=== PATIENT | female | born 1955 | race Caucasian/White ===

== ENCOUNTER 2018-11-17 05:34 | Inpatient (IN) ==
--- NOTE | 2018-10-30 08:35 | Anesthesiology Consultation ---
Date of Service October 30, 2018 Assessment & Plan (1) Encounter for pre-operative examination: PCP clearance 11/04/2018: "No contraindications to planned surgery. New- onset diabetes mellitus with A1c 6.5. No previous abnormal glucose. Discussed at length with Brandy. Will return after surgery for visit. No contraindication for surgery given A1c less than 7. Consider statin after surgery." Chart Review Chart Review: Acceptable Risk for Surgery and Patient seen in Pre Admission Testing Teaching & Discussion Instructed NPO after midnight before surgery, except medications with 15 cc of water. Medication instructions provided according to the PAT guidelines. History Surgery Operation Date: 11/17/18 07:00 Proposed Procedures p Right Total Knee Arthroplasty - Jules Kline MD Height/Weight Height: 5 ft 10 in Weight: 119.5 kg Allergies Allergy/AdvReac Type Severity Reaction Status Date / Time blue dye Allergy Intermediate Tachycardia Verified 10/27/18 11:10 adhesive tape AdvReac Mild SKIN Verified 10/27/18 11:11 BREAKS OUT Penicillins AdvReac Mild yeast Verified 10/27/18 11:10 infection Medications Home Medications Medication Instructions Recorded Confirmed Last Taken ergocalciferol (vitamin D2) 50,000 unit PO WK 10/27/18 10/27/18 Unknown [Vitamin D2] esomeprazole magnesium [Nexium] 40 mg PO QAM 10/27/18 10/27/18 Unknown hydrochlorothiazide 25 mg PO QAM 10/27/18 10/27/18 Unknown levothyroxine 75 mcg PO QAM 10/27/18 10/27/18 Unknown Past Medical History Medical History GERD (gastroesophageal reflux disease) Hypertension Hypothyroidism Obesity Osteoarthritis Premature ventricular contractions DETECTED WHILE BEING MONITORED FOR COLONOSCOPY 2017 Past Family History Family History Father Family history of diabetes mellitus Past Surgical History Surgical History H/O eye surgery LEFT ORBITAL REPAIR H/O foot surgery RT SIDE/BUNIONECTOMY AND HAMMER TOE CORRECTION History of colonoscopy History of dilatation and curettage History of esophagogastroduodenoscopy (EGD) History of hysterectomy History of tooth extraction Nausea and vomiting after administration of anesthetic agent Past Anesthesia History No Family Hx of Anesthesia Complications and Other PONV. History of PONV Yes Motion Sickness Screening History of Motion Sickness: Yes Social History Smoking Status: Never smoker Do You Dip or Chew Tobacco: No Hx Alcohol Use: No Hx Substance Use: No substance use type: does not use Exercise / Class Metabolic Activity II 4-5 Yardwork/Stairs/Walk up hill (denies CP or SOB with stairs, but avoiding stairs lately 2/2 knee pain) Review of Systems Pt denies any recent chest pain, shortness of breath, palpitations, cough, fever or URI. Physical Exam Vital Signs BP: 131/66 (pt reports she did not tkae her HCTZ yet this morning) P: 61bpm SPO2: 97% RA T: 97.9 F R: 16 ENMT Mouth: + dental restorations (few caps); no chipped teeth and no loose teeth Thyromental Distance: > or= 3.5 Finger Breadths (3.5) Mallampati Class: II Neck + thick neck; neck extension not limited Respiratory normal respiratory effort Auscultation: lungs clear to auscultation bilaterally Cardiovascular Rate/Rhythm: regular rate and regular rhythm Heart Sounds: no murmur Occ ectopic beat. Testing Electrocardiogram Date: 10/30/18 Findings: + NSR @ (62) Frequent PVCs. Chest X-Ray Date: 10/30/18 Findings: + NAD Laboratory Results 10/30/18 08:21 10/30/18 08:21 Blood Type O Positive 10/30/18 08:21 Antibody Screen NEGATIVE 10/30/18 08:21 PT 10.6 Seconds (9.0-12.0) 10/30/18 08:21 INR 1.0 (0.9-1.1) 10/30/18 08:21 APTT 23.7 Seconds (21.0-31.0) 10/30/18 08:21 Hemoglobin A1c 6.5 % (4.5-5.6) H 10/30/18 08:21 Urine Color Yellow 10/30/18 08:21 Urine Appearance Clear (Clear) 10/30/18 08:21 Urine pH 6.0 (4.5-7.5) 10/30/18 08:21 Ur Specific Stuart 1.008 (1.000-1.030) 10/30/18 08:21 Urine Protein Negative (Negative) 10/30/18 08:21 Urine Glucose (UA) Negative (Negative) 10/30/18 08:21 Urine Ketones Negative (Negative) 10/30/18 08:21 Urine Nitrite Negative (Negative) 10/30/18 08:21 Ur Leukocyte Esterase 2+ (Negative) H 10/30/18 08:21 Urine WBC (Auto) 10-30 /hpf (0-5) H 10/30/18 08:21 Urine RBC (Auto) 0-4 /hpf (0-4) 10/30/18 08:21 U Hyaline Cast (Auto) 0 /lpf (0-5) 10/30/18 08:21 U Epithel Cells (Auto) >30 /lpf (0-5) H 10/30/18 08:21 Urine Bacteria (Auto) Negative (Negative) 10/30/18 08:21 10/30/18 08:21 Urine Culture - Final Urine,Clean Catch More than three types of organisms present, all moderate counts mixed probable skin ramon. No further identifications or sensitivities to follow.
--- NOTE | 2018-10-30 08:44 | PAT Medication Instructions ---
Medication Instructions Date of Service October 30, 2018 Home Medications ergocalciferol (vitamin D2) 50,000 unit PO WK esomeprazole magnesium [Nexium] 40 mg PO QAM hydrochlorothiazide 25 mg PO QAM levothyroxine 75 mcg PO QAM DO NOT take the morning of surgery ergocalciferol (vitamin D2) 50,000 unit PO WK hydrochlorothiazide 25 mg PO QAM Take morning of surgery With a small sip of water, OTHERWISE NOTHING TO EAT OR DRINK AFTER MIDNIGHT: esomeprazole magnesium [Nexium] 40 mg PO QAM levothyroxine 75 mcg PO QAM Other Notes If you have any questions please call us at [phone] or [phone] or [phone] or [phone]
--- NOTE | 2018-10-30 09:26 | XRay Report ---
XR chest Pre-admission PA/Lat CLINICAL HISTORY: Preoperative evaluation COMPARISON STUDY: No previous studies for comparison. FINDINGS: Lung volumes are normal. There is no pneumothorax or pleural effusion. There is no consolid ation or evidence for pulmonary edema. Cardiac size is normal. Mediastinal contours are normal. IMPRESSION: No acute cardiopulmonary findings. Electronically signed by: Dejuan Angel M.D. 10/30/2018 9:25 AM
[2018-10-30 10:16] LABS: Basophils # (auto) 0.03 K/uL (0-0.2); Basophils % (auto) 0.4 %; Eosinophils # (auto) 0.24 K/uL (0-0.5); Eosinophils % (auto) 3.1 %; Hematocrit (blood only) 39.4 % (37-47); Hemoglobin 13.4 g/dL (12.0-16.0); Immature Granulocytes # (auto) 0.02 K/uL (0.00-0.02); Immature Granulocytes % (auto) 0.3 %; Lymphocytes # (auto) 2.96 K/uL (1.2-3.4); Mean Corpuscular Volume 89.1 fL (80-100); Mean Platelet Volume 10.7 fL (7.4-10.4); Monocytes % (auto) 7.7 %; Neutrophils # (auto) 3.94 K/uL (1.4-6.5); Neutrophils % (auto) 50.5 %; Platelet Count 252 K/uL (130-400); RDW Coefficient of Variation 13.8 % (11.5-14.5); RDW Standard Deviation 44.9 fL (36.4-46.3); Red Blood Count 4.42 M/uL (4.2-5.4); White Blood Count 7.79 K/uL (4.8-10.8)
[2018-10-30 10:25] LABS: Albumin Level 3.4 gm/dl (3.4-5.0); BUN Creatinine Ratio 14.5 (10-20); Calcium 8.6 mg/dl (8.5-10.1); Creatinine Clr Calc Pharmacy 87.8 ml/min; Est GFR (African American) 76.8; Est GFR (Non-African American) 66.3; Potassium 3.8 mmol/L (3.5-5.1)
[2018-10-30 10:26] LABS: Estimated Average Glucose 140 mg/dl; Hemoglobin A1C 6.5 % (4.5-5.6)
[2018-10-30 10:29] LABS: Appearance Urine Clear (Clear); Bacteria Urine Automated Negative (Negative); Bilirubin Urine Negative (Negative); Blood Urine Negative (Negative); Cast Urine Automated 0 /lpf (0-5); Color Urine Yellow; Epithelial Cell Urine Auto >30 /lpf (0-5); Glucose Urine UA Negative (Negative); Ketones Urine Negative (Negative); Leukocyte Esterase Urine 2+ (Negative); Nitrite Urine Negative (Negative); Protein Urine Negative (Negative); RBC Urine Automated 0-4 /hpf (0-4); Specific Gravity Urine 1.008 (1.000-1.030); Urobilinogen Urine Negative (Negative)
[2018-10-30 10:33] LABS: Partial Thromboplastin Ratio 0.9; Partial Thromboplastin Time 23.7 Seconds (21.0-31.0); Prothrombin Time 10.6 Seconds (9.0-12.0)
--- NOTE | 2018-11-11 15:53 | History and Physical Report ---
DATE OF ADMISSION: 11/17/2018 CHIEF COMPLAINT: Right knee pain. HISTORY OF PRESENT ILLNESS: The patient is a 63-year-old female with known osteoarthritis about her bilateral knees, right worse than left. She has had previous corticosteroid as well as viscosupplementation injections. She continues to have pain with activities of daily living. She has pain with prolonged weightbearing and standing activities. She has difficulty with any kneeling, bending, or squatting activities. Due to ongoing pain and disability, she now desires to proceed with right total knee arthroplasty. PAST MEDICAL HISTORY: Type 2 diabetes, borderline hypercholesterolemia, hypothyroidism, hypertension, osteoarthritis, vitamin D deficiency. PAST SURGICAL HISTORY: Facial surgery, foot surgery. MEDICATIONS: Vitamin C 1000 mg 2 tablets daily, vitamin D 50,000 units weekly, Nexium 40 mg daily, HCTZ 25 mg daily, Ativan 0.5 mg daily p.r.n., scopolamine transdermal patch every 3 days, Synthroid 75 mcg daily, valacyclovir 1 gram 2 tablets twice daily at onset of symptoms. ALLERGIES: PROTONIX AND PENICILLIN. SOCIAL HISTORY AND REVIEW OF SYSTEMS: Noncontributory. PHYSICAL EXAMINATION: GENERAL: Well-nourished, well-developed, obese female who appears her stated age. HEENT: Normocephalic, atraumatic, extraocular movements intact, oropharynx pink and moist. NECK: Supple without adenopathy. LUNGS: Clear to auscultation bilaterally. HEART: Regular rate and rhythm. ABDOMEN: Soft, nontender, nondistended, obese. EXTREMITIES: The upper extremities are within normal limits. The right knee is neutrally aligned. She complains primarily of medial compartment pain. Her range of motion is from to 125 degrees. X-RAYS: X-rays were reviewed. She has severe osteoarthritis about the right knee with bone on bone arthritis of the medial compartment. There are medial joint line osteophytes. There is severe patellofemoral arthritis with joint line narrowing and osteophyte as well. IMPRESSION: Right knee degenerative joint disease. PLAN: Risks versus benefits were discussed, consent was obtained. The patient's primary care physician is Shelly Tejeda. Will proceed with right total knee arthroplasty as indicated.
[2018-11-17] MEDS ORDERED: GABAPENTIN 300 MG x 2 PO SCH (06:00)
[2018-11-17] MEDS ORDERED: CeleBREX 200 MG CAP PO SCH (06:00)
[2018-11-17] MEDS ORDERED: TRANEXAMIC ACID 1,000 MG **IV Pre-op IV SCH (06:00)
[2018-11-17] MEDS ORDERED: FAMOTIDINE 20 MG TAB PO SCH (06:00)
[2018-11-17] MEDS ORDERED: ACETAMINOPHEN 500 MG TAB PO SCH (06:00)
[2018-11-17] MEDS ORDERED: dexAMETHasone 4 MG TAB PO SCH (06:00)
[2018-11-17] MEDS ORDERED: ROPIVACAINE 0.5% HCL/PF 150 MG, BUPIVACAINE 0.5% MPF 30 ML, EPINEPHrine 30MG/30ML (OR U... INFIL SCH (06:00)
[2018-11-17] MEDS ORDERED: CLINDAMYCIN 600 MG/54 ML BAG IV SCH (06:00)
[2018-11-17] MEDS ORDERED: LR 500ML BOLUS, THEN 15ML/HR IV SCH (06:00)
[2018-11-17] MEDS ORDERED: ROPIVACAINE 0.5% 5 MG/ML 30 ML VIAL ONE (06:28)
[2018-11-17] MEDS ORDERED: BUPIVACAINE 0.5 % 5 MG/1 ML PF 10ML VIAL ONE (06:28)
[2018-11-17] MEDS ORDERED: EPINEPHrine INJ 1 MG/ML AMP ONE (06:28)
[2018-11-17] MEDS ORDERED: fentaNYL citrate 100 MCG/2 ML VIAL ONE (06:29)
[2018-11-17] MEDS ORDERED: MIDAZOLAM HCL 1 MG/ML 2ML VIAL ONE (06:29)
[2018-11-17] MEDS ORDERED: PROPOFOL IV EMULSION 10 MG/ML 20 ML VIAL IV ONE ×2 (06:29→09:34)
[2018-11-17] MEDS ORDERED: TRANEXAMIC ACID 1,000 MG **IV Intra-op IV SCH (06:30)
[2018-11-17] MEDS ORDERED: POVIDONE-IODINE OP SOLN 30 ML BTL ONE (07:19)
[2018-11-17] MEDS ORDERED: ORTHO JOINT ANESTHETIC ONE (07:19)
[2018-11-17] MEDS ORDERED: BACITRACIN INJ 50,000 UNIT VIAL ONE (07:20)
[2018-11-17] MEDS ORDERED: ePHEDrine sulfate 50 MG/ML AMP IV PRN (07:36)
[2018-11-17] MEDS ORDERED: HYDROmorphone INJ 1 MG/ML SYRINGE IV PRN (07:36)
[2018-11-17] MEDS ORDERED: ATROPINE SULFATE 0.1 MG/ML 10ML SYR IV PRN (07:36)
[2018-11-17] MEDS ORDERED: LABETALOL HCL IV 5 MG/ML 20ML IV PRN (07:36)
[2018-11-17] MEDS ORDERED: PHENYLEPHRINE 100MCG/ML 5ML SYR IV PRN (07:36)
[2018-11-17] MEDS ORDERED: fentaNYL citrate 100 MCG/2 ML VIAL IV PRN (07:36)
[2018-11-17] MEDS ORDERED: ONDANSETRON INJ 2 MG/ML 2 ML VIAL IV PRN ×2 (07:36→11:21)
--- NOTE | 2018-11-17 08:00 | History & Physical Bridge Note ---
Date of Service November 17, 2018 History & Physical Bridge Note I have examined the patient, reviewed the History & Physical and in the interval since the performance of the History & Physical I have noted the following changes of clinical significance: no changes noted
--- NOTE | 2018-11-17 09:53 | Operative Report ---
Post Operative Report Pre & Post Diagnosis Operation Date: 11/17/18 08:20 Pre-Op Diagnosis: RIGHT KNEE OSTEOARTHRITIS Post-Op Diagnosis: RIGHT KNEE OSTEOARTHRITIS Procedure Operation Date: 11/17/18 08:20 Actual Procedures p Right Total Knee Arthroplasty, Cemented(Right) - Jules Kline MD Surgeon Jules Kline MD Lining Setter Jonathon Estimated Blood Loss 10 Findings Consistent with Post-Op Diagnosis Specimens Bone fragments Anesthesia Type Spinal Complications none Disposition Accompanied Patient To Recovery: No Disposition: Recovery Room Indications Knee pain Description of Procedure Patient's right leg was prepped and draped in usual sterile manner. The limb was exsanguinated with an Esmarch bandage and tourniquet inflated to 300 mmHg. Longitudinal incision was made and a medium parapatellar was made per the patella was everted and knee was flexed. The fat pad was removed and the proximal tibia was osteotomized bone fragment was removed. Next a drill was used to gain access to the femoral canal and a flexible alignment guide was placed in the distal femoral cut was made. The femur sized to a size 5 anterior shift was utilized in the tibial and femoral cuts were all made. After removal of all bone fragments the medial and lateral meniscal remnants were made in trial femur was placed in the drill was placed for the femoral pegs and the trial femur was placed. Blunt Hohmann was used to present the tibia was size 4 tibia was chosen in size 19 poly-was chosen. Patella was reamed and a 36 mm patella was chosen. The patella trial tracked quite well the knee good range of motion the patella was in other trials were removed the knee was thoroughly irrigated periarticular joint mix was injected and the final components were impacted into position. Cement was mixed and the final components were cemented in position and remove all excess cement the Betadine soak was utilized and Hemovac drain was placed. Fascia was closed using #1 Vicryl subcutaneous was closed using 0 Dexon and the skin was closed was applied. Sterile dressing of Adaptic 4 x 4's sterile web roll and a lipase is applied. Mr. Holt was utilized all portions of the including prepping draping surgical assistance wound closure and dressing application. I attest to the content of the Intraoperative Record and any orders documented therein. Any exceptions are noted below.
--- NOTE | 2018-11-17 11:07 | Anesthesiology Progress Note ---
Date of Service November 17, 2018 Anesthesia Post Procedure Vital Signs Vital Signs: Temp Pulse Pulse Resp BP BP Pulse Ox 11/17/18 10:55 36.2 C L 84 18 128/80 96 11/17/18 10:45 84 16 120/67 98 11/17/18 10:35 90 19 104/59 L 98 11/17/18 10:27 36.2 C L 92 H 20 89/50 L 97 11/17/18 06:27 36.5 C 75 18 158/105 H Notes Mental Status: alert / awake / arousable Patient Amnestic to Procedure: Yes Nausea / Vomiting: adequately controlled Pain: adequately controlled Airway Patency, RR, SpO2: stable & adequate BP & HR: stable & adequate Hydration State: stable & adequate Neuraxial Anesthesia: was administered and sensory block is resolving Anesthetic Complications: no major complications apparent and Pt Satisfied with anesthetic care
[2018-11-17] MEDS ORDERED: SODIUM CHLORIDE 0.9% 1000ML 1,000 ML IV SCH (11:21)
[2018-11-17] MEDS ORDERED: BISACODYL 10 MG SUPP PR PRN (11:21)
[2018-11-17] MEDS ORDERED: HYDROmorphone INJ 0.5 MG/0.5 ML SYR IV PRN (11:21)
[2018-11-17] MEDS ORDERED: MAGNESIUM HYDROXIDE SUSP 30 ML UDC PO PRN (11:21)
[2018-11-17] MEDS ORDERED: NALOXONE HCL 0.4 MG/1 ML VIAL/CARP IV PRN (11:21)
[2018-11-17] MEDS ORDERED: PHARMACY GLYCEMIC MGMT CONSULT PRN (11:33)
[2018-11-17] MEDS ORDERED: GLUCOSE 40% GEL 15 GM TUBE PO PRN (11:45)
[2018-11-17] MEDS ORDERED: DEXTROSE 50% 50 ML SYRINGE IV PRN (11:45)
[2018-11-17] MEDS ORDERED: CARBOHYDRATES FOR HYPOGLYCEMIA PO PRN (11:45)
[2018-11-17] MEDS ORDERED: GLUCOSE 10 TABS/TUBE PO PRN (11:45)
[2018-11-17] MEDS ORDERED: GLUCAGON FOR INJ 1 MG VIAL IM PRN (11:45)
--- NOTE | 2018-11-17 11:47 | XRay Report ---
XR knee RT 2V routine HISTORY: 63 years-old Female Surgical Post Op right knee total joint arthroplasty. COMPARISON: None available TECHNIQUE: 2 views of the right knee FINDINGS: Right knee total joint arthroplasty with patellar resurfacing. Alignment is satisfactory without acut e fracture or retained foreign body. Surgical drainage catheter is noted with expected postsurgical s oft tissue swelling and deep tissue air. IMPRESSION: Right knee total joint arthroplasty with satisfactory alignment. The above report was generated using voice recognition software. It may contain grammatical, syntax o r spelling errors. Electronically signed by: Sea Antunez M.D. 11/17/2018 11:46 AM
[2018-11-17] MEDS: INSULIN ASPART 100 UNITS/ML 3 ML PEN SC SCH ×3 (13:28→21:20)
[2018-11-17] MEDS: ACETAMINOPHEN 500 MG TAB PO SCH ×2 (13:31→21:21)
--- NOTE | 2018-11-17 13:56 | Pharmacy Report ---
Glycemic Control Consultation - Date of Service November 17, 2018 - Scope Scope: Glycemic Pharmacist consulted by Dr Jaime Holt on 11-17-18 for glycemic control and to write orders per [facility] inpatient glycemic control protocol - Objective Weight: 117.934 kg Accuchecks BSG (last 24hrs): 11/17/18 11/17/18 05:57 12:03 POC Glucose 115 H 159 H HbA1c: Hemoglobin A1c 6.5 % (4.5-5.6) H 10/30/18 08:21 - Recent Pertinent Medications Outpatient Anti-diabetic Regimen: * no anti-diabetic meds at home * A1c = 6.5 % 10-30-18 Risk Factors for Insulin Resistance: * Steroids: Dxm 8 mg po x 1 preop, ortho (contains Dxm) * Recent Surgery: POD 0 * Diet: T2DM - Assessment & Plan Assessment & Plan: ASSESSMENT: * Patient is a 63 year old female, now s/p R TKA. PMHx significant for hypothyroidism, htn, osteoarthritis, DM2. Patient reports not being on any anti-diabetic medications at home despite A1C. Current A1C places her into the diabetic category. * Per nurse, patient very nervous about being on insulin in hospital - she talked with patient and agreeable to try if needed. * Patient received dexamethasone preop and also ortho mixture (contains dex) so anticipate steroid induced hyperglycemia postop - will utilize basal/bolus dosing PLAN FOR INPATIENT GLYCEMIC CONTROL: * Basal insulin - start with dinner x 1 - conservative with dosing since likely insulin sensitive * Lantus with dinner based upon BSG -For BSG less than 180 mg/dL - no Lantus -For BSG 180 mg/dL or greater - Lantus 15 units * Bolus insulin - add overnight check * NovoLog per scale ACHS or Q6hrs while NPO * Goal Range: Low 110 mg/dL - High 140 mg/dL * Correction Factor: 15 mg/dL/unit * Nutritional / Prandial insulin per carb ratio of 1 unit per 6 grams CHO consumed * Please note that the plan above was derived based on current level of insulin resistance and hospital stress. These recommendations are appropriate for inpatient admission only. Plan of care upon discharge will need to be reassessed to avoid potential outpatient hypo/hyperglycemia. Thank you.
[2018-11-17] MEDS ORDERED: LANTUS PER UNIT CHARGE SQ SCH ×2 (16:30→21:00)
[2018-11-17] MEDS: FERROUS SULFATE 325 MG TAB PO SCH (18:01)
[2018-11-17] MEDS: CLINDAMYCIN 600 MG in DEXTROSE 5% 50 ML IV SCH (18:10)
[2018-11-17] MEDS: ASPIRIN 81 MG ECTAB PO SCH (21:21)
[2018-11-17] MEDS: SENNA 8.6 MG TAB PO SCH (21:21)
[2018-11-17] MEDS: DOCUSATE SODIUM 100 MG CAP PO SCH (21:21)
[2018-11-17] MEDS: OXYCODONE HCL IR 5 MG TAB (IMMEDIATE RELEASE) PO PRN (22:58)
[2018-11-18] MEDS ORDERED: INSULIN ASPART 100 UNITS/ML 3 ML PEN SC SCH
[2018-11-18] MEDS: CLINDAMYCIN 600 MG in DEXTROSE 5% 50 ML IV SCH (00:23)
[2018-11-18 05:40] LABS: Hematocrit (blood only) 33.8 % (37-47); Hemoglobin 11.9 g/dL (12.0-16.0); Mean Corpuscular Hgb Conc 35.2 g/dL (32-36); Mean Corpuscular Volume 86.2 fL (80-100); Mean Platelet Volume 10.2 fL (7.4-10.4); Platelet Count 254 K/uL (130-400); RDW Coefficient of Variation 13.8 % (11.5-14.5); RDW Standard Deviation 43.1 fL (36.4-46.3); Red Blood Count 3.92 M/uL (4.2-5.4); White Blood Count 15.41 K/uL (4.8-10.8)
[2018-11-18] MEDS: OXYCODONE HCL IR 5 MG TAB (IMMEDIATE RELEASE) PO PRN ×4 (05:58→21:25)
[2018-11-18] MEDS: ACETAMINOPHEN 500 MG TAB PO SCH ×3 (05:58→21:25)
[2018-11-18] MEDS: LEVOTHYROXINE SODIUM 75 MCG TABLET PO SCH (05:59)
[2018-11-18 06:09] LABS: BUN Creatinine Ratio 19.8 (10-20); Calcium 8.4 mg/dl (8.5-10.1); Creatinine Clr Calc Pharmacy 95.5 ml/min; Est GFR (African American) 85.7; Potassium 3.1 mmol/L (3.5-5.1)
--- NOTE | 2018-11-18 07:16 | Anesthesiology Progress Note ---
Date of Service November 18, 2018 Anesthesia Post Procedure Vital Signs Vital Signs: Temp Pulse Pulse Resp BP BP Pulse Ox 11/18/18 03:17 36.5 C 57 L 14 115/71 96 11/17/18 23:07 36.6 C 62 14 126/76 95 11/17/18 19:16 36.6 C 69 17 126/75 97 11/17/18 15:34 36.9 C 85 17 129/82 95 11/17/18 14:15 36.7 C 82 16 129/78 95 11/17/18 13:13 37.3 C 86 16 123/79 95 11/17/18 12:17 36.4 C L 76 16 133/85 96 11/17/18 11:56 77 18 130/82 95 11/17/18 11:22 36.7 C 73 18 124/77 93 11/17/18 11:05 81 15 129/74 93 11/17/18 10:55 36.2 C L 84 18 128/80 96 11/17/18 10:45 84 16 120/67 98 11/17/18 10:35 90 19 104/59 L 98 11/17/18 10:27 36.2 C L 92 H 20 89/50 L 97 Pain Intensity Right Knee: Pain Intensity: 5 Notes Mental Status: alert / awake / arousable and participated in evaluation Patient Amnestic to Procedure: Yes Nausea / Vomiting: adequately controlled Pain: adequately controlled Airway Patency, RR, SpO2: stable & adequate BP & HR: stable & adequate Hydration State: stable & adequate Neuraxial Anesthesia: was administered and sensory block resolved Anesthetic Complications: no major complications apparent and Pt Satisfied with anesthetic care
--- NOTE | 2018-11-18 07:22 | Orthopedic Progress Note ---
Date of Service November 18, 2018 Assessment & Plan (1) Status post right knee replacement: 63 yo female stable POD #1 s/p right TKA 1. Med management 2. DVT prophylaxis- ASA, SCDs 3. PT/OT 4. D/C planning- home w/ HH Subjective Pt resting in bed, pain controlled, denies complaints Physical Exam Vital Signs (Past 24 Hours): Last Vital Signs Temp 36.5 C 11/18/18 03:17 Pulse 57 L 11/18/18 03:17 Resp 14 11/18/18 03:17 BP 115/71 11/18/18 03:17 Pulse Ox 96 11/18/18 03:17 Physical Exam: Toes mobile, N/V/I, dressing and drain in place Results & Data Laboratory Results 11/18/18 11/18/18 11/18/18 Range/Units 05:11 05:11 00:13 WBC 15.41 H (4.8-10.8) K/uL RBC 3.92 L (4.2-5.4) M/uL Hgb 11.9 L (12.0-16.0) g/dL Hct 33.8 L (37-47) % MCV 86.2 (80-100) fL MCH 30.4 (25-34) pg MCHC 35.2 (32-36) g/dL RDW Std Deviation 43.1 (36.4-46.3) fL RDW Coeff of Jovita 13.8 (11.5-14.5) % Plt Count 254 (130-400) K/uL MPV 10.2 (7.4-10.4) fL Sodium 143 (136-145) mmol/L Potassium 3.1 L (3.5-5.1) mmol/L Chloride 106 (98-107) mmol/L Carbon Dioxide 27 (21-32) mmol/L Anion Gap 10.0 (3-11) BUN 17 (7-18) mg/dl Creatinine 0.84 (0.6-1.2) mg/dl Est Cr Clr Drug Dosing 95.5 ml/min Est GFR ( Amer) 85.7 Est GFR (Non-Af Amer) 74.0 BUN/Creatinine Ratio 19.8 (10-20) Glucose 129 H (70-99) mg/dl POC Glucose 125 H (70-99) Calcium 8.4 L (8.5-10.1) mg/dl 11/17/18 11/17/18 11/17/18 Range/Units 20:45 17:23 12:03 WBC (4.8-10.8) K/uL RBC (4.2-5.4) M/uL Hgb (12.0-16.0) g/dL Hct (37-47) % MCV (80-100) fL MCH (25-34) pg MCHC (32-36) g/dL RDW Std Deviation (36.4-46.3) fL RDW Coeff of Jovita (11.5-14.5) % Plt Count (130-400) K/uL MPV (7.4-10.4) fL Sodium (136-145) mmol/L Potassium (3.5-5.1) mmol/L Chloride (98-107) mmol/L Carbon Dioxide (21-32) mmol/L Anion Gap (3-11) BUN (7-18) mg/dl Creatinine (0.6-1.2) mg/dl Est Cr Clr Drug Dosing ml/min Est GFR ( Amer) Est GFR (Non-Af Amer) BUN/Creatinine Ratio (10-20) Glucose (70-99) mg/dl POC Glucose 171 H 143 H 159 H (70-99) Calcium (8.5-10.1) mg/dl
[2018-11-18] MEDS: FERROUS SULFATE 325 MG TAB PO SCH ×2 (08:47→17:18)
[2018-11-18] MEDS: DOCUSATE SODIUM 100 MG CAP PO SCH ×2 (08:47→21:24)
[2018-11-18] MEDS: hydroCHLOROthiazide 25 MG TAB PO SCH (08:47)
[2018-11-18] MEDS: ASPIRIN 81 MG ECTAB PO SCH ×2 (08:47→21:24)
[2018-11-18] MEDS: MULTIVITAMIN TAB PO SCH (08:48)
[2018-11-18] MEDS: PANTOprazole 40 MG TAB PO SCH (08:48)
[2018-11-18] MEDS: INSULIN ASPART 100 UNITS/ML 3 ML PEN SC SCH ×4 (08:53→21:43)
[2018-11-18] MEDS: SENNA 8.6 MG TAB PO SCH (21:24)
[2018-11-19] MEDS: OXYCODONE HCL IR 5 MG TAB (IMMEDIATE RELEASE) PO PRN ×3 (01:40→11:54)
[2018-11-19] MEDS: LEVOTHYROXINE SODIUM 75 MCG TABLET PO SCH (05:32)
[2018-11-19] MEDS: ACETAMINOPHEN 500 MG TAB PO SCH (05:32)
--- NOTE | 2018-11-19 07:57 | Orthopedic Progress Note ---
Date of Service November 19, 2018 Assessment & Plan (1) Status post right knee replacement: 63 yo female stable POD #2 s/p right TKA. After our discussion, the patient stated that she was having a little bit of weakness in the right knee and it was giving out at times when she was walking. Discussed that if this was still continuing today, we will fit her with an immobilizer and that she would need to use this for ambulation until her knee strengthened up. She could do range of motion exercises as tolerated. Potassium was noted to be 3.1 yesterday, and we will recheck it today. 1. Med management 2. DVT prophylaxis- ASA, SCDs 3. PT/OT 4. D/C planning- home w/ HH today. Subjective Postop day 2 status post right total knee arthroplasty. Patient is sitting in the chair at the bedside. She has no overt complaints but many questions. Pain is controlled. She denies shortness of breath, chest pain, lightheadedness. She is hoping to go home today. Physical Exam Vital Signs (Past 24 Hours): Last Vital Signs Temp 36.8 C 11/19/18 06:30 Pulse 65 11/19/18 06:30 Resp 14 11/19/18 06:30 BP 132/87 11/19/18 06:30 Pulse Ox 97 11/19/18 06:30 Physical Exam: Zip line closure system is intact. No overt erythema. Calves are soft and nontender. She has some mild drainage at the distal end of the incision. Neurovascular is intact. She does have some mild tingling over the medial aspect of the proximal tibia. She has good dorsiflexion, plantarflexion of the right foot. Decreased sensation on the dorsum of the foot but states that she has some slight numbness or tingling in the on the plantar aspect.
[2018-11-19] MEDS: PANTOprazole 40 MG TAB PO SCH (09:01)
[2018-11-19] MEDS: DOCUSATE SODIUM 100 MG CAP PO SCH (09:01)
[2018-11-19] MEDS: MULTIVITAMIN TAB PO SCH (09:01)
[2018-11-19] MEDS: ASPIRIN 81 MG ECTAB PO SCH (09:01)
[2018-11-19] MEDS: FERROUS SULFATE 325 MG TAB PO SCH (09:02)
[2018-11-19] MEDS: hydroCHLOROthiazide 25 MG TAB PO SCH (09:02)
[2018-11-19] MEDS: INSULIN ASPART 100 UNITS/ML 3 ML PEN SC SCH ×2 (09:05→12:58)
[2018-11-19 09:12] LABS: BUN Creatinine Ratio 18.1 (10-20); Calcium 8.6 mg/dl (8.5-10.1); Creatinine Clr Calc Pharmacy 75.7 ml/min; Est GFR (African American) 64.7; Est GFR (Non-African American) 55.8; Potassium 3.6 mmol/L (3.5-5.1)
--- NOTE | 2018-11-19 10:47 | Pharmacy Report ---
Pharmacy Glycemic Short Note 2 - Date of Service November 19, 2018 - Glycemic Short BSG Results (Last 24 hours): 11/18/18 11/18/18 11/18/18 11:49 17:22 20:39 Glucose POC Glucose 111 H 99 110 H 11/19/18 11/19/18 06:41 08:20 Glucose 159 H POC Glucose 113 H ASSESSMENT: * Patient is a 63 year old female, now s/p R TKA. PMHx significant for hypothyroidism, htn, osteoarthritis, DM2. Patient reports not being on any anti-diabetic medications at home despite A1C. Current A1C places her into the diabetic category. * Per nurse, patient very nervous about being on insulin in hospital - she talked with patient and agreeable to try if needed. * Patient received dexamethasone preop and also ortho mixture (contains dex) so anticipate steroid induced hyperglycemia postop - will utilize basal/bolus dosing 11/19: * Patient received total of 10 units of insulin yesterday, all BSGs within range * No need for Lantus - will continue Novolog with same CF/CR * Per review of MD notes, patient likely go home later today PLAN FOR INPATIENT GLYCEMIC CONTROL: * Basal insulin -none * Bolus insulin - continue same * NovoLog per scale ACHS or Q6hrs while NPO * Goal Range: Low 110 mg/dL - High 140 mg/dL * Correction Factor: 35 mg/dL/unit * Nutritional / Prandial insulin per carb ratio of 1 unit per 12 grams CHO consumed * Please note that the plan above was derived based on current level of insulin resistance and hospital stress. These recommendations are appropriate for inpatient admission only. Plan of care upon discharge will need to be reassessed to avoid potential outpatient hypo/hyperglycemia. Thank you. PLAN FOR DISCHARGE: * A1C on admission of 6.5% places patient in diabetic category. Patient currently not on any diabetic agents at home. Would recommend follow up with PCP outpatient to discuss lifestyle changes vs. addition of medications.
--- NOTE | 2018-11-24 01:00 | Discharge Summary ---
DISCHARGE DIAGNOSIS: Right knee osteoarthritis. SECONDARY DIAGNOSES: History of diabetes mellitus type 2, borderline hypercholesterolemia, hypothyroidism, hypertension, osteoarthritis, vitamin D deficiency. CONSULTATIONS: None. COMPLICATIONS: None. PROCEDURES: Right total knee arthroplasty performed by Dr. Kline on 11/17/2018. BRIEF HISTORY: As dictated in the history and physical. HOSPITAL SUMMARY: The patient was admitted on the above-noted date and had the above-noted surgery performed, which she tolerated well. On her first postoperative day, she was resting comfortably in bed. Pain was controlled and she had no complaints. Vital signs were stable. She was afebrile. Dressings were clean, dry and intact. Neurovascularly intact. Toes were mobile. Hemoglobin was 11.9 and she was started on physical therapy protocol and continued on DVT prophylaxis and pain management. By her second postoperative day, she was remaining stable. She was sitting in the chair at the bedside. She has no overt complaints and we had gone over many questions. Pain was controlled. She had no shortness of breath, chest pain, or lightheadedness, and was hoping to go home. Vital signs were stable and she was afebrile. The ZipLine closure system was intact. She had no overt erythema. Calves were soft and nontender. She has some mild drainage at the distal end of the incision. Neurovascularly was intact. She had some mild tingling over the medial aspect of the proximal tibia. She had good dorsiflexion and plantar flexion in the right foot, decreased sensation in the dorsum of the foot, but states that she had some slight numbness or tingling on the plantar aspect. She was continued on her PT and OT protocols and DVT prophylaxis and pain management. In physical therapy, she had obtained 95 degrees of flexion and ambulated 250 feet x2 with a rolling walker. She was otherwise remaining stable and progressing well with her PT and it was felt she could be discharged to home. For further review, please see chart. LABORATORY AND X-RAY DATA: As per chart. DISCHARGE INSTRUCTIONS: The patient was discharged to home in satisfactory condition on 11/19/2018. DIET: Regular. ACTIVITY: Weightbearing as tolerated, right lower extremity. Follow TK instruction sheets and special care instructions as noted. Follow up with Dr. Kline in 2 weeks. The patient to call for appointment if one has not made for you. DISCHARGE MEDICATIONS: Acetaminophen 1000 mg p.o. q. 8 hours, aspirin 81 mg p.o. b.i.d. for 30 days, cefadroxil 500 mg p.o. b.i.d., oxycodone 5-10 mg p.o. q. 6 hours p.r.n. Resume home meds as listed.
== END 2018-11-19 14:22 | disposition home health service (06) | DRG 470 ==
LOC: ASU 05:34 → 3E 10:36

== ENCOUNTER 2019-03-30 08:20 | Inpatient (IN) ==
[2019-03-03 17:45] LABS: Basophils # (auto) 0.03 K/uL (0-0.2); Basophils % (auto) 0.4 %; Eosinophils # (auto) 0.38 K/uL (0-0.5); Eosinophils % (auto) 4.8 %; Hematocrit (blood only) 37.7 % (37-47); Hemoglobin 12.7 g/dL (12.0-16.0); Immature Granulocytes # (auto) 0.02 K/uL (0.00-0.02); Immature Granulocytes % (auto) 0.3 %; Lymphocytes # (auto) 3.24 K/uL (1.2-3.4); Mean Corpuscular Hgb Conc 33.7 g/dL (32-36); Mean Corpuscular Volume 86.7 fL (80-100); Mean Platelet Volume 10.8 fL (7.4-10.4); Monocytes # (auto) 0.44 K/uL (0.11-0.59); Monocytes % (auto) 5.6 %; Neutrophils # (auto) 3.79 K/uL (1.4-6.5); Neutrophils % (auto) 47.9 %; Platelet Count 266 K/uL (130-400); Red Blood Count 4.35 M/uL (4.2-5.4)
[2019-03-03 17:50] LABS: Appearance Urine Clear (Clear); Bilirubin Urine Negative (Negative); Blood Urine Negative (Negative); Color Urine Yellow; Glucose Urine UA Negative (Negative); Ketones Urine Negative (Negative); Leukocyte Esterase Urine Negative (Negative); Nitrite Urine Negative (Negative); Protein Urine Negative (Negative); Specific Gravity Urine 1.016 (1.000-1.030); Urobilinogen Urine Negative (Negative); pH Urine 5.5 (4.5-7.5)
[2019-03-03 17:58] LABS: INR 1.1 (0.9-1.1)
[2019-03-03 18:13] LABS: Albumin Level 3.9 gm/dl (3.4-5.0); BUN Creatinine Ratio 16.5 (10-20); Blood Urea Nitrogen 17 mg/dl (7-18); Calcium 9.5 mg/dl (8.5-10.1); Carbon Dioxide 32 mmol/L (21-32); Chloride 102 mmol/L (98-107); Est GFR (African American) 66.2; Est GFR (Non-African American) 57.1; Glucose 95 mg/dl (70-99); Potassium 3.1 mmol/L (3.5-5.1); Sodium 138 mmol/L (136-145)
[2019-03-04 06:27] LABS: Estimated Average Glucose 128 mg/dl; Hemoglobin A1C 6.1 % (4.5-5.6)
--- NOTE | 2019-03-17 14:43 | Anesthesiology Consultation ---
Date of Service March 17, 2019 Assessment & Plan (1) Encounter for pre-operative examination: K+ 3.1 on pre-op labs, consider rpt AM DOS at anesthesia discretion. S/P R TKA 11/26/18, SAB + PNB both successful x 1 attempt Chart Review Chart Review: Acceptable Risk for Surgery and Patient NOT seen in Pre Admission Testing History Surgery Operation Date: 03/30/19 09:10 Proposed Procedures p Left Total Knee Arthroplasty - Brien Beltran DO Height/Weight Height: 5 ft 10 in Weight: 117.934 kg Allergies Allergy/AdvReac Type Severity Reaction Status Date / Time blue dye AdvReac Intermediate Tachycardia Verified 03/03/19 09:14 adhesive tape AdvReac Mild SKIN Verified 03/03/19 09:14 BREAKS OUT Penicillins AdvReac Mild yeast Verified 03/03/19 09:14 infection Medications Home Medications Medication Instructions Recorded Confirmed Last Taken ergocalciferol (vitamin D2) 50,000 unit PO WK 10/27/18 03/03/19 11/08/18 [Vitamin D2] esomeprazole magnesium [Nexium] 40 mg PO QAM 10/27/18 03/03/19 11/16/18 10:00 hydrochlorothiazide 25 mg PO QAM 10/27/18 03/03/19 11/16/18 10:00 levothyroxine 75 mcg PO QAM 10/27/18 03/03/19 11/17/18 03:30 ascorbic acid (vitamin C) [Vitamin 1,000 mg PO QAM 03/03/19 03/03/19 Unknown C] ibuprofen 200 mg PO QAM PRN 03/03/19 03/03/19 Unknown Past Medical History Medical History GERD (gastroesophageal reflux disease) Hypertension Hypothyroidism Obesity Osteoarthritis Premature ventricular contractions DETECTED WHILE BEING MONITORED FOR COLONOSCOPY 2017-NO ISSUES SINCE PER PT Past Family History Family History Father Family history of diabetes mellitus Sister Family history of diabetes mellitus Past Surgical History Surgical History H/O eye surgery LEFT ORBITAL REPAIR H/O foot surgery RT SIDE/BUNIONECTOMY AND HAMMER TOE CORRECTION History of colonoscopy History of dilatation and curettage History of esophagogastroduodenoscopy (EGD) History of hysterectomy History of tooth extraction History of total knee replacement RIGHT -- 11/26/18, SAB + PNB both successful x 1 attempt Nausea and vomiting after administration of anesthetic agent ALSO HAS BEEN SLOW TO WAKE UP IN THE PAST Social History Smoking Status: Never smoker Do You Dip or Chew Tobacco: No Hx Alcohol Use: No Hx Substance Use: No substance use type: does not use Testing Laboratory Results 03/03/19 16:33 03/03/19 16:33 PT 11.0 Seconds (9.0-12.0) 03/03/19 16:33 INR 1.1 (0.9-1.1) 03/03/19 16:33 Hemoglobin A1c 6.1 % (4.5-5.6) H 03/03/19 16:33 Urine Color Yellow 03/03/19 16:33 Urine Appearance Clear (Clear) 03/03/19 16:33 Urine pH 5.5 (4.5-7.5) 03/03/19 16:33 Ur Specific Jadwin 1.016 (1.000-1.030) 03/03/19 16:33 Urine Protein Negative (Negative) 03/03/19 16:33 Urine Glucose (UA) Negative (Negative) 03/03/19 16:33 Urine Ketones Negative (Negative) 03/03/19 16:33 Urine Nitrite Negative (Negative) 03/03/19 16:33 Ur Leukocyte Esterase Negative (Negative) 03/03/19 16:33 Blood Type O Positive 03/03/19 16:34 Antibody Screen NEGATIVE 03/03/19 16:34 Electrocardiogram Date: 10/30/18 Findings: + NSR @ (62) Frequent PVCs. Chest X-Ray Date: 10/30/18 Findings: + NAD
--- NOTE | 2019-03-29 19:19 | History & Physical Report ---
Date of Service March 29, 2019 Assessment & Plan (1) Degenerative joint disease of left knee: I have indicated the patient for left total knee replacement. The risks, benefits and complications of surgery were explained to the patient which include but not limited to infection, acute blood loss, DVT/PE, injury to nerves, vessels, bone, soft tissue, arthrofibrosis, chronic pain, failure of the prosthesis, knee dislocation, leg length discrepancy, need for additional surgery, cardiac and pulmonary events and . The patient wished to proceed with surgery and informed consent was obtained at this time. We will plan for ASA 81mg BID post-operatively for DVT prophylaxis. Upon discharge the patient will be discharged home with home health services. Appropriate clearances by PCP were obtained. History of Present Illness Chief Complaint: Left knee pain/djd Primary Care Provider: Armando Tejeda The patient is a 63 year old female who presents with complaints of severe left knee pain and DJD. The patient has failed outpatient conservative treatments to this point which included NSAIDs, IA corticosteroid inj, CARNES inj, home exercise, walking program. The patient's pain and limited function have progressed to the point where they severely hinder their activities of daily living and they no longer tolerate exercise programs. They are requesting to proceed with total knee replacement surgery. Allergies Allergy/AdvReac Type Severity Reaction Status Date / Time blue dye AdvReac Intermediate Tachycardia Verified 03/03/19 09:14 adhesive tape AdvReac Mild SKIN Verified 03/03/19 09:14 BREAKS OUT Penicillins AdvReac Mild yeast Verified 03/03/19 09:14 infection Home Medications Home Medications Medication Instructions Recorded Confirmed Type ergocalciferol (vitamin D2) 50,000 unit PO WK 10/27/18 03/03/19 History [Vitamin D2] esomeprazole magnesium [Nexium] 40 mg PO QAM 10/27/18 03/03/19 History hydrochlorothiazide 25 mg PO QAM 10/27/18 03/03/19 History levothyroxine 75 mcg PO QAM 10/27/18 03/03/19 History ascorbic acid (vitamin C) [Vitamin 1,000 mg PO QAM 03/03/19 03/03/19 History C] ibuprofen 200 mg PO QAM PRN 03/03/19 03/03/19 History Past Med/Surg History Medical History GERD (gastroesophageal reflux disease) Hypertension Hypothyroidism Obesity Osteoarthritis Premature ventricular contractions DETECTED WHILE BEING MONITORED FOR COLONOSCOPY 2018-NO ISSUES SINCE PER PT Surgical History H/O eye surgery LEFT ORBITAL REPAIR H/O foot surgery RT SIDE/BUNIONECTOMY AND HAMMER TOE CORRECTION History of colonoscopy History of dilatation and curettage History of esophagogastroduodenoscopy (EGD) History of hysterectomy History of tooth extraction History of total knee replacement RIGHT -- 11/26/18, SAB + PNB both successful x 1 attempt Nausea and vomiting after administration of anesthetic agent ALSO HAS BEEN SLOW TO WAKE UP IN THE PAST Family History Father Family history of diabetes mellitus Sister Family history of diabetes mellitus Social History Preferred Language: Bengali Communication Ability: Effective Console Operator Required: No Beliefs That Will Affect Care: None marital status: Current Living Situation: Spouse Other Information That Helps Us Care for You: No Feels Safe at Home: Yes Safety Concerns: Feels Safe At This Time Smoking Status: Never smoker Do You Dip or Chew Tobacco: No ; Second Hand Exposure: No ; Hx Alcohol Use: No Hx Substance Use: No Review of Systems Review of Systems: All systems reviewed & are unremarkable except as noted in HPI & below Constitutional: as per Subjective / HPI Physical Exam Physical Exam: LLE NVSI +EHL/FHL/TA/GS SILT grossly, +2 DP pulse, compartments soft NT, limited painful ROM, 3-115 degrees flexion, +crepitus. Constitutional: WD/WN, vitals as above Eyes: PERRL, conjunctivae normal, anicteric sclerae ENMT: external ear and nose normal, oropharynx normal Neck: trachea midline, no thyromegaly Respiratory: normal respiratory effort, lungs clear to auscultation Cardiovascular: RRR, no murmur, no edema Gastrointestinal (Abdomen): normal bowel sounds, soft, nontender, no hepatosplenomegaly Musculoskeletal: no cyanosis or clubbing, extremities motor strength 5/5 Skin: no rashes, warm and dry Neurologic: patellar DTR's 2+ bilat, sensation intact Psychiatric: A+Ox3, euthymic affect Lymphatic: no cervical or axillary lymphadenopathy Results & Data Diagnostic Findings Multiple views of the knee demonstrates severe tricompartmental DJD with complete loss of the medial and patellofemoral joint space. +osteophytes, +sclerosis, +subchondral cysts.
[~2019-03-30 08:20] MED LIST: ACETAMINOPHEN 500 MG TAB PO SCH; BUPIVACAINE 0.5 % 5 MG/1 ML PF 10ML VIAL ONE; CLINDAMYCIN 600 MG/54 ML BAG IV SCH; CeleBREX 200 MG CAP PO SCH; FAMOTIDINE 20 MG TAB PO SCH; GABAPENTIN 600 MG DOSE PO SCH; LR 500ML BOLUS, THEN 15ML/HR IV SCH; METOCLOPRAMIDE HCL 10 MG TABLET PO SCH; MIDAZOLAM HCL 1 MG/ML 2ML VIAL ONE; ROPIVACAINE 0.5% 5 MG/ML 30 ML VIAL ONE; ROPIVACAINE 0.5% HCL/PF 150 MG, BUPIVACAINE 0.5% MPF 30 ML, EPINEPHrine 30MG/30ML (OR U... INSTIL SCH; TRANEXAMIC ACID 1,000 MG **IV Intra-op IV SCH; TRANEXAMIC ACID 1,000 MG **IV Pre-op IV SCH; dexAMETHasone 4 MG TAB PO SCH; fentaNYL citrate 100 MCG/2 ML VIAL ONE
--- NOTE | 2019-03-30 08:50 | History & Physical Bridge Note ---
Date of Service March 30, 2019 History & Physical Bridge Note I have examined the patient, reviewed the History & Physical and in the interval since the performance of the History & Physical I have noted the following changes of clinical significance: no changes noted
[2019-03-30] MEDS ORDERED: ORTHO JOINT ANESTHETIC ONE (09:24)
[2019-03-30] MEDS ORDERED: BACITRACIN INJ 50,000 UNIT VIAL ONE (09:24)
[2019-03-30] MEDS ORDERED: ePHEDrine sulfate 50 MG/ML AMP IV PRN (10:35)
[2019-03-30] MEDS ORDERED: ATROPINE SULFATE 0.1 MG/ML 10ML SYR IV PRN (10:35)
[2019-03-30] MEDS ORDERED: HYDROmorphone INJ 2 MG/ML SYR/VIAL IV PRN (10:35)
[2019-03-30] MEDS ORDERED: ONDANSETRON INJ 2 MG/ML 2 ML VIAL ONE (10:50)
[2019-03-30] MEDS ORDERED: MIDAZOLAM HCL 1 MG/ML 2ML VIAL ONE (10:55)
[2019-03-30] MEDS ORDERED: PHENYLEPHRINE 100MCG/ML 5ML SYR ONE (10:57)
[2019-03-30] MEDS ORDERED: ePHEDrine sulfate 50 MG/ML SYR ONE (11:03)
[2019-03-30] MEDS ORDERED: KETAMINE HCL INJ 50 MG/ML 10 ML VIAL ONE (11:07)
[2019-03-30] MEDS ORDERED: PROPOFOL IV EMULSION 10 MG/ML 20 ML VIAL IV ONE (11:09)
--- NOTE | 2019-03-30 12:06 | Post Operative Brief Note ---
Immediate Post Op Note v1 Date of Surgery March 30, 2019 Pre & Post Diagnosis Operation Date: 03/30/19 11:20 Pre-Op Diagnosis: Left Knee Degenerative Joint Disease Post-Op Diagnosis: Left Knee Degenerative Joint Disease Procedure Operation Date: 03/30/19 11:20 Actual Procedures p Left Total Knee Arthroplasty(Left) - Brien Beltran DO Surgeon Brien Beltran DO Potato Inspector Aldo Lobo Estimated Blood Loss 50 Findings Consistent with Post-Op Diagnosis Fluids 1000 cc LR Specimens proximal tibia and distal femur bone fragments Anesthesia Type Spinal MAC Complications none Disposition Disposition: Recovery Room Overlapping Procedure I was present for: the critical portions of procedure. I was immediately available: during the entire case. Back up surgeon: was not required during procedure.
--- NOTE | 2019-03-30 12:21 | Operative Report ---
Post Operative Report Pre & Post Diagnosis Operation Date: 03/30/19 11:20 Pre-Op Diagnosis: Left Knee Degenerative Joint Disease Post-Op Diagnosis: Left Knee Degenerative Joint Disease Procedure Operation Date: 03/30/19 11:20 Actual Procedures p Left Total Knee Arthroplasty(Left) - Brien Beltran DO Surgeon Brien Beltran DO Dairy Processing Supervisor Aldo Lobo Estimated Blood Loss 50 Findings Consistent with Post-Op Diagnosis Fluids 1 L of LR Specimens Proximal tibia and distal femur bone fragments Anesthesia Type Spinal MAC Complications none Disposition Disposition: Recovery Room Indications The patient is a 63-year-old female presents with long history of severe left knee tricompartmental DJD and failed outpatient conservative treatments including NSAIDs, bracing, injections and home walking/exercise program. The patient's symptoms have progressed to the point where it has been difficult to perform normal activities of daily living. I have indicated the patient for a left total knee arthroplasty, the risks and benefits and complications of the procedure include but are not limited to infection bleeding damage to bone, nerves, vessels, surrounding soft tissue, blood clots, loss of function, leg length discrepancy, dislocation, failure of the components, need for additional surgery and . The patient wished to proceed with surgery at this time and informed consent was obtained. Appropriate clearances were obtained. Description of Procedure COMPONENTS USED: Nicole persona knee system: Femur size 10, Tibia size F tibial articulating surface 12 PS, Patella 32 mm Following induction of spinal anesthesia, a tourniquet was applied to the proximal aspect of the thigh and the patient's left leg was prepped and draped in the usual sterile manner. A timeout was performed, patient identified and site mary beth confirmed. Appropriate pre-operative IV antibiotics were given. The limb was exsanguinated with an Esmarch bandage and tourniquet was inflated to 300 mmHg. A longitudinal midline incision was made over the anterior knee. Subcutaneous tissue was sharply dissected down to fascia. Electrocautery was used for hemostasis. Next a parapatellar arthrotomy was performed. Patella was everted and the knee was flexed. A Jang retractor was used to expose the synovium above on the anterior aspect of the femur and removed down to bone. Next, the anterior fat pad was removed to aid in visualization. The medial face of the tibia was cleared of soft tissue first with a Bovie and a hill elevator. This tissue was retracted posteriorly using a blunt Hohmann. Next, the extra-medullary tibial cutting guide was placed to the anterior aspect of the tibia. The tibia resection level was set taking 2mm from the defective tibial condyle. Resection depth was once again confirmed with turner wing. The medial and lateral collateral ligament was protected with two Hohmann retractors. The tibia guide was removed and proximal tibial bone fragment removed utilizing straight osteotome, electrocautery and Fbaián. Next, the distal femur intramedullary canal was accessed utilizing the step drill. The intramedullary distal femur cutting guide was placed into the canal and pinned into place. The distal femur was cut on the +0 5 degree setting. Next the cutting guide was removed and the femur was sized. Care was taken to ensure appropriate client services director all rotation and 3 degree holes were drilled. A size 10 4-in-1 cutting block was placed on the distal end of the femur and secured into place with two short headed screws. Two bent Hohmann retractors were placed to protect the medial and lateral collateral ligaments. The oscillating saw was used to cut anterior, posterior, anterior chamfer and posterior chamfer. The four and one cutting block was removed and bone fragments excised. Laminar senior user experience architect was placed laterally and the ACL and PCL were removed followed by the medial meniscus and posterior medial osteophytes. Aquamantys was utilized for any posterior medial bleeders and Orthomix injected into the posterior medial capsule. A laminar senior user experience architect was then placed in the medial compartment and the lateral meniscus and posterior osteophytes were removed. Aquamantys was utilized for any posterior lateral bleeders and Orthomix injected into the posterior lateral capsule. Next, drop daina and spacer block were placed with the leg in flexion and extension to assess alignment and flexion/extension gaps. Next, the proximal tibia was assessed and two bent Hohmans were placed medial and lateral to aid in visualization. The appropriate tibia size and rotation was selected and a size F tibial plate was pinned into place with appropriate rotation. Preparation of the tibia was completed utilizing the matching tibial drill and broach. I then turned my attention back to the distal femur in a trial femoral component was impacted into place. Appropriate femoral width was assessed and selected. Next the femur PS box cut guide was placed and cut made with the reciprocal saw and the PS box provisional placed. A trial size 10 PS tibia articular tray was placed and varus-valgus balance assessed in 0 degrees of extension and 30, 60 and 90 degrees of flexion. A final tibial articular surface size 12 PS was chosen. Assess was gained to the patella and caliper utilized to measure width. The patella reamer was utilized and remaining bone removed with oscillating saw. A size 32 mm patella button was selected and the patella pegs drilled. Trial patella button was placed and tracking was assessed. The knee was found to be well balanced, well aligned with excellent patella tracking. The trials were removed and final components were obtained and assembled. The knee was irrigated copiously with sterile saline solution mixed with bacitracin. Access to the proximal tibia was once again obtained utilizing to the Hohmans and the proximal tibia and distal femur were dried with lap sponges. The final components were cemented into place and all excess cement was removed. A trial tibial articular surface was placed while cemented hardened. Knee stability was once again assessed and the final component inserted. A Betadine soak was performed. After 3 minutes, the hip was once more irrigated with copious sterile saline solution with bacitracin. The knee was injected with the remaining Orthomix which includes a combination of Ropivicaine 0.5% 150mg, Bupivicaine 0.5%/Epinephrine 1:200,000 30ml, Toradol 30mg, Dexamethasone 4mg, Ketamine 10mg, Clonidine 100mcg and NSS 30ml solution. The capsulotomy was closed with #1 Vicryl followed by subcutaneous closure with 2-0 Vicryl suture and a 3-0 V-lock suture. Skin closure was performed using Prineo dressing followed by Alexis, 4 x 4s and adali wrap. Tourniquet was deflated at 88 minutes. The patient tolerated the procedure well and was taken to the PACU in stable condition. Due to the complex nature of the procedure, the entire surgery was performed with the operational assistance of Aldo Lobo PA-C. The hotel administrative assistant, under direct supervision, was involved in the actual performance of all aspects of the surgical procedure including patient positioning, hemostasis, tissue retraction, instrument management and wound closure. I attest to the content of the Intraoperative Record and any orders documented therein. Any exceptions are noted below.
--- NOTE | 2019-03-30 13:08 | XRay Report ---
TWO VIEWS LEFT KNEE CLINICAL HISTORY: Postoperative examination. FINDINGS: AP and crosstable lateral portable views of the left knee are obtained. A left knee arthrop lasty is in near anatomic alignment. There has been undersurface remodeling of the patella. No acute fracture is seen. Soft tissue edema and subcutaneous gas are expected postoperative findings. IMPRESSION: Expected postoperative changes status post left knee arthroplasty. No acute fracture is s een. Electronically signed by: Stephon Torres M.D. 03/30/2019 1:07 PM
--- NOTE | 2019-03-30 13:13 | Anesthesiology Progress Note ---
Date of Service March 30, 2019 Anesthesia Post Procedure Vital Signs Vital Signs: Temp Pulse Pulse Resp BP BP Pulse Ox 03/30/19 13:05 36.7 C 84 13 135/79 96 03/30/19 12:55 88 20 125/88 93 03/30/19 12:45 87 16 136/76 95 03/30/19 12:39 37.5 C 88 22 113/70 96 03/30/19 09:02 36.9 C 80 20 152/95 H 99 Pain Intensity Left Knee: Pain Intensity: 0 Transfer of Care Handoff Completed per policy Notes Mental Status: alert / awake / arousable Patient Amnestic to Procedure: Yes Nausea / Vomiting: adequately controlled Pain: adequately controlled Airway Patency, RR, SpO2: stable & adequate BP & HR: stable & adequate Hydration State: stable & adequate Anesthetic Complications: no major complications apparent and Pt Satisfied with anesthetic care
[2019-03-30] MEDS ORDERED: ONDANSETRON INJ 2 MG/ML 2 ML VIAL IV PRN (13:31)
[2019-03-30] MEDS ORDERED: HYDROmorphone INJ 0.5 MG/0.5 ML SYR IV PRN (13:31)
[2019-03-30] MEDS ORDERED: BISACODYL 10 MG SUPP PR PRN (13:31)
[2019-03-30] MEDS ORDERED: METOCLOPRAMIDE HCL INJ 5 MG/ML 2 ML VIAL IV PRN (13:31)
[2019-03-30] MEDS ORDERED: MAGNESIUM HYDROXIDE SUSP 30 ML UDC PO PRN (13:31)
[2019-03-30] MEDS ORDERED: NALOXONE HCL 0.4 MG/1 ML VIAL/CARP IV PRN (13:31)
[2019-03-30] MEDS ORDERED: OXYCODONE HCL IR 5 MG TAB (IMMEDIATE RELEASE) PO PRN (13:31)
[2019-03-30] MEDS: KETOROLAC TROMETHAMINE 15 MG/ML VIAL IV SCH ×2 (13:49→20:39)
[2019-03-30] MEDS: SODIUM CHLORIDE 0.9% 1000ML 1,000 ML IV SCH ×2 (13:49→20:41)
[2019-03-30] MEDS: ACETAMINOPHEN 500 MG TAB PO SCH (16:45)
--- NOTE | 2019-03-30 17:06 | Orthopedic Progress Note ---
Date of Service March 30, 2019 Assessment & Plan (1) Degenerative joint disease of left knee: s/p L TKA -clinda x 24 -DVT ppx: SCDs, TEDs, ASA 81mg BID -WBAT LLE -PT/OT -PO XR demonstrates a well aligned well fixed orthopedic prothesis without fracture/dislocation -am labs -DC planning Subjective Post Operative Progress Note Patient seen sitting up in bed, comfortable, denies complaints, pain well controlled, no acute issues. Review of Systems Review of Systems: All systems reviewed & are unremarkable except as noted in HPI & below Constitutional: as per Subjective / HPI Physical Exam Physical Exam: LLE NVSI +EHL/FHL/TA/GS SILT grossly, +2 DP pulse, compartments soft NT, dressing cdi. Constitutional: WD/WN, vitals as above Results & Data Vital Signs (Past 12 Hours) Vital Signs Temp Pulse Pulse Resp BP BP Pulse Ox 03/30/19 16:20 36.6 C 88 16 114/71 95 03/30/19 15:20 36.6 C 94 H 16 121/71 95 03/30/19 14:15 96 H 16 133/83 95 03/30/19 13:48 84 18 125/82 95 03/30/19 13:20 36.6 C 79 18 133/84 93 03/30/19 13:05 36.7 C 84 13 135/79 96 03/30/19 12:55 88 20 125/88 93 03/30/19 12:45 87 16 136/76 95 03/30/19 12:39 37.5 C 88 22 113/70 96 03/30/19 09:02 36.9 C 80 20 152/95 H 99
[2019-03-30] MEDS: CLINDAMYCIN 600 MG in DEXTROSE 5% 50 ML IV SCH (19:52)
[2019-03-30] MEDS: DOCUSATE SODIUM 100 MG CAP PO SCH (20:39)
[2019-03-30] MEDS ORDERED: SENNA 8.6 MG TAB PO SCH (21:00)
[2019-03-31] MEDS: CLINDAMYCIN 600 MG in DEXTROSE 5% 50 ML IV SCH (02:44)
[2019-03-31] MEDS: KETOROLAC TROMETHAMINE 15 MG/ML VIAL IV SCH ×2 (02:44→08:37)
[2019-03-31] MEDS: ACETAMINOPHEN 500 MG TAB PO SCH (05:46)
[2019-03-31 06:02] LABS: Hematocrit (blood only) 31.6 % (37-47); Hemoglobin 10.8 g/dL (12.0-16.0); Mean Corpuscular Hgb Conc 34.2 g/dL (32-36); Mean Corpuscular Volume 84.7 fL (80-100); Mean Platelet Volume 9.9 fL (7.4-10.4); Platelet Count 252 K/uL (130-400); RDW Coefficient of Variation 13.7 % (11.5-14.5); RDW Standard Deviation 42.9 fL (36.4-46.3); Red Blood Count 3.73 M/uL (4.2-5.4); White Blood Count 16.26 K/uL (4.8-10.8)
[2019-03-31] MEDS ORDERED: LEVOTHYROXINE SODIUM 75 MCG TABLET PO SCH (06:30)
[2019-03-31 06:43] LABS: BUN Creatinine Ratio 17.5 (10-20); Calcium 8.2 mg/dl (8.5-10.1); Creatinine Clr Calc Pharmacy 83.1 ml/min; Est GFR (African American) 72.9; Est GFR (Non-African American) 62.9; Potassium 3.8 mmol/L (3.5-5.1)
--- NOTE | 2019-03-31 07:54 | Orthopedic Progress Note ---
Date of Service March 31, 2019 Assessment & Plan (1) Degenerative joint disease of left knee: s/p L TKA PO#1 -clinda x 24 -DVT ppx: SCDs, TEDs, ASA 81mg BID -WBAT LLE -PT/OT -PO XR demonstrates a well aligned well fixed orthopedic prothesis without fracture/dislocation -am labs - hgb 10.8 -DC planning home with HH Subjective Post Operative Progress Note Patient seen sitting up in bed, comfortable, denies complaints, pain well controlled, no acute issues. Review of Systems Review of Systems: All systems reviewed & are unremarkable except as noted in HPI & below Constitutional: as per Subjective / HPI Physical Exam Physical Exam: LLE NVSI +EHL/FHL/TA/GS SILT grossly, +2 DP pulse, compartments soft NT, dressing cdi. Constitutional: WD/WN, vitals as above Results & Data Vital Signs (Past 12 Hours) Vital Signs Temp Pulse Resp BP Pulse Ox 03/31/19 02:57 36.7 C 68 16 117/74 96 03/30/19 23:00 36.6 C 82 16 109/64 96
[2019-03-31] MEDS: DOCUSATE SODIUM 100 MG CAP PO SCH (08:38)
[2019-03-31 08:43] VITALS: BP 126/80; PULSE 65; TEMP 97.7; O2SAT 98
[2019-03-31] MEDS ORDERED: ASPIRIN 81 MG ECTAB PO SCH (09:00)
[2019-03-31] MEDS ORDERED: hydroCHLOROthiazide 25 MG TAB PO SCH (09:00)
[2019-03-31] MEDS ORDERED: MULTIVITAMIN TAB PO SCH (09:00)
[2019-03-31] MEDS ORDERED: CeleBREX 200 MG CAP PO SCH (21:00)
--- NOTE | 2019-03-31 21:32 | Discharge Summary ---
Date of Service March 31, 2019 Admission HPI Per Admitting Provider The patient is a 63 year old female who presents with complaints of severe left knee pain and DJD. The patient has failed outpatient conservative treatments to this point which included NSAIDs, IA corticosteroid inj, CARNES inj, home exercise, walking program. The patient's pain and limited function have progressed to the point where they severely hinder their activities of daily living and they no longer tolerate exercise programs. They are requesting to proceed with total knee replacement surgery. Principal Diagnosis Left total knee replacement Discharge Exam LLE NVSI +EHL/FHL/TA/GS SILT grossly, +2 DP pulse, compartments soft NT, dressing cdi. Constitutional WD/WN, vitals as above Discharge Data Allergies Allergy/AdvReac Type Severity Reaction Status Date / Time blue dye AdvReac Intermediate Tachycardia Verified 03/30/19 08:51 adhesive tape AdvReac Mild SKIN Verified 03/30/19 08:51 BREAKS OUT Penicillins AdvReac Mild yeast Verified 03/30/19 08:51 infection Consultations 03/30/19 13:31 Consult Case Management - Discharge Planning Routine Procedures Performed Operation Date: 03/30/19 11:20 Actual Procedures p Left Total Knee Arthroplasty(Left) - Brien Beltran DO Ordered Studies 03/30/19 05:00 US - OR guided needle placemen Routine Hospital Course (1) Degenerative joint disease of left knee: The patient is a 63 -year-old female who presents with long standing history of severe left knee DJD and failed outpatient conservative treatments including NSAIDs, bracing, injections and home walking/exercise program. The patient's symptoms have progressed to the point where it has been difficult to perform even normal activities of daily living. I indicated the patient for a left total knee arthroplasty, the risks, benefits and complications of the procedure include but not limited to infection, bleeding, damage to bone, nerves, vessels, surrounding soft tissue, may develop blood clots, loss of function, leg length discrepancy, dislocation, failure of the components, loosening of the components, the need for additional surgery and . The patient wished to proceed with surgery at this time and informed consent was obtained. Hospital Course: On 03/30/19, the patient was taken to the operating room, adequate anesthesia administered and underwent a left total knee arthroplasty. The patient tolerated the procedure well and was taken to the PACU in stable condition. Post-operatively the patient was started on a DVT ppx medication and given appr opriate IV antibiotics. Consults were placed to physical therapy, occupational therapy and case management. On POD#1, the patient did well overnight and their pain was well controlled. Labs were drawn and the Hgb was 10.8. The patient progressed well with PT. Dressings were changed at this time and the incision was clean, dry and intact. The patients hospital stay was relatively uneventful and they were deemed stable by the orthopedic team and consultants to be discharged home with HH on 03/31/19. Discharge Instructions: Upon discharge the patient may weight bear as tolerates through their operative extremity. They were instructed to keep the incision clean and dry at all times. The patient may shower but should not submerge the incision, avoid bathing, pools and hot tubes. The patient was given a script for pain medication and should take as instructed. The patient was given a script for DVT ppx 81mg BID and should take as directed. The patient was instructed to not drive or travel for long distances until cleared to do so. If the patient develops any symptoms of fevers, chills, nausea, vomiting, increased redness, swelling, pain or drainage from the surgical site, they should notify the office and/or proceed to the nearest emergency room. The patient should follow up in 10-14 days after surgery for their routine post-operative follow-up appointment and should call the office to confirm the date and time. s/p L TKA PO#1 -clinda x 24 -DVT ppx: SCDs, TEDs, ASA 81mg BID -WBAT LLE -PT/OT -PO XR demonstrates a well aligned well fixed orthopedic prothesis without fracture/dislocation -am labs - hgb 10.8 -DC planning home with HH Total Time Total Time Spent Total Time Spent (In Minutes): 30 minutes Total Time Includes: Examination of the Patient, Discharge Planning, Medication Reconciliation and Communication With Other Providers Discharge Plan Discharge Items Patient Disposition: Home - Home Health Services Reason For Visit: left Knee Osteoarthritis Discharge Diagnosis: Left total knee replacement Condition: Good Discharge Goals: Decrease discomfort, Improve function, Increase independence and Therapeutic intervention Activity: Per 'Additional Instructions' section Lifting: Wait until after follow-up appointment Bathing Comment: No bathing, pools or hot tubs Sexual Activity: Wait until after follow-up appointment Exercise/Sports: Wait until after follow-up appointment Driving/Machine Use Comment: No driving till cleared by your surgeon Weightbearing: Left weightbearing Non-emergency contact: Primary Care Provider and Surgeon Call non-emergency contact if: you have any medication questions, your symptoms worsen, your pain is not controlled, your pain is worsening, your pain is unusual for you, your pain is concerning for you, you have a fever, your temperature is above 101, your wound has increased redness, your wound has increased drainage and your wound pain has increased Follow-up/Referrals: Armando Tejeda D.O. [Primary Care Provider] - Diet: Regular Addtl Provider Instructions: ACTIVITY RECOMMENDATIONS: SELF CARE INSTRUCTIONS AFTER TOTAL KNEE REPLACEMENT A. You may need to continue a physical therapy program after discharge from the hospital. There are several options available to you. Your doctor will assist you in selecting the best one for you. 1. An out-patient facility 2 to 3 times a week for therapy or home therapy. 2. Continue working on all exercises taught to you in the hospital. Your goals should be to increase bending of your knee to 90 degrees and beyond and to fully straighten your knee. B. You may progress at your own pace from walking with a walker or crutches to a cane; then to no assistive devices. C. Make walking a part of your daily routine. Be up as much as comfortable with rest periods throughout the day. Rest with leg elevation is very important. Use the ice wrap frequently for the first 3-4 weeks. D. There are no restrictions on activities. You may ride in a car, shop, participate in physical chemist and all social activities. E. Wear the long elastic stockings (STAS hose) 20 hours a day for 2 weeks after surgery. They can be removed several times a day for laundering and for a bath. F. You may shower, no tub baths until cleared by your doctor. SPECIAL CARE INSTRUCTIONS: VERY IMPORTANT TO READ AND REVIEW A. There are a few signs you need to watch for after you are home. Call [facility] if you notice any of the followin. Increased severe knee pain. Some pain is expected especially when you exercise. 2. Increased swelling in your leg or knee; pain or swelling of the calf muscle in either lower leg. 3. Any fluid drainage from the incision. 4. Shortness of breath or chest pain. B. Please call [facility] at if you have any concerns or questions about your operation or recovery. The doctor or his nurse will return your call promptly. C. You must take antibiotics before dental work, bladder, bowel or other surgery. Your doctor will provide you with a permanent care to carry describing this precaution. IMPORTANT: * REMEMBER TO TAKE ASPIRIN 81MG, TWICE A DAY FOR 4 WEEKS UNLESS OTHERWISE DIRECTED. THIS IS YOUR BLOOD THINNER. * HIGH RISK PATIENTS MAY BE PRESCRIBED A STRONGER BLOOD THINNER. THIS WILL BE PROVIDED AT DISCHARGE. * CALL IF INCREASED PAIN, REDNESS, DRAINAGE OR FEVER GREATER THAT 101. * WEAR STAS HOSE 20 HOURS PER DAY FOR 2 WEEKS. *DERMABOND Prineo- This is a mesh tape dressing that is covered with glue. It should remain in place until the incision is properly healed, usually 10-14 days. This dressing is designed to naturally slough off. You may trim the excess mesh tape as it peels off. Incision may be briefly wet in a shower. Dry immediately by blotting with a clean, dry towel. Do not bath or swim until instructed by your doctor. Do not scratch, rub, or pick at the dressing. Do not apply any topical ointments or lotions until dressing is completely removed and/or instructed by your doctor. There may be a small piece of suture material at one end of your incision. Do not pull or trim this. If it is bothersome or catching on clothing, you may cover it with a band-aid. IF INCISION IS LEAKING THROUGH DRESSING, CALL THE OFFICE . FOLLOW UP VISIT: If appointment is not already scheduled: Please call [facility] to make a follow-up appointment for 2 weeks after your surgery at . Prescriptions: New celecoxib [Celebrex] 200 mg Capsule 200 mg PO BID PRN (Reason: pain and inflammation) Qty: 28 RF: 0 aspirin [Ecotrin Low Strength] 81 mg Tablet,Delayed Release (Dr/Ec) 81 mg PO BID Qty: 56 RF: 0 acetaminophen [Tylenol Extra Strength] 500 mg Tablet 1,000 mg PO Q8 PRN (Reason: Pain and/or fever) Qty: 90 RF: 0 oxycodone 5 mg Tablet 5 mg PO Q6H MDD 6 tabs PRN (Reason: pain) Qty: 30 RF: 0 sennosides [Senokot] 8.6 mg Tablet 17.2 mg PO HS PRN (Reason: constipatoin) Qty: 28 RF: 0 Continued levothyroxine 75 mcg Tablet 75 mcg PO QAM RF: 0 esomeprazole magnesium [Nexium] 40 mg Capsule,Delayed Release(Dr/Ec) 40 mg PO QAM RF: 0 hydrochlorothiazide 25 mg Tablet 25 mg PO QAM RF: 0 ergocalciferol (vitamin D2) [Vitamin D2] 50,000 unit Capsule 50,000 unit PO WK RF: 0 ascorbic acid (vitamin C) [Vitamin C] 1,000 mg Tablet 1,000 mg PO QAM RF: 0 Multi-Vitamin HP/Minerals Capsule 1 cap PO BID RF: 0 Discontinued ibuprofen 200 mg Tablet 200 mg PO QAM PRN (Reason: Pain) RF: 0 Stand-Alone Forms: My [facility], Opioid Pain Management Krames/Other Patient Handouts: Prediabetes, Diabetes Resources, Diabetes Healthy Meals, Diabetes Carbs, Diabetes Exercise Benefits, Diabetes Activity Tips, Diabetes Manage A1C Test Discharge Orders: Discharge Order (Routine); Ordered 03/31/19 Ordered By: Brien Beltran Admission Data Admit Date/Time: 03/30/19 12:43 Attending Provider: Brien Beltran Admit Provider: Brien Beltran Primary Care Provider: Armando Tejeda Service: Surgical Services Other Interventions: Discharge Summary Assessment (RN) Last Done: 03/31/19 11:55 DC Date/Time DO NOT enter until pt leaves facility: 03/31/19 13:58
== END 2019-03-31 13:58 | disposition home health service (06) | DRG 470 ==
LOC: ASU 08:20 → 3E 12:43

== ENCOUNTER 2019-06-22 06:20 | Inpatient (IN) ==
[2019-06-15 15:02] LABS: Appearance Urine Clear (Clear); Basophils # (auto) 0.04 K/uL (0-0.2); Basophils % (auto) 0.5 %; Bilirubin Urine Negative (Negative); Blood Urine Negative (Negative); Color Urine Yellow; Eosinophils # (auto) 0.31 K/uL (0-0.5); Eosinophils % (auto) 4.2 %; Glucose Urine UA Negative (Negative); Hematocrit (blood only) 38.6 % (37-47); Hemoglobin 13.2 g/dL (12.0-16.0); Immature Granulocytes # (auto) 0.02 K/uL (0.00-0.02); Immature Granulocytes % (auto) 0.3 %; Ketones Urine Negative (Negative); Leukocyte Esterase Urine Negative (Negative); Lymphocytes # (auto) 2.55 K/uL (1.2-3.4); Lymphocytes % (auto) 34.7 %; Mean Corpuscular Hemoglobin 29.9 pg (25-34); Mean Corpuscular Hgb Conc 34.2 g/dL (32-36); Mean Corpuscular Volume 87.3 fL (80-100); Mean Platelet Volume 10.3 fL (7.4-10.4); Monocytes # (auto) 0.47 K/uL (0.11-0.59); Monocytes % (auto) 6.4 %; Neutrophils # (auto) 3.95 K/uL (1.4-6.5); Neutrophils % (auto) 53.9 %; Nitrite Urine Negative (Negative); Platelet Count 307 K/uL (130-400); Protein Urine Negative (Negative); RDW Coefficient of Variation 13.8 % (11.5-14.5); RDW Standard Deviation 44.3 fL (36.4-46.3); Red Blood Count 4.42 M/uL (4.2-5.4); Specific Gravity Urine 1.019 (1.000-1.030); Urobilinogen Urine Negative (Negative); White Blood Count 7.34 K/uL (4.8-10.8); pH Urine 5.5 (4.5-7.5)
[2019-06-15 15:12] LABS: INR 1.1 (0.9-1.1); Prothrombin Time 10.8 Seconds (9.0-12.0)
[2019-06-16 05:38] LABS: Estimated Average Glucose 111 mg/dl; Hemoglobin A1C 5.5 % (4.5-5.6)
--- NOTE | 2019-06-17 10:56 | Anesthesiology Consultation ---
Date of Service June 17, 2019 Assessment & Plan (1) Encounter for pre-operative examination: Chart Review Chart Review: Acceptable Risk for Surgery and Patient NOT seen in Pre Admission Testing Consults Requested none History Surgery Operation Date: 06/22/19 09:30 Proposed Procedures p Left Knee Incision and Drainage, Poly Swap, Repair Arthrotomy, Possible Quad Tendon Repair - Brien Beltran DO Allergies Allergy/AdvReac Type Severity Reaction Status Date / Time blue dye AdvReac Intermediate Tachycardia Verified 05/16/19 23:10 adhesive tape AdvReac Mild SKIN Verified 05/16/19 23:10 BREAKS OUT Penicillins AdvReac Mild yeast Verified 05/16/19 23:10 infection Medications Home Medications Medication Instructions Recorded Confirmed Last Taken ergocalciferol (vitamin D2) 50,000 unit PO WK 10/27/18 05/16/19 05/10/19 [Vitamin D2] esomeprazole magnesium [Nexium] 40 mg PO QAM 10/27/18 05/16/19 05/16/19 hydrochlorothiazide 25 mg PO QAM 10/27/18 05/16/19 05/16/19 levothyroxine 75 mcg PO QAM 10/27/18 05/16/19 05/16/19 ascorbic acid (vitamin C) [Vitamin 1,000 mg PO QAM 03/03/19 05/16/19 05/16/19 C] acetaminophen [Tylenol Extra 2,000 mg PO Q8 PRN 05/16/19 05/16/19 05/16/19 20:00 Strength] oxycodone [Roxicodone] 5 mg PO Q8H PRN #9 tab 05/17/19 Unknown Past Medical History Medical History GERD (gastroesophageal reflux disease) Hypertension Hypothyroidism Obesity Osteoarthritis Premature ventricular contractions DETECTED WHILE BEING MONITORED FOR COLONOSCOPY 2018-NO ISSUES SINCE PER PT Past Family History Family History Father Family history of diabetes mellitus Sister Family history of diabetes mellitus Past Surgical History Surgical History H/O eye surgery LEFT ORBITAL REPAIR H/O foot surgery RT SIDE/BUNIONECTOMY AND HAMMER TOE CORRECTION History of colonoscopy History of dilatation and curettage History of esophagogastroduodenoscopy (EGD) History of hysterectomy History of tooth extraction History of total knee replacement RIGHT -- 11/26/18, SAB + PNB both successful x 1 attempt Left: 03/30/2019: SAB with PNB and MAC. No issues. Nausea and vomiting after administration of anesthetic agent ALSO HAS BEEN SLOW TO WAKE UP IN THE PAST Social History Smoking Status: Never smoker Hx Alcohol Use: No Hx Substance Use: No substance use type: does not use Testing Laboratory Results 06/15/19 12:41 PT 10.8 Seconds (9.0-12.0) 06/15/19 12:41 INR 1.1 (0.9-1.1) 06/15/19 12:41 Hemoglobin A1c 5.5 % (4.5-5.6) 06/15/19 12:41 Urine Color Yellow 06/15/19 12:41 Urine Appearance Clear (Clear) 06/15/19 12:41 Urine pH 5.5 (4.5-7.5) 06/15/19 12:41 Ur Specific [place] 1.019 (1.000-1.030) 06/15/19 12:41 Urine Protein Negative (Negative) 06/15/19 12:41 Urine Glucose (UA) Negative (Negative) 06/15/19 12:41 Urine Ketones Negative (Negative) 06/15/19 12:41 Urine Nitrite Negative (Negative) 06/15/19 12:41 Ur Leukocyte Esterase Negative (Negative) 06/15/19 12:41 Electrocardiogram Electrocardiogram Date: 10/30/18 Findings: + NSR @ (62) Frequent PVCs. Chest X-Ray Chest X-Ray Date: 10/30/18 Findings: + NAD
--- NOTE | 2019-06-21 10:54 | History & Physical Report ---
Date of Service June 21, 2019 Assessment & Plan (1) Status post right knee replacement: traumatic partial rupture quad tendon, medial arthrotomy I have indicated the patient for I+D, poly swap left total knee replacement, exploration of the quad tendon and arthrotomy with primary repair. The risks, benefits and complications of surgery were explained to the patient which include but not limited to infection, acute blood loss, DVT/PE, injury to nerves, vessels, bone, soft tissue, arthrofibrosis, chronic pain, failure of the prosthesis, knee dislocation, leg length discrepancy, need for additional surgery, cardiac and pulmonary events and . The patient wished to proceed with surgery and informed consent was obtained at this time. We will plan for ASA BID post-operatively for DVT prophylaxis. Upon discharge the patient will be discharged home with home health services. Appropriate clearances by PCP were obtained. History of Present Illness Chief Complaint: Traumatic partial quad tendon rupture s/p left total knee arthroplasty Primary Care Provider: Armando Tejeda The patient is a 63 year old female who underwent left total knee arthroplasty on 03/30/19. The patient sustained a fall from standing height on 05/16/19 and was seen at [facility] ED for distal wound dehiscence which was closed by the ED staff at the direction of orthopedic surgeon small business consultant and subsequently seen in the office and found to have extensor lag and appreciable defect of the proximal medial arthrotomy which was confirmed by MRI for a partial rupture of the medial quad tendon. I have indicated the patient for I+D of the left total knee, poly swap, exploration of the arthrotomy/quad tendon with primary repair. Allergies Allergy/AdvReac Type Severity Reaction Status Date / Time blue dye AdvReac Intermediate Tachycardia Verified 06/22/19 06:53 adhesive tape AdvReac Mild SKIN Verified 06/22/19 06:53 BREAKS OUT Penicillins AdvReac Mild yeast Verified 06/22/19 06:53 infection & upset stomach Home Medications Home Medications Medication Instructions Recorded Confirmed Type ergocalciferol (vitamin D2) 50,000 unit PO WK 10/27/18 06/17/19 History [Vitamin D2] esomeprazole magnesium [Nexium] 40 mg PO QAM 10/27/18 06/17/19 History hydrochlorothiazide 25 mg PO QAM 10/27/18 06/17/19 History levothyroxine [Synthroid] 75 mcg PO QAM 10/27/18 06/17/19 History ascorbic acid (vitamin C) [Vitamin 1,000 mg PO QAM 03/03/19 06/17/19 History C] Past Med/Surg History Medical History GERD (gastroesophageal reflux disease) Hypertension Hypothyroidism Obesity Osteoarthritis Premature ventricular contractions DETECTED WHILE BEING MONITORED FOR COLONOSCOPY 2017-NO ISSUES SINCE PER PT Surgical History H/O eye surgery LEFT ORBITAL REPAIR H/O foot surgery RT SIDE/BUNIONECTOMY AND HAMMER TOE CORRECTION History of colonoscopy History of dilatation and curettage History of esophagogastroduodenoscopy (EGD) History of hysterectomy History of left knee replacement Mar 2019 History of tooth extraction History of total knee replacement RIGHT -- 11/26/18, SAB + PNB both successful x 1 attempt Left: 03/30/2019: SAB with PNB and MAC. No issues. Nausea and vomiting after administration of anesthetic agent ALSO HAS BEEN SLOW TO WAKE UP IN THE PAST Family History Father Family history of diabetes mellitus Sister Family history of diabetes mellitus Social History Preferred Language: Mongolian Communication Ability: Effective Hides Inspector Required: No Beliefs That Will Affect Care: None marital status: Current Living Situation: Spouse Other Information That Helps Us Care for You: No Feels Safe at Home: Yes Safety Concerns: Feels Safe At This Time Smoking Status: Never smoker Do You Dip or Chew Tobacco: No ; Second Hand Exposure: No ; Tobacco Cessation Education Requested by Patient: No Hx Alcohol Use: No Hx Substance Use: No Review of Systems Review of Systems: All systems reviewed & are unremarkable except as noted in HPI & below Constitutional: as per Subjective / HPI Physical Exam Physical Exam: LLE NVSI +EHL/FHL/TA/GS SILT grossly, +2 DP pulse, compartments soft NT, incision cdi, no signs of infection, extensor lag 10-20 degrees, weakness to quad tendon with muscle strength testing. Palpable defect proximal medial arthrotomy. Constitutional: WD/WN, vitals as above Eyes: PERRL, conjunctivae normal, anicteric sclerae ENMT: external ear and nose normal, oropharynx normal Neck: trachea midline, no thyromegaly Respiratory: normal respiratory effort, lungs clear to auscultation Cardiovascular: RRR, no murmur, no edema Gastrointestinal (Abdomen): normal bowel sounds, soft, nontender, no hepatosplenomegaly Musculoskeletal: no cyanosis or clubbing, extremities motor strength 5/5 Skin: no rashes, warm and dry Neurologic: patellar DTR's 2+ bilat, sensation intact Psychiatric: A+Ox3, euthymic affect Lymphatic: no cervical or axillary lymphadenopathy Results & Data Diagnostic Findings XRs of the left knee demonstrates a well aligned well fixed total knee prothesis without fracture/dislocation. MRI left knee + for partial rupture of the medial quad tendon/arthrotomy.
[~2019-06-22 06:20] MED LIST changes: -BUPIVACAINE 0.5 % 5 MG/1 ML PF 10ML VIAL ONE; +LR 15ML/HR IV SCH; -LR 500ML BOLUS, THEN 15ML/HR IV SCH; -MIDAZOLAM HCL 1 MG/ML 2ML VIAL ONE; -ROPIVACAINE 0.5% 5 MG/ML 30 ML VIAL ONE; -ROPIVACAINE 0.5% HCL/PF 150 MG, BUPIVACAINE 0.5% MPF 30 ML, EPINEPHrine 30MG/30ML (OR U... INSTIL SCH; -TRANEXAMIC ACID 1,000 MG **IV Intra-op IV SCH; -fentaNYL citrate 100 MCG/2 ML VIAL ONE
[2019-06-22] MEDS ORDERED: TRANEXAMIC ACID 1,000 MG **IV Intra-op IV SCH (06:30)
[2019-06-22] MEDS ORDERED: BUPIVACAINE/EPINEPHRINE 0.25% 1:200,000 30 ML VIAL ONE (06:31)
[2019-06-22] MEDS ORDERED: BUPIVACAINE 0.5 % 5 MG/1 ML PF 10ML VIAL ONE (06:31)
[2019-06-22] MEDS ORDERED: MIDAZOLAM HCL 1 MG/ML 2ML VIAL ONE (06:51)
--- NOTE | 2019-06-22 06:57 | History & Physical Bridge Note ---
Date of Service June 22, 2019 History & Physical Bridge Note I have examined the patient, reviewed the History & Physical and in the interval since the performance of the History & Physical I have noted the following changes of clinical significance: no changes noted
[2019-06-22 07:54] LABS: BUN Creatinine Ratio 13.3 (10-20); Calcium 9.4 mg/dl (8.5-10.1); Creatinine Clr Calc Pharmacy 60.5 ml/min; Est GFR (African American) 50.6; Est GFR (Non-African American) 43.6; Potassium 3.4 mmol/L (3.5-5.1)
[2019-06-22] MEDS ORDERED: fentaNYL citrate 100 MCG/2 ML VIAL IV PRN (08:03)
[2019-06-22] MEDS ORDERED: ONDANSETRON INJ 2 MG/ML 2 ML VIAL IV PRN ×2 (08:03→12:51)
[2019-06-22] MEDS ORDERED: ATROPINE SULFATE 0.1 MG/ML 10ML SYR IV PRN (08:03)
[2019-06-22] MEDS ORDERED: ePHEDrine sulfate 50 MG/ML AMP IV PRN (08:03)
[2019-06-22] MEDS ORDERED: fentaNYL citrate 100 MCG/2 ML VIAL ONE (08:30)
[2019-06-22] MEDS ORDERED: BACITRACIN INJ 50,000 UNIT VIAL ONE (09:33)
[2019-06-22] MEDS ORDERED: PROPOFOL IV EMULSION 10 MG/ML 20 ML VIAL IV ONE (10:32)
[2019-06-22] MEDS ORDERED: LIDOCAINE HCL 2% 2 ML VIAL/AMP(20MG/ML) INFIL ONE (10:32)
[2019-06-22] MEDS ORDERED: BUPIVACAINE 0.5 % 5 MG/1 ML MPF 30ML VIAL ONE (10:56)
[2019-06-22] MEDS ORDERED: EPINEPHrine INJ 1 MG/ML AMP ONE (10:56)
--- NOTE | 2019-06-22 11:21 | Post Operative Brief Note ---
Immediate Post Op Note v1 Date of Surgery June 22, 2019 Pre & Post Diagnosis Operation Date: 06/22/19 09:30 Pre-Op Diagnosis: Pain D/T Internal Orthopedic Prosthetic Devices Post-Op Diagnosis: Pain D/T Internal Orthopedic Prosthetic Devices I identified the patient and participated in the time-out.: Yes Procedure Operation Date: 06/22/19 09:30 Actual Procedures p Left Knee Incision and Drainage, Poly Swap, Primary Quad Tendon Repair(Left) - Brien Beltran DO Surgeon Brien Beltran DO Composite Engineer Aldo Lobo Estimated Blood Loss 75 Findings Consistent with Post-Op Diagnosis Fluids 1500 cc LR Specimens none Drains Hemovac Drain Anesthesia Type Spinal MAC Complications none Disposition Disposition: Recovery Room Overlapping Procedure I was present for: the critical portions of procedure. I was immediately available: during the entire case. Back up surgeon: was not required during procedure.
--- NOTE | 2019-06-22 11:44 | Operative Report ---
Post Operative Report Pre & Post Diagnosis Operation Date: 06/22/19 09:30 Pre-Op Diagnosis: Pain D/T Internal Orthopedic Prosthetic Devices Post-Op Diagnosis: Pain D/T Internal Orthopedic Prosthetic Devices I identified the patient and participated in the time-out.: Yes Procedure Operation Date: 06/22/19 09:30 Actual Procedures p Left Knee Incision and Drainage, Poly Swap, Primary Quad Tendon Repair(Left) - Brien Beltran DO Surgeon Brien Beltran DO Manager In Home Aldo Lobo Estimated Blood Loss 75 Findings Consistent with Post-Op Diagnosis Fluids 1500 cc LR Specimens none Drains HMV superficial to fascia Anesthesia Type Spinal MAC Complications none Disposition Disposition: Recovery Room Indications The patient is a 63 year old female who underwent left total knee arthroplasty on 03/30/19. The patient sustained a fall from standing height on 05/16/19 and was seen at [facility] ED for distal wound dehiscence which was closed by the ED staff at the direction of orthopedic surgeon fiberglass insulation installer and subsequently seen in the office and found to have extensor lag and appreciable defect of the proximal medial arthrotomy which was confirmed by MRI for a partial rupture of the medial quad tendon. I have indicated the patient for I+D of the left total knee, poly swap, exploration of the arthrotomy/quad tendon with primary repair. I have indicated the patient for I+D, poly swap left total knee replacement, exploration of the quad tendon and arthrotomy with primary repair. The risks, benefits and complications of surgery were explained to the patient which include but not limited to infection, acute blood loss, DVT/PE, injury to nerves, vessels, bone, soft tissue, arthrofibrosis, chronic pain, failure of the prosthesis, knee dislocation, leg length discrepancy, need for additional surgery, cardiac and pulmonary events and . The patient wished to proceed with surgery and informed consent was obtained at this time. We will plan for ASA BID post-operatively for DVT prophylaxis. Upon discharge the patient will be discharged home with home health services. Appropriate clearances by PCP were obtained. Description of Procedure Following induction of spinal anesthesia, a tourniquet was applied to the proximal aspect of the thigh and the patient's left leg was prepped and draped in the usual sterile manner. A timeout was performed and site mary beth verified. Limb was exsanguinated with an esmarch bandage and tourniquet was inflated to 300 mmHg. The prior incision was identified and a longitudinal midline incision was made over the anterior knee. Previous surgical scar was excised. Subcutaneous tissue was sharply dissected down to fascia. Immediately we appreciated a large superior medial arthrotomy rupture extending into the medial retinacular and extending proximally with complete rupture of the quad tendon into the vastus lateralis. Electrocautery was used for hemostasis. Next we completed a medial parapatellar arthrotomy from the proximal quad rupture distally. Meticulous removal of hypertrophic synovium and scar tissue was removed with Bovie. Next we examined the femoral component tibial component and they were well fixed without any signs of wear. The patella was subluxed laterally and the knee was flexed. A carrero retractor was used to expose the synovium above on the anterior aspect of the femur and removed down to bone. Next, the anterior fat pad was removed to aid in visualization. The medial face of the tibia was cleared of soft tissue first with a bovie and a hill elevator. This tissue was retracted posteriorly using a blunt hohmann. Once adequate access was obtained to the total knee prosthesis we removed the tibial articular surface. A 14 mm PS tibial articular surface was trialed. Sequential trialing of tibial sizes was performed, increasing to a tibial articular surface size 16 mm. Varus-valgus balance was assessed in 0 degrees of extension and 30, 60 and 90 degrees of flexion. A final tibial articular surface size 16 PS was chosen. Access was gained to the patella and meticulous removal of fibrous soft tissue surrounding the patella button was removed. The patella was cleared of any remaining soft tissue. The patella button was found to be stable and well fixed without signs of wear. The knee was found to be well balanced, well aligned, with excellent patellar tracking. The trials were removed and Aquamantys was utilized for any bleeders. The knee was irrigated with copious amounts of sterile saline solution mixed with bacitracin. Access to the proximal tibia was once again obtained utilizing two bent hohmann retractors and the tibial tray was cleared of all debris and dried blood. The final tibial articular component was inserted. Next I turned my attention back to the quadriceps tendon. The traumatic arthrotomy and tendon edges were sharply debrided of all frayed tissue with scalpel blade until all clean healthy appearing tissue remained. Utilizing #5 fiberwire suture, four in total, in a Krackow technique the suture was ran along the medial and lateral edges of the tendon proximal to the rupture with four free suture ends exiting distally thru the tendon. The suture ends were tagged with a hemostat. Utilizing #5 suture again in a krakow technique the suture was ran along the medial and lateral edges of the tendon distal to the rupture with four free suture ends exiting proximally. The suture ends were then tagged with a hemostat. The knee was then irrigated with copious amounts of sterile saline solution with bacitracin. The free suture ends were then tied together with the knee in full extension. The tendon rupture reduced nicely and was without any defects. The medial arthrotomy and medial retinaculum was then closed utilizing #5 fiberwire with a combination of horizontal and figure of eight sutures. Once the capsule was completely closed and we were satisfied with the repair, the knee was flexed to 90 degrees against gravity and the repair held nicely without any appreciable defects. The knee was injected with half percent Marcaine with epi, 30 cc in total. Hemovac drains 2 were inserted superficial to the capsule. Subcutaneous closure with 2-0 Vicryl suture. Skin closure was performed using michael, sterile dressings were applied which included Xeroform, 4x4s, ABD, drain sponge and adali wrap. The tourniquit was deflated at 90 minutes. The knee was placed in a knee immobilizer at this time. The patient was extubated in the OR and transported to the PACU in stable condition. Due to the complex nature of the procedure, the entire surgery was performed with the operational assistance of Aldo Lobo PA-C. The medical library assistant, under direct supervision, was involved in the actual performance of all aspects of the surgical procedure including patient positioning, hemostasis, tissue retract ion, instrument management and wound closure. I attest to the content of the Intraoperative Record and any orders documented therein. Any exceptions are noted below.
--- NOTE | 2019-06-22 12:12 | Anesthesiology Progress Note ---
Date of Service June 22, 2019 Anesthesia Post Procedure Vital Signs Vital Signs: Temp Pulse Pulse Resp BP BP Pulse Ox 06/22/19 12:10 74 16 112/69 97 06/22/19 12:00 77 16 112/69 95 06/22/19 11:50 36.5 C 82 16 115/68 97 06/22/19 06:53 36.6 C 82 20 160/135 H 96 Pain Intensity Left Knee: Pain Intensity: 2 Transfer of Care Handoff Completed per policy Notes Mental Status: alert / awake / arousable and participated in evaluation Patient Amnestic to Procedure: Yes Nausea / Vomiting: adequately controlled Pain: adequately controlled Airway Patency, RR, SpO2: stable & adequate BP & HR: stable & adequate Hydration State: stable & adequate Anesthetic Complications: no major complications apparent and Pt Satisfied with anesthetic care
--- NOTE | 2019-06-22 12:38 | Orthopedic Progress Note ---
Date of Service June 22, 2019 Assessment & Plan (1) Status post right knee replacement: Status post I&D left total knee arthroplasty, poly-exchange, primary repair of quadriceps tendon. -Clinda x24 -DVT prophylaxis: SCDs, teds, 81 mg ASA twice daily -Weight-bear as tolerates left lower extremity in knee immobilizer -PT/OT -Monitor Hemovac output -A.m. lab -Postoperative x-ray demonstrates a well aligned well fixed orthopedic prosthesis without evidence of fracture or dislocation. -DC planning Subjective Post Operative Progress Note Patient seen sitting up in bed, comfortable, denies complaints, pain well controlled, no acute issues. Patient still feeling the effects of spinal anesthesia, denies fevers, chills, nausea, vomiting, shortness of breath or chest pain. Review of Systems Review of Systems: All systems reviewed & are unremarkable except as noted in HPI & below Constitutional: as per Subjective / HPI Physical Exam Physical Exam: Left lower extremity physical exam limited secondary to spinal anesthesia, +2 dorsalis pedis pulse, compartment soft nontender, dressing clean dry and intact, Hemovac drain intact, knee immobilizer intact. Constitutional: WD/WN, vitals as above Results & Data Vital Signs (Past 12 Hours) Vital Signs Temp Pulse Pulse Resp BP BP Pulse Ox 06/22/19 12:20 36.4 C L 73 16 112/78 97 06/22/19 12:10 74 16 112/69 97 06/22/19 12:00 77 16 112/69 95 06/22/19 11:50 36.5 C 82 16 115/68 97 06/22/19 06:53 36.6 C 82 20 160/135 H 96
--- NOTE | 2019-06-22 12:45 | XRay Report ---
XR knee LT 1 or 2V routine CLINICAL HISTORY: 63 years-old Female presenting with Surgical Post Op. TECHNIQUE: Frontal and lateral views of the left knee were obtained. COMPARISON: 05/16/2019. FINDINGS: There has been interval surgical intervention with redemonstration of total left knee arthroplasty wi th patellar resurfacing. Intra-articular and soft tissue emphysema evident. Surgical drains in place. Overlying skin michael. Resolution of prior exuberant effusion and swelling though some degree of ef fusion remains. No periprosthetic lucency or fracture. No osseous erosion or periosteal reaction. IMPRESSION: Postsurgical changes as described above. Electronically signed by: Boubacar Carpenter M.D. 06/22/2019 12:43 PM
[2019-06-22] MEDS ORDERED: METOCLOPRAMIDE HCL INJ 5 MG/ML 2 ML VIAL IV PRN (12:51)
[2019-06-22] MEDS ORDERED: NALOXONE HCL 0.4 MG/1 ML VIAL/CARP IV PRN (12:51)
[2019-06-22] MEDS ORDERED: bisacodyL 10 MG SUPP PR PRN (12:51)
[2019-06-22] MEDS ORDERED: HYDROmorphone INJ 0.5 MG/0.5 ML SYR IV PRN (12:51)
[2019-06-22] MEDS ORDERED: MAGNESIUM HYDROXIDE SUSP 30 ML UDC PO PRN (12:51)
[2019-06-22] MEDS: KETOROLAC TROMETHAMINE 15 MG/ML VIAL IV SCH ×2 (14:00→20:36)
[2019-06-22] MEDS: SODIUM CHLORIDE 0.9% 1000ML 1,000 ML IV SCH ×2 (14:00→22:16)
[2019-06-22] MEDS: ACETAMINOPHEN 500 MG TAB PO SCH ×2 (14:00→22:16)
[2019-06-22] MEDS: OXYCODONE HCL IR 5 MG TAB (IMMEDIATE RELEASE) PO PRN ×2 (16:31→20:36)
[2019-06-22] MEDS: CLINDAMYCIN 600 MG in DEXTROSE 5% 50 ML IV SCH (18:54)
[2019-06-22] MEDS: DOCUSATE SODIUM 100 MG CAP PO SCH (20:38)
[2019-06-22] MEDS ORDERED: SENNA 8.6 MG TAB PO SCH (21:00)
[2019-06-23] MEDS: OXYCODONE HCL IR 5 MG TAB (IMMEDIATE RELEASE) PO PRN ×2 (00:52→15:47)
[2019-06-23] MEDS: CLINDAMYCIN 600 MG in DEXTROSE 5% 50 ML IV SCH (01:51)
[2019-06-23] MEDS: KETOROLAC TROMETHAMINE 15 MG/ML VIAL IV SCH ×2 (01:51→07:20)
[2019-06-23] MEDS: ACETAMINOPHEN 500 MG TAB PO SCH ×2 (05:16→13:48)
[2019-06-23 05:20] LABS: Hemoglobin 11.3 g/dL (12.0-16.0); Mean Corpuscular Hemoglobin 29.5 pg (25-34); Mean Corpuscular Hgb Conc 34.2 g/dL (32-36); Mean Corpuscular Volume 86.2 fL (80-100); Mean Platelet Volume 9.8 fL (7.4-10.4); Platelet Count 250 K/uL (130-400); RDW Coefficient of Variation 13.4 % (11.5-14.5); RDW Standard Deviation 42.2 fL (36.4-46.3); Red Blood Count 3.83 M/uL (4.2-5.4); White Blood Count 11.08 K/uL (4.8-10.8)
[2019-06-23 05:54] LABS: BUN Creatinine Ratio 19.2 (10-20); Calcium 8.4 mg/dl (8.5-10.1); Creatinine Clr Calc Pharmacy 82.8 ml/min; Est GFR (African American) 73.9; Est GFR (Non-African American) 63.7; Potassium 3.6 mmol/L (3.5-5.1)
[2019-06-23] MEDS ORDERED: LEVOTHYROXINE SODIUM 75 MCG TABLET PO SCH (06:30)
--- NOTE | 2019-06-23 07:58 | Anesthesiology Progress Note ---
Date of Service June 23, 2019 Anesthesia Post Procedure Vital Signs Vital Signs: Temp Pulse Pulse Resp BP BP Pulse Ox 06/23/19 07:21 36.6 C 61 16 134/71 98 06/23/19 03:45 36.5 C 61 17 120/69 98 06/22/19 23:36 36.5 C 63 18 120/77 95 06/22/19 16:05 36.8 C 79 16 125/75 97 06/22/19 15:05 36.7 C 78 16 120/75 95 06/22/19 13:40 72 16 132/75 97 06/22/19 13:10 77 16 139/74 97 06/22/19 12:40 36.5 C 75 16 134/81 99 06/22/19 12:20 36.4 C L 73 16 112/78 97 06/22/19 12:10 74 16 112/69 97 06/22/19 12:00 77 16 112/69 95 06/22/19 11:50 36.5 C 82 16 115/68 97 Pain Intensity Left Knee: Pain Intensity: 5 Notes Mental Status: alert / awake / arousable and participated in evaluation Patient Amnestic to Procedure: Yes Nausea / Vomiting: adequately controlled Pain: adequately controlled Airway Patency, RR, SpO2: stable & adequate BP & HR: stable & adequate Hydration State: stable & adequate Neuraxial Anesthesia: was administered and sensory block resolved Anesthetic Complications: no major complications apparent and Pt Satisfied with anesthetic care
[2019-06-23] MEDS: DOCUSATE SODIUM 100 MG CAP PO SCH (08:25)
[2019-06-23] MEDS ORDERED: hydroCHLOROthiazide 25 MG TAB PO SCH (09:00)
[2019-06-23] MEDS ORDERED: PANTOprazole 40 MG TAB PO SCH (09:00)
[2019-06-23] MEDS ORDERED: MULTIVITAMIN TAB PO SCH (09:00)
[2019-06-23] MEDS ORDERED: ASPIRIN 81 MG ECTAB PO SCH (09:00)
--- NOTE | 2019-06-23 11:52 | Orthopedic Progress Note ---
Date of Service June 23, 2019 Assessment & Plan (1) Status post right knee replacement: Status post I&D left total knee arthroplasty, poly-exchange, primary repair of quadriceps tendon. Postoperative day #1 -Clinda x24 -DVT prophylaxis: SCDs, teds, 81 mg ASA twice daily -Weight-bear as tolerates left lower extremity in knee immobilizer -PT/OT -Monitor Hemovac output - 25/75 -A.m. lab -hemoglobin 11.3 -Postoperative x-ray demonstrates a well aligned well fixed orthopedic prosthesis without evidence of fracture or dislocation. -DC planning -Home with home health Subjective Post Operative Progress Note Patient seen sitting up in bed, comfortable, denies complaints, pain well controlled, no acute issues. Patient still feeling the effects of spinal anesthesia, denies fevers, chills, nausea, vomiting, shortness of breath or chest pain. Review of Systems Review of Systems: All systems reviewed & are unremarkable except as noted in HPI & below Constitutional: as per Subjective / HPI Physical Exam Physical Exam: LLE NVSI +EHL/FHL/TA/GS SILT grossly, +2 DP pulse, compartments soft NT, dressing cdi. Hemovac drain intact. Constitutional: WD/WN, vitals as above Results & Data Vital Signs (Past 12 Hours) Vital Signs Temp Pulse Resp BP BP Pulse Ox 06/23/19 07:21 36.6 C 61 16 134/71 98 06/23/19 03:45 36.5 C 61 17 120/69 98
[2019-06-23] MEDS ORDERED: CeleBREX 200 MG CAP PO SCH (21:00)
--- NOTE | 2019-06-24 20:04 | Discharge Summary ---
Date of Service June 24, 2019 Admission HPI Per Admitting Provider The patient is a 63 year old female who underwent left total knee arthroplasty on 03/30/19. The patient sustained a fall from standing height on 05/16/19 and was seen at [facility] ED for distal wound dehiscence which was closed by the ED staff at the direction of orthopedic surgeon diamond blender and discharged home on oral abx. The patient was subsequently seen in the office and found to have extensor lag and appreciable defect of the proximal medial arthrotomy which was confirmed by MRI for a partial rupture of the medial quad tendon. I have indicated the patient for I+D of the left total knee, poly swap, exploration of the arthrotomy/quad tendon with primary repair. Principal Diagnosis I+D, poly exchange left total knee, primary quad tendon repair. Discharge Exam LLE NVSI +EHL/FHL/TA/GS SILT grossly, +2 DP pulse, compartments soft NT, dressing cdi. Constitutional WD/WN, vitals as above Discharge Data Allergies Allergy/AdvReac Type Severity Reaction Status Date / Time blue dye AdvReac Intermediate Tachycardia Verified 06/22/19 06:53 adhesive tape AdvReac Mild SKIN Verified 06/22/19 06:53 BREAKS OUT Penicillins AdvReac Mild yeast Verified 06/22/19 06:53 infection & upset stomach Consultations 06/22/19 12:51 Consult Case Management - Discharge Planning Routine Procedures Performed Operation Date: 06/22/19 09:30 Actual Procedures s Left Knee Incision and Drainage,(Left) - Brien Beltran DO p Poly Swap,(Left) - Brien Beltran DO s Primary Quad Tendon Repair(Left) - Brien Beltran DO Ordered Studies 06/22/19 05:00 US - OR guided needle placemen Routine 06/22/19 08:03 US - OR guided needle placemen Routine Hospital Course (1) Status post right knee replacement: The patient is a 63 -year-old female who presents with traumatic quad tendon rupture after sustaining a fall 6 weeks s/p left total knee replacement. I indicated the patient for a I+D, poly exchange left total knee arthroplasty, repair of arthrotomy and quad tendon, the risks, benefits and complications of the procedure include but not limited to infection, bleeding, damage to bone, ne rves, vessels, surrounding soft tissue, may develop blood clots, loss of function, leg length discrepancy, dislocation, failure of the components, loosening of the components, the need for additional surgery and . The patient wished to proceed with surgery at this time and informed consent was obtained. Hospital Course: On 06/22/19 the patient was taken to the operating room, adequate anesthesia administered and underwent a I+D, poly exchange left total knee arthroplasty, primary quad tendon repair. The patient tolerated the procedure well and was taken to the PACU in stable condition. Post-operatively the patient was started on a DVT ppx medication and given appropriate IV antibiotics. Consults were placed to physical therapy, occupational therapy and case management. On POD#1, the patient did well overnight and their pain was well controlled. Labs were drawn and the Hgb was 11.3. The patient progressed well with PT. Dressings were changed at this time and the incision was clean, dry and intact. The patients hospital stay was relatively uneventful and they were deemed stable by the orthopedic team and consultants to be discharged home with on 05/23/19. Discharge Instructions: Upon discharge the patient may weight bear as tolerates through their operative extremity in knee immobilizer. She is to avoid all bending until cleared by her surgeon. They were instructed to keep the incision clean and dry at all times. The patient may shower but should not submerge the incision, avoid bathing, pools and hot tubes. The patient was given a script for pain medication and should take as instructed. The patient was given a script for DVT ppx ASA 81mg BID and should take as directed. The patient was instructed to not drive or travel for long distances until cleared to do so. If the patient develops any symptoms of fevers, chills, nausea, vomiting, increased redness, swelling, pain or drainage from the surgical site, they should notify the office and/or proceed to the nearest emergency room. The patient should follow up in 10-14 days after surgery for their routine post-operative follow-up appointment and should call the office to confirm the date and time. Status post I&D left total knee arthroplasty, poly-exchange, primary repair of quadriceps tendon. Postoperative day #1 -Clinda x24 -DVT prophylaxis: SCDs, teds, 81 mg ASA twice daily -Weight-bear as tolerates left lower extremity in knee immobilizer -PT/OT -Monitor Hemovac output - 25/75 -A.m. lab -hemoglobin 11.3 -Postoperative x-ray demonstrates a well aligned well fixed orthopedic prosthesis without evidence of fracture or dislocation. -DC planning -Home with home health Total Time Total Time Spent Total Time Spent (In Minutes): 45 minutes Discharge Plan Discharge Items Patient Disposition: Home - Home Health Services Reason For Visit: Pain D/T Internal Orthopedic Prosthetic Devices Discharge Diagnosis: I+D, Poly exchange left total knee, primary repair quadriceps tendon Condition on Discharge: Good Activity: Per Instructions section Lifting: Wait until after follow-up appointment Bathing: Keep incision dry Bathing Comment: No bathing, pools or hot tubs. Sexual Activity: Wait until after follow-up appointment Exercise/Sports: Wait until after follow-up appointment Driving/Machine Use: No driving Weightbearing: Full weightbearing Weightbearing Comment: In knee immobilizer Non-emergency contact: Primary Care Provider and Surgeon Call non-emergency contact if: you have any medication questions, your symptoms worsen, your pain is not controlled, your pain is worsening, your pain is unusual for you, your pain is concerning for you, you have a fever, your temperature is above 101, your wound has increased redness, your wound has increased drainage and your wound pain has increased Follow-up/Referrals: Armando Tejeda D.O. [Primary Care Provider] - Diet: Regular Addtl Attending Provider Instructions: ACTIVITY RECOMMENDATIONS: SELF CARE INSTRUCTIONS AFTER QUAD TENDON REPAIR A. You may need to continue a physical therapy program after discharge from the hospital. There are several options available to you. Your doctor will assist you in selecting the best one for you. 1. An out-patient facility 2 to 3 times a week for therapy or home therapy. 2. Continue working on all exercises taught to you in the hospital. No bending of your knee till instructed by your surgeon B. You may progress at your own pace from walking with a walker or crutches to a cane; then to no assistive devices. C. Make walking a part of your daily routine. Be up as much as comfortable with rest periods throughout the day. Rest with leg elevation is very important. Use the ice wrap frequently for the first 3-4 weeks. D. There are no restrictions on activities. You may ride in a car, shop, participate in employment counselor and all social activities. E. Wear the long elastic stockings (STAS hose) 20 hours a day for 2 weeks after surgery. They can be removed several times a day for laundering and for a bath. F. You may shower, no tub baths until cleared by your doctor. G. Keep knee immobilized at all times, absolutely no bending of your knee till instructed by your surgeon. SPECIAL CARE INSTRUCTIONS: VERY IMPORTANT TO READ AND REVIEW A. There are a few signs you need to watch for after you are home. Call [facility] if you notice any of the followin. Increased severe knee pain. Some pain is expected especially when you exercise. 2. Increased swelling in your leg or knee; pain or swelling of the calf muscle in either lower leg. 3. Any fluid drainage from the incision. 4. Shortness of breath or chest pain. B. Please call [facility] at if you have any concerns or questions about your operation or recovery. The doctor or his nurse will return your call promptly. C. You must take antibiotics before dental work, bladder, bowel or other surgery. Your doctor will provide you with a permanent care to carry describing this precaution. IMPORTANT: * REMEMBER TO TAKE ASPIRIN, 81 MG, TWICE DAILY FOR 4 WEEKS UNLESS OTHERWISE DIR ECTED. THIS IS YOUR BLOOD THINNER. * HIGH RISK PATIENTS MAY BE PRESCRIBED A STRONGER BLOOD THINNER. THIS WILL BE PROVIDED AT DISCHARGE. * CALL IF INCREASED PAIN, REDNESS, DRAINAGE OR FEVER GREATER THAT 101. * WEAR STAS HOSE 20 HOURS PER DAY FOR 2 WEEKS. * YOU MAY HAVE A LARGE BAND-AID LIKE DRESSING (SILVERON). THIS WILL REMAIN ON YOUR INCISION FOR 7 DAYS, THEN CAN BE REMOVED. IF INCISION IS LEAKING THROUGH DRESSING, CALL THE OFFICE . FOLLOW UP VISIT: If appointment is not already scheduled: Please call [facility] to make a follow-up appointment for 2 weeks after your surgery at . Pending Studies at Discharge: No Stand-Alone Forms: My [facility] [employer], Opioid Pain Management, Smoking Cessation Medications and DC Order Prescriptions: New celecoxib [Celebrex] 200 mg Capsule 200 mg PO BID Qty: 28 RF: 0 aspirin [Ecotrin Low Strength] 81 mg Tablet,Delayed Release (Dr/Ec) 81 mg PO BID Qty: 56 RF: 0 acetaminophen [Tylenol Extra Strength] 500 mg Tablet 1,000 mg PO Q8 PRN (Reason: pain) Qty: 90 RF: 0 docusate sodium 100 mg Capsule 100 mg PO BID Qty: 28 RF: 0 oxycodone 5 mg capsule 5 mg PO Q6 MDD 6 tablets PRN (Reason: pain) Qty: 30 RF: 0 oxycodone 5 mg Tablet 5 mg PO Q6H MDD 6 tabs PRN (Reason: pain) Qty: 30 RF: 0 Continued levothyroxine [Synthroid] 75 mcg Tablet 75 mcg PO QAM RF: 0 esomeprazole magnesium [Nexium] 40 mg Capsule,Delayed Release(Dr/Ec) 40 mg PO QAM RF: 0 hydrochlorothiazide 25 mg Tablet 25 mg PO QAM RF: 0 ergocalciferol (vitamin D2) [Vitamin D2] 50,000 unit Capsule 50,000 unit PO WK RF: 0 ascorbic acid (vitamin C) [Vitamin C] 1,000 mg Tablet 1,000 mg PO QAM RF: 0 Discharge Orders: Discharge Order (Routine); Ordered 06/23/19 Ordered By: Brien Beltran Admission Data Admit Date/Time: 06/22/19 11:53 Attending Provider: Brien Beltran Admit Provider: Brien Beltran Primary Care Provider: Armando Tejeda Other Interventions: Discharge Summary Assessment (RN) Last Done: 06/23/19 15:36 DC Date/Time DO NOT enter until pt leaves facility: 06/23/19 16:50
--- NOTE | 2019-07-13 13:30 | Coding Query ---
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 Please assist us with the question(s) below: Please place an X in the parenthesis (x). If other, please document the finding: Type of Debridement: ( X ) Excisional Debridement- Cutting away necrotic, devitalized tissue or slough to the level of viable tissue using a sharp instrument (i.e. scalpel, scissors, etc.) ( ) Non Excisional Debridement- The removal of necrotic, devitalized tissue or slough by means of scraping, mechanical brushing, flushing, or washing (i.e. irrigation,whirlpool);minor removal of loose fragments. ( ) Other (please specify): Instrument Used: ( X ) Scissors ( X ) Scalpel (X ) Curette ( ) Other (please specify): Depth of Debridement: ( ) Skin ( ) Skin and Subcutaneous Tissue ( X Skin, Subcutaneous Tissue and Muscle ( ) Skin, Subcutaneous Tissue, Muscle and Bone ( ) Other (please specify): Please Specify the Size of Debridement in cm2: 2cm x 4cm Thank you Faye RONDON
== END 2019-06-23 16:50 | disposition home health service (06) | DRG 468 ==
LOC: ASU 06:20 → 3E 11:53

== ENCOUNTER 2019-11-05 08:55 | Inpatient (IN) ==
[2019-11-05] MEDS ORDERED: OXYCODONE HCL IR 5 MG TAB (IMMEDIATE RELEASE) PO PRN (14:47)
--- NOTE | 2019-11-05 15:27 | Communication Note ---
Date of Service: November 05, 2019 Pt admitted for left knee infection. Planning for I/D left TKA with explant of hardware. Orders placed. Consult Med Service for preop clearance/post op medical management. Will consult ID as well. For OR tomorrow @ 1:30pm
[2019-11-05 15:32] LABS: Basophils # (auto) 0.03 K/uL (0-0.2); Basophils % (auto) 0.4 %; Eosinophils # (auto) 0.19 K/uL (0-0.5); Eosinophils % (auto) 2.6 %; Hematocrit (blood only) 31.8 % (37-47); Immature Granulocytes # (auto) 0.02 K/uL (0.00-0.02); Immature Granulocytes % (auto) 0.3 %; Lymphocytes # (auto) 2.53 K/uL (1.2-3.4); Lymphocytes % (auto) 34.5 %; Mean Corpuscular Hemoglobin 25.8 pg (25-34); Mean Corpuscular Hgb Conc 31.4 g/dL (32-36); Mean Platelet Volume 8.8 fL (7.4-10.4); Monocytes # (auto) 0.51 K/uL (0.11-0.59); Neutrophils # (auto) 4.05 K/uL (1.4-6.5); Neutrophils % (auto) 55.2 %; Platelet Count 560 K/uL (130-400); RDW Coefficient of Variation 16.8 % (11.5-14.5); RDW Standard Deviation 51.3 fL (36.4-46.3); Red Blood Count 3.88 M/uL (4.2-5.4); White Blood Count 7.33 K/uL (4.8-10.8)
[2019-11-05 15:48] LABS: BUN Creatinine Ratio 14.9 (10-20); C Reactive Protein 6.09 mg/dl (0-0.29); Calcium 9.5 mg/dl (8.5-10.1); Creatinine Clr Calc Pharmacy 64.8 ml/min; Est GFR (African American) 58.9; Est GFR (Non-African American) 50.8
--- NOTE | 2019-11-05 16:09 | Hospitalist Consultation ---
Date of Consultation November 05, 2019 Assessment & Plan (1) Infection of left knee: - On Keflex/Bactrim as outpatient for presumed septic left knee joint, diagnosed on 10/29 by orthopedics. - Admitted for planned procedure, primary team orthopedics. - IV abx, pain control, DVT ppx per ortho. - Recommend PT/OT post op for discharge planning. - EKG was negative; CXR is pending. RCRI is 3.9%, low risk for surgery - recommend to proceed with operation in the morning. (2) History of arthroplasty of left knee: - H/o Left TKA in March 2019; also required Left Knee Incision and Drainage, Poly Swap, Primary Quad Tendon Repair in June 2019. - Management per ortho as noted above. (3) GERD (gastroesophageal reflux disease): - PPI daily as inpatient. (4) Hypertension: - H/o, pt. reports she does not take anti-hypertensives at home. (5) Hypothyroidism: - Continue home Synthroid 75 mcg daily (will bring med from home, prefers brand name) - TSH in the morning. (6) Premature ventricular contractions: - H/o, PVCs were not present on EKG today. (7) Anemia: - Hgb 10.0, pre op value. Baseline hgb ~13.0. - Borderline microcytic with MCV 82 -- will order iron studies in the morning. - Monitor CBC daily -- will trend down due to intra op blood loss and IV fluids. (8) Obesity: - BMI 32.6. - Encourage weight loss and exercise. (9) DVT prophylaxis: - SCDs; hold pharmacologic ppx for procedure. Dispo: Med/surg; will continue to follow, please call with any questions. Supervising Physician Co-Signing Physician Notes Patient seen and examined after the [facility]. Agree with her note above. Patient was admitted as a direct admission by the orthopedic service secondary to infected hardware in the left knee. Patient has been on Bactrim and Keflex as an outpatient. Tentative plan for surgery tomorrow for an I&D of the left knee along with explant of hardware. Our service was consulted by for medical management. Patient is awake alert and oriented when I arrived in the room. She is in very good spirits. She tells me the knee does not hurt as long she does not move it. She has noticed significant swelling with erythema that knee but is "soft" a bit on outpatient antibiotics. She is currently not febrile and blood pressure stable. Exam reveals heart is regular rate with no murmurs. Lungs are clear to auscultation. Abdomen soft, nontender, nondistended. Extremities without clubbing sinus edema. She has evidence of bilateral knee replacement. The left knee is erythematous and indurated. There is a small ulceration above the patella with an eschar. There is no drainage from this area. The remainder exam is as noted above. Patient is considered low risk for orthopedic procedure as planned. We will defer antibiotics and operative management per primary service. I do see that infectious diseases also consulted see the patient and agree with this. I will continue to monitor peripherally the patient's postoperative. Thank very much for this consult. History of Present Illness Reason for Consultation: Medical management Attending Physician: Brien Beltran DO History of Present Illness Mrs. Mendoza is a 64 year old female with past medical history of GERD, HTN (now resolved), Hypothyroidism, Obesity, Osteoarthritis who presented for a planned procedure with orthopedics in the setting of a septic left knee joint. She was evaluated by orthopedics on Saturday as an outpatient; patient started taking Bactrim and Keflex for coverage of infection. She presented for a planned procedure in setting of septic joint. Initial left TKA was completed in March 2019; she required left knee I&D, poly swap and primary quad tendon repair in June 2019. Pt. developed increased swelling in left knee and pain over the last week, leading to appointment with orthopedics 6 days ago. She currently complains of swelling and mild pain along with trouble ambulating. Pt. denies chest pain or shortness of breath at rest/with exertion. She has not climbed a flight of stairs due to knee pain but denies cardiac issues leading to inability to exercise. Denies h/o FL or CVA in the past. She was diagnosed with PACs during routine colonoscopy; does have PACs noted during exam today. Allergies Allergy/AdvReac Type Severity Reaction Status Date / Time cephalexin Allergy Mild Hives Verified 11/05/19 13:19 blue dye AdvReac Intermediate Tachycardia Verified 06/22/19 06:53 adhesive tape AdvReac Mild SKIN Verified 06/22/19 06:53 BREAKS OUT oxycodone AdvReac Mild Nausea Verified 11/05/19 13:19 Penicillins AdvReac Mild yeast Verified 06/22/19 06:53 infection & upset stomach Home Medications Home Medications Medication Instructions Recorded Confirmed Type ergocalciferol (vitamin D2) 50,000 unit PO WK 10/27/18 11/05/19 History [Vitamin D2] esomeprazole magnesium [Nexium] 40 mg PO QAM 10/27/18 11/05/19 History levothyroxine [Synthroid] 75 mcg PO QAM 10/27/18 11/05/19 History ascorbic acid (vitamin C) [Vitamin 1,000 mg PO QAM 03/03/19 11/05/19 History C] oxycodone 5 mg PO Q6 PRN #30 cap MDD 6 06/23/19 11/05/19 Rx tablets Patient History Medical History GERD (gastroesophageal reflux disease) HSP (Henoch Schonlein purpura) Hypertension Hypothyroidism Obesity Osteoarthritis Premature ventricular contractions DETECTED WHILE BEING MONITORED FOR COLONOSCOPY 2017-NO ISSUES SINCE PER PT Surgical History H/O eye surgery LEFT ORBITAL REPAIR H/O foot surgery RT SIDE/BUNIONECTOMY AND HAMMER TOE CORRECTION History of colonoscopy History of dilatation and curettage History of esophagogastroduodenoscopy (EGD) History of hysterectomy History of left knee replacement Mar 2019 History of tooth extraction History of total knee replacement RIGHT -- 11/26/18, SAB + PNB both successful x 1 attempt Left: 03/30/2019: SAB with PNB and MAC. No issues. Nausea and vomiting after administration of anesthetic agent ALSO HAS BEEN SLOW TO WAKE UP IN THE PAST Family History Father Family history of diabetes mellitus Sister Family history of diabetes mellitus Social History Preferred Language: [place] Communication Ability: Effective V/Stol Landing Signal Officer Required: No Beliefs That Will Affect Care: None marital status: Current Living Situation: Spouse Other Information That Helps Us Care for You: No Feels Safe at Home: Yes Safety Concerns: Feels Safe At This Time Smoking Status: Never smoker Do You Dip or Chew Tobacco: No ; Second Hand Exposure: No ; Hx Alcohol Use: No Hx Substance Use: No Review of Systems Review of Systems: All systems reviewed & are unremarkable except as noted in HPI & below Constitutional: no fever, no chills, no fatigue, no weakness and no anorexia Respiratory: no cough, no dyspnea, no dyspnea on exertion and no wheezing Cardiovascular: no chest pain, no palpitations and no edema Gastrointestinal: no abdominal pain, no nausea, no vomiting, no constipation and no diarrhea/loose stools Genitourinary: no dysuria, no difficulty urinating, no urinary frequency and no hematuria Musculoskeletal: + joint pain and + swelling; no back pain Integumentary: no non-healing lesions Physical Exam Physical Exam: General: Resting comfortably HEENT: NC/AT; PERRLA with EOMI; [place] conjunctiva, MMM. No erythema of posterior pharynx Neck: Supple and nontender Cardiac: RRR Lungs: CTA bilaterally Abdomen: Bowel normoactive X 4; Nontender to palpation Extremities: Warm. Moderate edema noted at site of left knee and surrounding area -- tender to palpation. Neuro: No focal weakness Skin: Mild erythema noted over left knee. Results & Data ([facility]) Vital Signs (Past 12 Hours) Vital Signs Temp Pulse Resp BP Pulse Ox 11/05/19 12:35 36.9 C 75 16 164/81 H 98 Laboratory Results 11/05/19 11/05/19 11/05/19 Range/Units 15:11 15:11 15:11 WBC 7.33 (4.8-10.8) K/uL RBC 3.88 L (4.2-5.4) M/uL Hgb 10.0 L (12.0-16.0) g/dL Hct 31.8 L (37-47) % MCV 82.0 (80-100) fL MCH 25.8 (25-34) pg MCHC 31.4 L (32-36) g/dL RDW Std Deviation 51.3 H (36.4-46.3) fL RDW Coeff of Jovita 16.8 H (11.5-14.5) % Plt Count 560 H (130-400) K/uL MPV 8.8 (7.4-10.4) fL Immature Gran % (Auto) 0.3 % Neut % (Auto) 55.2 % Lymph % (Auto) 34.5 % [place] % (Auto) 7.0 % Eos % (Auto) 2.6 % Baso % (Auto) 0.4 % Immature Gran # (Auto) 0.02 (0.00-0.02) K/uL Neut # (Auto) 4.05 (1.4-6.5) K/uL Lymph # (Auto) 2.53 (1.2-3.4) K/uL [place] # (Auto) 0.51 (0.11-0.59) K/uL Eos # (Auto) 0.19 (0-0.5) K/uL Baso # (Auto) 0.03 (0-0.2) K/uL ESR > 90 H (0-21) mm/hr Sodium 136 (136-145) mmol/L Potassium 4.0 (3.5-5.1) mmol/L Chloride 105 (98-107) mmol/L Carbon Dioxide 26 (21-32) mmol/L Anion Gap 5.0 (3-11) BUN 17 (7-18) mg/dl Creatinine 1.14 (0.6-1.2) mg/dl Est Cr Clr Drug Dosing 64.8 ml/min Est GFR ( Amer) 58.9 Est GFR (Non-Af Amer) 50.8 BUN/Creatinine Ratio 14.9 (10-20) Glucose 85 (70-99) mg/dl Calcium 9.5 (8.5-10.1) mg/dl C-Reactive Protein 6.09 H (0-0.29) mg/dl Blood Type Antibody Screen 11/05/19 Range/Units 15:11 WBC (4.8-10.8) K/uL RBC (4.2-5.4) M/uL Hgb (12.0-16.0) g/dL Hct (37-47) % MCV (80-100) fL MCH (25-34) pg MCHC (32-36) g/dL RDW Std Deviation (36.4-46.3) fL RDW Coeff of Jovita (11.5-14.5) % Plt Count (130-400) K/uL MPV (7.4-10.4) fL Immature Gran % (Auto) % Neut % (Auto) % Lymph % (Auto) % [place] % (Auto) % Eos % (Auto) % Baso % (Auto) % Immature Gran # (Auto) (0.00-0.02) K/uL Neut # (Auto) (1.4-6.5) K/uL Lymph # (Auto) (1.2-3.4) K/uL [place] # (Auto) (0.11-0.59) K/uL Eos # (Auto) (0-0.5) K/uL Baso # (Auto) (0-0.2) K/uL ESR (0-21) mm/hr Sodium (136-145) mmol/L Potassium (3.5-5.1) mmol/L Chloride (98-107) mmol/L Carbon Dioxide (21-32) mmol/L Anion Gap (3-11) BUN (7-18) mg/dl Creatinine (0.6-1.2) mg/dl Est Cr Clr Drug Dosing ml/min Est GFR ( Amer) Est GFR (Non-Af Amer) BUN/Creatinine Ratio (10-20) Glucose (70-99) mg/dl Calcium (8.5-10.1) mg/dl C-Reactive Protein (0-0.29) mg/dl Blood Type Pending Antibody Screen Pending PG Care Time/CCT Total # of Minutes Spent Total Time Spent with Patient: Total time spent is greater than 50% in coordination of care (as documented) at patient's floor/unit and/or counseling patient: Coding Level of Care Code 50508 Inpt Consult Level 3 Diagnoses Infection of left knee M00.9 History of arthroplasty of left knee Z96.652 GERD (gastroesophageal reflux disease) K21.9 Hypertension I10 Hypothyroidism E03.9 Premature ventricular contractions I49.3 Anemia D64.9 Obesity E66.9 DVT prophylaxis Z29.9
--- NOTE | 2019-11-05 16:21 | XRay Report ---
XR chest 2V PA/lateral CLINICAL HISTORY: Preoperative chest COMPARISON STUDY: 10/30/2018 FINDINGS: The cardiac and mediastinal contours are normal. There is no evidence of focal pulmonary co nsolidation. There is no evidence of failure. No pleural effusions are visualized.[ IMPRESSION: No active disease in the chest. ACT 112: Negative or not required by law. Electronically signed by: Kade Rayo M.D. 11/05/2019 4:20 PM
[2019-11-05] MEDS: SODIUM CHLORIDE 0.9% 1000ML 1,000 ML IV SCH (16:22)
--- NOTE | 2019-11-05 20:35 | History & Physical Report ---
Date of Service November 05, 2019 Assessment & Plan (1) Infection of total left knee replacement: I have indicated the patient for I+D, explant left total knee replacement, placement of antibiotic cement spacer. The risks, benefits and complications of surgery were explained to the patient which include but not limited to infection, acute blood loss, DVT/PE, injury to nerves, vessels, bone, soft tissue, arthrofibrosis, chronic pain, failure of the prosthesis, knee dislocation, leg length discrepancy, need for additional surgery, cardiac and pulmonary events and . Plan for surgery 11/06/19. Patient afebrile and normal WBC, will hold antibiotics Hold anticoagulation consults to medical hospitalist and ID XR L knee NPO after midnight History of Present Illness Chief Complaint: Left knee periprosthetic joint infection Primary Care Provider: Armando Tejeda Patient is a 64-year-old female with PSHx for Left TKA performed 03/30/19. The patient did well post operatively however sustained a mechanical fall and sustained a dehiscence of her surgical incision and quad tendon rupture. She underwent I+D, poly exchange and primary quad tendon repair on 06/22/19. The patient states she started developing a rash medial and lateral to her incision shortly after her last office appointment which was on 10/21/19. She was seen by her PCP on 10/30/19 and inflammatory labs drawn. Inflammatory labs were concerning for infectious process and the patient was asked to go to the ER however due to Coronavirus concern she elected to follow up in the office. The patient was seen in the office on 11/02/19 and arthrocentesis was performed and sent for Synovasure fluid analysis. Results positive alpha-defensins, CC [id number], Neuts 92.5%, culture showing gram positive cocci. The patient was directly admitted on 11/05/19 for medical optimization and surgery. Allergies Allergy/AdvReac Type Severity Reaction Status Date / Time cephalexin Allergy Mild Hives Verified 11/05/19 13:19 blue dye AdvReac Intermediate Tachycardia Verified 06/22/19 06:53 adhesive tape AdvReac Mild SKIN Verified 06/22/19 06:53 BREAKS OUT oxycodone AdvReac Mild Nausea Verified 11/05/19 13:19 Penicillins AdvReac Mild yeast Verified 06/22/19 06:53 infection & upset stomach Home Medications Home Medications Medication Instructions Recorded Confirmed Type ergocalciferol (vitamin D2) 50,000 unit PO WK 10/27/18 11/05/19 History [Vitamin D2] esomeprazole magnesium [Nexium] 40 mg PO QAM 10/27/18 11/05/19 History levothyroxine [Synthroid] 75 mcg PO QAM 10/27/18 11/05/19 History ascorbic acid (vitamin C) [Vitamin 1,000 mg PO QAM 03/03/19 11/05/19 History C] oxycodone 5 mg PO Q6 PRN #30 cap MDD 6 06/23/19 11/05/19 Rx tablets Past Med/Surg History Medical History Anemia GERD (gastroesophageal reflux disease) HSP (Henoch Schonlein purpura) Hypertension Hypothyroidism Obesity Osteoarthritis Premature ventricular contractions DETECTED WHILE BEING MONITORED FOR COLONOSCOPY 2018-NO ISSUES SINCE PER PT Surgical History H/O eye surgery LEFT ORBITAL REPAIR H/O foot surgery RT SIDE/BUNIONECTOMY AND HAMMER TOE CORRECTION History of colonoscopy History of dilatation and curettage History of esophagogastroduodenoscopy (EGD) History of hysterectomy History of left knee replacement Mar 2019 History of tooth extraction History of total knee replacement RIGHT -- 11/26/18, SAB + PNB both successful x 1 attempt Left: 03/30/2019: SAB with PNB and MAC. No issues. Nausea and vomiting after administration of anesthetic agent ALSO HAS BEEN SLOW TO WAKE UP IN THE PAST Family History Father Family history of diabetes mellitus Sister Family history of diabetes mellitus Social History Preferred Language: Bengali Communication Ability: Effective Cloth Stretcher Required: No Beliefs That Will Affect Care: None marital status: Current Living Situation: Spouse Other Information That Helps Us Care for You: No Feels Safe at Home: Yes Safety Concerns: Feels Safe At This Time Smoking Status: Never smoker Do You Dip or Chew Tobacco: No ; Second Hand Exposure: No ; Hx Alcohol Use: No Hx Substance Use: No Review of Systems Review of Systems: All systems reviewed & are unremarkable except as noted in HPI & below Constitutional: as per Subjective / HPI Physical Exam Physical Exam: LLE NVSI +EHL/FHL/TA/GS SILT grossly, +2 DP pulse, compartments soft NT, incision CDI no drainage or dehiscence. ROM 5-115 degrees of flexion, pain at endpoint extension and flexion. Constitutional: WD/WN, vitals as above Eyes: PERRL, conjunctivae normal, anicteric sclerae ENMT: external ear and nose normal, oropharynx normal Neck: trachea midline, no thyromegaly Respiratory: normal respiratory effort, lungs clear to auscultation Cardiovascular: RRR, no murmur, no edema Gastrointestinal (Abdomen): normal bowel sounds, soft, nontender, no hepatosplenomegaly Musculoskeletal: no cyanosis or clubbing, extremities motor strength 5/5 Skin: no rashes, warm and dry Neurologic: patellar DTR's 2+ bilat, sensation intact Psychiatric: A+Ox3, euthymic affect Lymphatic: no cervical or axillary lymphadenopathy Results & Data Vital Signs (Past 12 Hours) Vital Signs Temp Pulse Resp BP Pulse Ox 11/05/19 17:10 130/77 11/05/19 16:16 36.9 C 66 18 182/74 H 97 11/05/19 12:35 36.9 C 75 16 164/81 H 98 Laboratory Results 11/05/19 11/05/19 11/05/19 Range/Units 15:11 15:11 15:11 WBC 7.33 (4.8-10.8) K/uL RBC 3.88 L (4.2-5.4) M/uL Hgb 10.0 L (12.0-16.0) g/dL Hct 31.8 L (37-47) % MCV 82.0 (80-100) fL MCH 25.8 (25-34) pg MCHC 31.4 L (32-36) g/dL RDW Std Deviation 51.3 H (36.4-46.3) fL RDW Coeff of Jovita 16.8 H (11.5-14.5) % Plt Count 560 H (130-400) K/uL MPV 8.8 (7.4-10.4) fL Immature Gran % (Auto) 0.3 % Neut % (Auto) 55.2 % Lymph % (Auto) 34.5 % [place] % (Auto) 7.0 % Eos % (Auto) 2.6 % Baso % (Auto) 0.4 % Immature Gran # (Auto) 0.02 (0.00-0.02) K/uL Neut # (Auto) 4.05 (1.4-6.5) K/uL Lymph # (Auto) 2.53 (1.2-3.4) K/uL [place] # (Auto) 0.51 (0.11-0.59) K/uL Eos # (Auto) 0.19 (0-0.5) K/uL Baso # (Auto) 0.03 (0-0.2) K/uL ESR > 90 H (0-21) mm/hr Sodium 136 (136-145) mmol/L Potassium 4.0 (3.5-5.1) mmol/L Chloride 105 (98-107) mmol/L Carbon Dioxide 26 (21-32) mmol/L Anion Gap 5.0 (3-11) BUN 17 (7-18) mg/dl Creatinine 1.14 (0.6-1.2) mg/dl Est Cr Clr Drug Dosing 64.8 ml/min Est GFR ( Amer) 58.9 Est GFR (Non-Af Amer) 50.8 BUN/Creatinine Ratio 14.9 (10-20) Glucose 85 (70-99) mg/dl Calcium 9.5 (8.5-10.1) mg/dl C-Reactive Protein 6.09 H (0-0.29) mg/dl Blood Type Antibody Screen 11/05/19 Range/Units 15:11 WBC (4.8-10.8) K/uL RBC (4.2-5.4) M/uL Hgb (12.0-16.0) g/dL Hct (37-47) % MCV (80-100) fL MCH (25-34) pg MCHC (32-36) g/dL RDW Std Deviation (36.4-46.3) fL RDW Coeff of Jovita (11.5-14.5) % Plt Count (130-400) K/uL MPV (7.4-10.4) fL Immature Gran % (Auto) % Neut % (Auto) % Lymph % (Auto) % [place] % (Auto) % Eos % (Auto) % Baso % (Auto) % Immature Gran # (Auto) (0.00-0.02) K/uL Neut # (Auto) (1.4-6.5) K/uL Lymph # (Auto) (1.2-3.4) K/uL [place] # (Auto) (0.11-0.59) K/uL Eos # (Auto) (0-0.5) K/uL Baso # (Auto) (0-0.2) K/uL ESR (0-21) mm/hr Sodium (136-145) mmol/L Potassium (3.5-5.1) mmol/L Chloride (98-107) mmol/L Carbon Dioxide (21-32) mmol/L Anion Gap (3-11) BUN (7-18) mg/dl Creatinine (0.6-1.2) mg/dl Est Cr Clr Drug Dosing ml/min Est GFR ( Amer) Est GFR (Non-Af Amer) BUN/Creatinine Ratio (10-20) Glucose (70-99) mg/dl Calcium (8.5-10.1) mg/dl C-Reactive Protein (0-0.29) mg/dl Blood Type O Positive Antibody Screen NEGATIVE Code Status & VTE Plan VTE Prophylaxis Plan VTE Prophylaxis will be ordered: Yes
--- NOTE | 2019-11-05 21:30 | XRay Report ---
XR knee LT 3V CLINICAL HISTORY: surgical planing, infection COMPARISON: 06/22/2019 DISCUSSION: There are postsurgical changes of a total left knee arthroplasty. No acute fractures are visualized. There is soft tissue swelling. There is a possible joint effusion. IMPRESSION: 1. Total left knee arthroplasty 2. No fractures identified 3. Soft tissue swelling. Possible joint effusion. ACT 112: Negative or not required by law. Electronically signed by: Kade Rayo M.D. 11/05/2019 9:28 PM
[2019-11-06] MEDS: SYNTHROID PO SCH (05:28)
[2019-11-06 05:45] LABS: Hematocrit (blood only) 31.1 % (37-47); Hemoglobin 9.8 g/dL (12.0-16.0); Mean Corpuscular Hemoglobin 25.5 pg (25-34); Mean Corpuscular Hgb Conc 31.5 g/dL (32-36); Mean Corpuscular Volume 80.8 fL (80-100); Mean Platelet Volume 8.9 fL (7.4-10.4); Platelet Count 502 K/uL (130-400); RDW Coefficient of Variation 16.9 % (11.5-14.5); RDW Standard Deviation 50.2 fL (36.4-46.3); Red Blood Count 3.85 M/uL (4.2-5.4)
[2019-11-06] MEDS ORDERED: ACETAMINOPHEN 325 MG TAB PO PRN (05:46)
[2019-11-06 06:13] LABS: BUN Creatinine Ratio 16.3 (10-20); Calcium 9.1 mg/dl (8.5-10.1); Creatinine Clr Calc Pharmacy 66.5 ml/min; Est GFR (African American) 60.8; Est GFR (Non-African American) 52.4; Potassium 4.1 mmol/L (3.5-5.1)
[2019-11-06 06:24] LABS: Ferritin 467.6 ng/ml (8-388); Thyroid Stimulating Hormone 4.26 uIu/ml (0.300-4.500)
--- NOTE | 2019-11-06 07:19 | Electrocardiogram Report ---
Test Reason : Blood Pressure : / mmHG Vent. Rate : 074 BPM Atrial Rate : 074 BPM P-R Int : 154 ms QRS Dur : 092 ms QT Int : 418 ms P-R-T Axes : 055 -17 039 degrees QTc Int : 463 ms Normal sinus rhythm Normal ECG When compared with ECG of 30-OCT-2018 08:29, Premature ventricular complexes are no longer Present Confirmed by Stanley Will ([id number]) on 11/06/2019 7:19:08 AM Referred By: Brien Beltran Confirmed By:Stanley Will
[2019-11-06] MEDS: PANTOprazole 40 MG TAB PO SCH (08:30)
[2019-11-06] MEDS ORDERED: DAPTOMYCIN CONSULT ACTIVE PRN (08:47)
--- NOTE | 2019-11-06 08:47 | Infectious Disease Consult ---
Date of Consultation November 06, 2019 Assessment & Plan (1) Infection of total left knee replacement: will start dapto, check blood cultures. for OR later today, await findings, culture results. will need prolonged, range of 6 weeks IV abx. final abx will be based on culture results. outpatient culture also reportedly + gpc, await final results. History of Present Illness Attending Physician: Brien Beltran DO pt admitted with increased pain and swelling left knee. had initial surgery on 03/30/19, had fall and repeat surgery with poly exchange on 07/02, was doing well until recently. was seen in office, joint aspirated and outpatient cultures growing gpc per ortho note. She was admitted with plans for spacer later today. she is afebrile and denies f/c at home. no abx currently. wbc 6, ESR >90, creat 1.1. CXR negative, knee x ray + swelling ? effusion. She is in moderate pain, states tylenol helps. had some purulent drainage from proximal incision this am, scab noted. denies bleeding or drainage at home. no abd pain, no n/v/d. no cp, sob cough. Allergies Allergy/AdvReac Type Severity Reaction Status Date / Time cephalexin Allergy Mild Hives Verified 11/05/19 13:19 blue dye AdvReac Intermediate Tachycardia Verified 06/22/19 06:53 adhesive tape AdvReac Mild SKIN Verified 06/22/19 06:53 BREAKS OUT oxycodone AdvReac Mild Nausea Verified 11/05/19 13:19 Penicillins AdvReac Mild yeast Verified 06/22/19 06:53 infection & upset stomach Home Medications Home Medications Medication Instructions Recorded Confirmed Type ergocalciferol (vitamin D2) 50,000 unit PO WK 10/27/18 11/05/19 History [Vitamin D2] esomeprazole magnesium [Nexium] 40 mg PO QAM 10/27/18 11/05/19 History levothyroxine [Synthroid] 75 mcg PO QAM 10/27/18 11/05/19 History ascorbic acid (vitamin C) [Vitamin 1,000 mg PO QAM 03/03/19 11/05/19 History C] oxycodone 5 mg PO Q6 PRN #30 cap MDD 6 06/23/19 11/05/19 Rx tablets Patient History Medical History GERD (gastroesophageal reflux disease) HSP (Henoch Schonlein purpura) Hypertension Hypothyroidism Obesity Osteoarthritis Premature ventricular contractions DETECTED WHILE BEING MONITORED FOR COLONOSCOPY 2017-NO ISSUES SINCE PER PT Surgical History H/O eye surgery LEFT ORBITAL REPAIR H/O foot surgery RT SIDE/BUNIONECTOMY AND HAMMER TOE CORRECTION History of colonoscopy History of dilatation and curettage History of esophagogastroduodenoscopy (EGD) History of hysterectomy History of left knee replacement Mar 2019 History of tooth extraction History of total knee replacement RIGHT -- 11/26/18, SAB + PNB both successful x 1 attempt Left: 03/30/2019: SAB with PNB and MAC. No issues. Nausea and vomiting after administration of anesthetic agent ALSO HAS BEEN SLOW TO WAKE UP IN THE PAST Family History Father Family history of diabetes mellitus Sister Family history of diabetes mellitus Social History Preferred Language: Wallisian Communication Ability: Effective Tan Room Supervisor Required: No Beliefs That Will Affect Care: None marital status: Current Living Situation: Spouse Other Information That Helps Us Care for You: No Feels Safe at Home: Yes Safety Concerns: Feels Safe At This Time Smoking Status: Never smoker Do You Dip or Chew Tobacco: No ; Second Hand Exposure: No ; Hx Alcohol Use: No Hx Substance Use: No Review of Systems Review of Systems: All systems reviewed & are unremarkable except as noted in HPI & below Physical Exam Constitutional: WD/WN, vitals as above Eyes: PERRL, conjunctivae normal, anicteric sclerae ENMT: external ear and nose normal, oropharynx normal Neck: normal visual inspection Respiratory: normal respiratory effort, lungs clear to auscultation Cardiovascular: RRR, no murmur, no edema Gastrointestinal (Abdomen): normal bowel sounds, soft, nontender, no hepatosplenomegaly Musculoskeletal: no cyanosis or clubbing, extremities motor strength 5/5 Skin: no rashes, warm and dry + wound (left knee edema, warm, tender, no drainage expressed) Psychiatric: A+Ox3, euthymic affect Results & Data ([facility]) Vital Signs (Past 12 Hours) Vital Signs Temp Pulse Resp BP Pulse Ox 11/06/19 08:13 36.7 C 63 18 155/88 H 98 11/05/19 23:00 36.7 C 71 20 131/81 98 PG Care Time/CCT Total # of Minutes Spent Total Time Spent with Patient: Total time spent is greater than 50% in coordination of care (as documented) at patient's floor/unit and/or counseling patient: Coding Level of Care Code 07173 Inpt Consult Level 4 Diagnoses Infection of total left knee replacement T84.54XA
[2019-11-06] MEDS: DAPTOmycin 400 MG in SYRINGE 0 ML IV SCH (10:04)
[2019-11-06] MEDS ORDERED: fentaNYL citrate 100 MCG/2 ML VIAL ONE ×4 (12:48→17:16)
[2019-11-06] MEDS ORDERED: MIDAZOLAM HCL 1 MG/ML 2ML VIAL ONE (12:49)
[2019-11-06] MEDS ORDERED: PROPOFOL IV EMULSION 10 MG/ML 20 ML VIAL IV ONE (12:53)
[2019-11-06] MEDS ORDERED: ONDANSETRON INJ 2 MG/ML 2 ML VIAL ONE ×2 (12:53→17:39)
[2019-11-06] MEDS ORDERED: LIDOCAINE HCL 2% 2 ML VIAL/AMP(20MG/ML) INFIL ONE (12:53)
[2019-11-06] MEDS ORDERED: BACITRACIN INJ 50,000 UNIT VIAL ONE ×3 (12:54→16:03)
--- NOTE | 2019-11-06 12:57 | Hospitalist Progress Note ---
Date of Service November 06, 2019 Assessment & Plan (1) Infection of left knee: - On Keflex/Bactrim as outpatient for presumed septic left knee joint, diagnosed on 10/29 by orthopedics. - Admitted for planned procedure, will go to the OR this afternoon. - ID consulted, currently on Daptomycin IV. - Pain management per primary team. - Recommend PT/OT post op for discharge planning. - EKG was negative; CXR negative. RCRI is 3.9%, low risk for surgery - recommend to proceed with operation today. (2) History of arthroplasty of left knee: - H/o Left TKA in March 2019; also required Left Knee Incision and Drainage, Poly Swap, Primary Quad Tendon Repair in June 2019. - Management per ortho as noted above. (3) GERD (gastroesophageal reflux disease): - PPI daily as inpatient. (4) Hypertension: - H/o, pt. reports she does not take anti-hypertensives at home. - BP has been intermittently elevated during this admission. (5) Hypothyroidism: - Continue home Synthroid 75 mcg daily (prefers brand name from home) - TSH 4.260. (6) Premature ventricular contractions: - H/o, PVCs are not present on exam. (7) Anemia: - Hgb below baseline on pre op value. Baseline hgb ~13.0. - Borderline microcytic - iron studies did not indicate underlying CHRISTOPHER. - Monitor CBC daily -- expect to trend down due to intra op blood loss and IV fluids. (8) Obesity: - BMI 32.6. - Encourage weight loss and exercise. (9) DVT prophylaxis: - SCDs; holding pharmacologic ppx for procedure. Dispo: Med/surg; will continue to follow. Admission and Anticipated Discharge Date Admission Date: November 05, 2019 Subjective Pt. is doing well. Has left knee swelling and mild pain. Plan for OR today. Review of Systems Review of Systems: All systems reviewed & are unremarkable except as noted in HPI & below Constitutional: + fatigue and + weakness; no fever, no chills and no anorexia Respiratory: no cough, no dyspnea and no dyspnea on exertion Cardiovascular: no chest pain, no palpitations and no edema Gastrointestinal: no abdominal pain, no nausea, no vomiting and no constipation Genitourinary: no difficulty urinating Musculoskeletal: + joint pain and + swelling; no back pain Integumentary: no non-healing lesions Physical Exam Physical Exam: General: Resting comfortably HEENT: NC/AT; PERRLA with EOMI; [place] conjunctiva, MMM. No erythema of posterior pharynx Neck: Supple and nontender Cardiac: RRR Lungs: CTA bilaterally Abdomen: Bowel normoactive X 4; Nontender to palpation Extremities: Warm. Moderate edema noted at site of left knee. Neuro: No focal weakness Skin: Mild erythema left knee. Results & Data ([facility]) Vital Signs (Past 12 Hours) Vital Signs Temp Pulse Resp BP Pulse Ox 11/06/19 08:13 36.7 C 63 18 155/88 H 98 Laboratory Results 11/06/19 11/06/19 11/05/19 Range/Units 04:55 04:55 15:11 WBC 6.00 (4.8-10.8) K/uL RBC 3.85 L (4.2-5.4) M/uL Hgb 9.8 L (12.0-16.0) g/dL Hct 31.1 L (37-47) % MCV 80.8 (80-100) fL MCH 25.5 (25-34) pg MCHC 31.5 L (32-36) g/dL RDW Std Deviation 50.2 H (36.4-46.3) fL RDW Coeff of Jovita 16.9 H (11.5-14.5) % Plt Count 502 H (130-400) K/uL MPV 8.9 (7.4-10.4) fL Immature Gran % (Auto) % Neut % (Auto) % Lymph % (Auto) % Kenton % (Auto) % Eos % (Auto) % Baso % (Auto) % Immature Gran # (Auto) (0.00-0.02) K/uL Neut # (Auto) (1.4-6.5) K/uL Lymph # (Auto) (1.2-3.4) K/uL Kenton # (Auto) (0.11-0.59) K/uL Eos # (Auto) (0-0.5) K/uL Baso # (Auto) (0-0.2) K/uL ESR (0-21) mm/hr Sodium 139 136 (136-145) mmol/L Potassium 4.1 4.0 (3.5-5.1) mmol/L Chloride 108 H 105 (98-107) mmol/L Carbon Dioxide 25 26 (21-32) mmol/L Anion Gap 6.0 5.0 (3-11) BUN 18 17 (7-18) mg/dl Creatinine 1.11 1.14 (0.6-1.2) mg/dl Est Cr Clr Drug Dosing 66.5 64.8 ml/min Est GFR ( Amer) 60.8 58.9 Est GFR (Non-Af Amer) 52.4 50.8 BUN/Creatinine Ratio 16.3 14.9 (10-20) Glucose 84 85 (70-99) mg/dl Calcium 9.1 9.5 (8.5-10.1) mg/dl Iron 41 (35-150) mcg/dl TIBC 195 L (250-450) mcg/dl Transferrin 163 L (200-360) mg/dl Transferrin % Sat 18 (15-50) % Ferritin 467.6 H (8-388) ng/ml C-Reactive Protein 6.09 H (0-0.29) mg/dl TSH 4.260 (0.300-4.500) uIu/ml Blood Type Antibody Screen 11/05/19 11/05/19 11/05/19 Range/Units 15:11 15:11 15:11 WBC 7.33 (4.8-10.8) K/uL RBC 3.88 L (4.2-5.4) M/uL Hgb 10.0 L (12.0-16.0) g/dL Hct 31.8 L (37-47) % MCV 82.0 (80-100) fL MCH 25.8 (25-34) pg MCHC 31.4 L (32-36) g/dL RDW Std Deviation 51.3 H (36.4-46.3) fL RDW Coeff of Jovita 16.8 H (11.5-14.5) % Plt Count 560 H (130-400) K/uL MPV 8.8 (7.4-10.4) fL Immature Gran % (Auto) 0.3 % Neut % (Auto) 55.2 % Lymph % (Auto) 34.5 % Kenton % (Auto) 7.0 % Eos % (Auto) 2.6 % Baso % (Auto) 0.4 % Immature Gran # (Auto) 0.02 (0.00-0.02) K/uL Neut # (Auto) 4.05 (1.4-6.5) K/uL Lymph # (Auto) 2.53 (1.2-3.4) K/uL Kenton # (Auto) 0.51 (0.11-0.59) K/uL Eos # (Auto) 0.19 (0-0.5) K/uL Baso # (Auto) 0.03 (0-0.2) K/uL ESR > 90 H (0-21) mm/hr Sodium (136-145) mmol/L Potassium (3.5-5.1) mmol/L Chloride (98-107) mmol/L Carbon Dioxide (21-32) mmol/L Anion Gap (3-11) BUN (7-18) mg/dl Creatinine (0.6-1.2) mg/dl Est Cr Clr Drug Dosing ml/min Est GFR ( Amer) Est GFR (Non-Af Amer) BUN/Creatinine Ratio (10-20) Glucose (70-99) mg/dl Calcium (8.5-10.1) mg/dl Iron (35-150) mcg/dl TIBC (250-450) mcg/dl Transferrin (200-360) mg/dl Transferrin % Sat (15-50) % Ferritin (8-388) ng/ml C-Reactive Protein (0-0.29) mg/dl TSH (0.300-4.500) uIu/ml Blood Type O Positive Antibody Screen NEGATIVE PG Care Time/CCT Total # of Minutes Spent Total Time Spent with Patient: Total time spent is greater than 50% in coordination of care (as documented) at patient's floor/unit and/or counseling patient: Coding Level of Care Code 43504 Subseq Hosp Care Lvl 3 Diagnoses Infection of left knee M00.9 History of arthroplasty of left knee Z96.652 GERD (gastroesophageal reflux disease) K21.9 Hypertension I10 Hypothyroidism E03.9 Premature ventricular contractions I49.3 Anemia D64.9 Obesity E66.9 DVT prophylaxis Z29.9
[2019-11-06] MEDS ORDERED: ONDANSETRON INJ 2 MG/ML 2 ML VIAL IV PRN ×2 (13:26→19:46)
[2019-11-06] MEDS ORDERED: ATROPINE SULFATE 0.1 MG/ML 10ML SYR IV PRN ×2 (13:26→18:48)
[2019-11-06] MEDS ORDERED: PHENYLEPHRINE 100MCG/ML 5ML SYR IV PRN (13:26)
[2019-11-06] MEDS ORDERED: ePHEDrine sulfate 50 MG/ML AMP IV PRN ×2 (13:26→18:48)
[2019-11-06] MEDS ORDERED: MEPERIDINE HCL 25 MG/ML CARP/VIAL IV PRN (13:26)
[2019-11-06] MEDS ORDERED: LABETALOL HCL IV 5 MG/ML 20ML IV PRN (13:26)
--- NOTE | 2019-11-06 13:33 | Anesthesiology Consultation ---
Date of Service November 06, 2019 Assessment & Plan (1) Encounter for pre-operative examination: Chart Review Chart Review: Acceptable Risk for Surgery and Patient NOT seen in Pre Admission Testing Consults Requested none History Surgery Operation Date: 11/06/19 13:30 Proposed Procedures p Left Knee Incision and Drainage, Explant with Insertion of Antibiotic Spacer - Brien Beltran DO Height/Weight Height: 5 ft 10 in Weight: 103 kg Allergies Allergy/AdvReac Type Severity Reaction Status Date / Time cephalexin Allergy Mild Hives Verified 11/05/19 13:19 blue dye AdvReac Intermediate Tachycardia Verified 06/22/19 06:53 adhesive tape AdvReac Mild SKIN Verified 06/22/19 06:53 BREAKS OUT oxycodone AdvReac Mild Nausea Verified 11/05/19 13:19 Penicillins AdvReac Mild yeast Verified 06/22/19 06:53 infection & upset stomach Medications Home Medications Medication Instructions Recorded Confirmed Last Taken ergocalciferol (vitamin D2) 50,000 unit PO WK 10/27/18 11/05/19 11/01/19 09:00 [Vitamin D2] esomeprazole magnesium [Nexium] 40 mg PO QAM 10/27/18 11/05/19 11/05/19 09:00 levothyroxine [Synthroid] 75 mcg PO QAM 10/27/18 11/05/19 11/05/19 07:00 ascorbic acid (vitamin C) [Vitamin 1,000 mg PO QAM 03/03/19 11/05/19 11/05/19 09:00 C] oxycodone 5 mg PO Q6 PRN #30 cap MDD 6 06/23/19 11/05/19 Unknown tablets Active Medications Generic Name Dose Route Start Last Admin Trade Name Freq PRN Reason Stop Dose Admin Acetaminophen 650 mg 11/06/19 05:46 11/06/19 06:03 Tylenol PO 12/06/19 05:45 650 mg Q4H PRN Administration Pain Sodium Chloride 1,000 mls @ 15 mls/hr 11/05/19 14:45 11/05/19 22:21 Nss 1000ml IV 12/05/19 14:44 15 mls/hr .Q24H GITA Infusion Daptomycin 400 mg/ Syringe 8 mls @ 2.75 mls/min 11/06/19 09:00 11/06/19 10:04 IV 12/18/19 08:59 2.75 mls/min Q24H GITA Administration Protocol *Synthroid*Non- 1 ea 11/06/19 06:30 11/06/19 05:28 Formulary Patient's PO 12/06/19 00:00 75 mcg Own Med DAILYBB GITA Administration Pantoprazole Sodium 40 mg 11/06/19 09:00 11/06/19 08:30 Protonix PO 12/06/19 08:59 40 mg QAM GITA Administration NPO Date Last Intake of Fluids: 11/05/19 Time Last Intake of Fluids: 21:00 Date Last Intake of Solids: 11/05/19 Time Last Intake of Solids: 18:00 Past Medical History Medical History Anemia GERD (gastroesophageal reflux disease) HSP (Henoch Schonlein purpura) Hypertension Hypothyroidism Obesity Osteoarthritis Premature ventricular contractions DETECTED WHILE BEING MONITORED FOR COLONOSCOPY 2017-NO ISSUES SINCE PER PT Past Family History Family History Father Family history of diabetes mellitus Sister Family history of diabetes mellitus Past Surgical History Surgical History H/O eye surgery LEFT ORBITAL REPAIR H/O foot surgery RT SIDE/BUNIONECTOMY AND HAMMER TOE CORRECTION History of colonoscopy History of dilatation and curettage History of esophagogastroduodenoscopy (EGD) History of hysterectomy History of left knee replacement Mar 2019 History of tooth extraction History of total knee replacement RIGHT -- 11/26/18, SAB + PNB both successful x 1 attempt Left: 03/30/2019: SAB with PNB and MAC. No issues. Nausea and vomiting after administration of anesthetic agent ALSO HAS BEEN SLOW TO WAKE UP IN THE PAST Social History Smoking Status: Never smoker Do You Dip or Chew Tobacco: No Hx Alcohol Use: No Hx Substance Use: No substance use type: does not use Physical Exam Vital Signs Last Vital Signs Temp 36.7 C 11/06/19 08:13 Pulse 63 11/06/19 08:13 Resp 18 11/06/19 08:13 BP 155/88 H 11/06/19 08:13 Pulse Ox 98 11/06/19 08:13 Testing Laboratory Results 11/06/19 04:55 11/06/19 04:55 Blood Type O Positive 11/05/19 15:11 Antibody Screen NEGATIVE 11/05/19 15:11 Electrocardiogram Date: 11/05/19 Findings: + NSR @ (74) Chest X-Ray Date: 11/05/19 XR chest 2V PA/lateral CLINICAL HISTORY: Preoperative chest COMPARISON STUDY: 10/30/2018 FINDINGS: The cardiac and mediastinal contours are normal. There is no evidence of focal pulmonary consolidation. There is no evidence of failure. No pleural effusions are visualized.[ IMPRESSION: No active disease in the chest. ACT 112: Negative or not required by law. Electronically signed by: Kade Rayo M.D. 11/05/2019 4:20 PM Dictated: 11/05/19 [id number]
[2019-11-06] MEDS ORDERED: VANCOMYCIN CONSULT ACTIVE PRN (13:40)
--- NOTE | 2019-11-06 13:41 | History & Physical Bridge Note ---
Date of Service November 06, 2019 History & Physical Bridge Note I have examined the patient, reviewed the History & Physical and in the interval since the performance of the History & Physical I have noted the following changes of clinical significance: no changes noted
[2019-11-06] MEDS ORDERED: VANCOMYCIN HCL 1,500 MG in SODIUM CHLORIDE 0.9% 500 ML IV SCH (13:45)
[2019-11-06] MEDS ORDERED: VANCOMYCIN HCL 1000MG/20ML VIAL ONE ×2 (14:07→16:30)
[2019-11-06] MEDS ORDERED: ePHEDrine sulfate 50 MG/ML AMP ONE (14:16)
[2019-11-06] MEDS ORDERED: HYDROmorphone INJ 2 MG/ML SYR/VIAL ONE (14:29)
[2019-11-06] MEDS ORDERED: PHENYLEPHRINE 100MCG/ML 5ML SYR ONE (15:28)
[2019-11-06] MEDS ORDERED: PHENYLEPHRINE HCL 10 MG/ML VIAL ONE (15:59)
--- NOTE | 2019-11-06 17:30 | Post Operative Brief Note ---
Immediate Post Op Note v1 Date of Surgery November 06, 2019 Pre & Post Diagnosis Operation Date: 11/06/19 13:30 Pre-Op Diagnosis: LEFT KNEE INFECTION (NON DRAINING) Post-Op Diagnosis: LEFT KNEE INFECTION (NON DRAINING) I identified the patient and participated in the time-out.: Yes Procedure Operation Date: 11/06/19 13:30 Actual Procedures p Left Knee Incision and Drainage, Explant with Insertion of Antibiotic Spacer(Left) - Brien Beltran DO Surgeon Brien Beltran DO [employer] Jaime Holt Estimated Blood Loss 375 Findings Consistent with Post-Op Diagnosis Fluids 1500 cc LR Specimens culture swabs x4 deep tissue cultures x 2 deep Drains Hemovac Drain (dual round drain) Anesthesia Type General Disposition Disposition: Recovery Room Overlapping Procedure I was present for: the critical portions of procedure. I was immediately available: during the entire case. Back up surgeon: was not required during procedure.
--- NOTE | 2019-11-06 17:33 | Operative Report ---
Post Operative Report Pre & Post Diagnosis Operation Date: 11/06/19 13:30 Pre-Op Diagnosis: LEFT KNEE INFECTION (NON DRAINING) Post-Op Diagnosis: LEFT KNEE INFECTION (NON DRAINING) I identified the patient and participated in the time-out.: Yes Procedure Operation Date: 11/06/19 13:30 Actual Procedures p Left Knee Incision and Drainage, Explant with Insertion of Antibiotic Spacer(Left) - Brien Beltran DO Surgeon Brien Beltran DO Drama Therapist Jaime Holt Estimated Blood Loss 375 Findings Consistent with Post-Op Diagnosis Fluids 1500 cc LR Specimens Culture swabs x4 deep Tissue culture x2 deep Drains HMV drain deep to fascia Anesthesia Type General Complications none Disposition Disposition: Recovery Room Indications Patient is a 64-year-old female with PSHx for Left TKA performed 03/30/19. The patient did well post operatively however sustained a mechanical fall and a dehiscence of her surgical incision and quad tendon rupture. She underwent I+D, poly exchange and primary quad tendon repair on 06/22/19. The patient states she started developing a rash medial and lateral to her incision shortly after her l ast office appointment which was on 10/21/19. She was seen by her PCP on 10/30/19 and inflammatory labs drawn. Inflammatory labs were concerning for infectious process and the patient was asked to go to the ER however due to Coronavirus concern she elected to follow up in the office. The patient was seen in the office on 11/02/19 and arthrocentesis was performed and sent for Synovasure fluid analysis. Results positive alpha-defensins, CC 5800, Neuts 92.5%, culture showing gram positive cocci. The patient was directly admitted on 11/05/19 for medical optimization and surgery. I have indicated the patient for I+D, explant left total knee replacement, placement of antibiotic cement spacer. The risks, benefits and complications of surgery were explained to the patient which include but not limited to infection, acute blood loss, DVT/PE, injury to nerves, vessels, bone, soft tissue, arthrofibrosis, chronic pain, failure of the prosthesis, knee dislocation, leg length discrepancy, need for additional surgery, cardiac and pulmonary events and . Patient wished to proceed with surgery at this time and informed consent was obtained. ID started patient on Daptomycin pre-operatively. Description of Procedure Components used: [employer]: Vanguard 10x71/75 PS + poly, 67.5 L PS trial femur, Palacos G cement with 3g Vancomycin per packet. Following induction of general anesthesia, a tourniquet was applied to the proximal aspect of the thigh and the patient's left leg was prepped and draped in the usual sterile manner. A timeout was performed and site mary beth verified. Appropriate IV antibiotics were verified and given. Limb was Elevated for 5 minutes and tourniquet was inflated to 300 mmHg. The prior incision was identified and a longitudinal midline incision was made over the anterior knee. Subcutaneous tissue was sharply dissected down to fascia. Electrocautery was used for hemostasis. Next a medial parapatellar arthrotomy was performed. Two cultures of synovial fluid was obtained. I identified thickened chronically inflamed synovial tissue deep to the fascia. Meticulous removal of hypertrophic synovium and scar tissue was removed with Bovie. Synovial tissue samples were sent for GS/culture at this time. We identified an abscess collection in the medial quad tendon and synovial tissue. This was decompressed and debrided. Two additional culture swabs were obtained. The patella was subluxed laterally and the knee was flexed. A carrero retractor was used to expose the synovium above on the anterior aspect of the femur and removed down to bone. Next, the anterior fat pad was removed to aid in visualization. The medial face of the tibia was cleared of soft tissue first with a bovie and a hill elevator. This tissue was retracted posteriorly using a blunt hohmann. Once adequate access was obtained to the total knee prosthesis we removed the tibial articular surface. Next we turned our attention to the femoral component and utilizing a microsagittal saw loosen the interface between the distal femur component and cement followed by flexible osteotomes. Backslapping distal femur extraction instrument was utilized to remove the distal femur, there was minimal bone loss. Meticulous removal of residual cement from the bone was performed. A second tissue sample was collected from the distal femur bone/metal interface at this time and sent for GS/culture. Next we turned our attention to the proximal tibia and utilizing the microsagittal saw the tibial component and cement interface was disrupted followed by flexible osteotomes. Utilizing to flat wide osteotomes we were able to lever the component out of the bone. Once again there was minimal bone loss. The tourniquet was dropped at this time at 60 minutes. Next we meticulously removed remaining cement and cleared the distal femur proximal tibia and any remaining soft tissue. Additional tissue sample was collected from the proximal tibia bone/metal interface at this time and sent for GS/culture. We gained access to both the intramedullary tibia and femur and intramedullary membrane was scraped with curved curettes. Access was gained to the patella and meticulous removal of fibrous soft tissue surrounding the patella button was performed. The patella button was removed with saw and peg holes cleared of debris. An extensive debridement of the knee soft tissue and bone interface was performed at this time with Versajet. Any retained suture was removed. We were satisfied when only healthy soft tissue remained. Carefully we inspected previous quad tendon repair which was intact. Aquamantys was utilized for any bleeders. The knee was irrigated with 6L of sterile saline solution mixed with bacitracin followed by a betadine soak for 3 minutes. The leg was elevated for 5 minutes and tourniquet inflated once again at this time. Additional irrigation with 3L of sterile saline solution mixed with bacitracin was performed. Access to the knee was once again obtained utilizing two bent hohmann retractors and the proximal tibia and distal femur were dried with lap sponges. Palacos G cement with 3 g of vancomycin per Palacos packet was was mixed for cementing process. We allowed for the cement to get doughy and proceeded to cement in place the femur component. Once hardened a second batch of Palacos G Cement was mixed with 3g of vancomycin per packet. Once cement was doughy, we cemented in the tibial articulating surface. Care was taken to remove excess cement and allow adequate time for cement to hardened to restore the joint height. The knee was extended carefully and traction held in place until cement hardened completely. All excess cement was removed. Once the cement had hardened knee stability was once again assessed. The articulating spacer gave good fit and fill of the joint space with adequate stability at all degrees of range of m otion. The knee was once more irrigated with 3L of sterile saline solution, 12 L and total for the case. Hemovac drains 2 were inserted deep to the capsule. The capsulotomy was closed with 1-0 PDS followed by subcutaneous closure with 3- 0 PDS suture. Skin closure was performed using [place], sterile dressings were applied which included lina, 4x4s ABDs, hmv drain sponge and adali wrap. The to urniquet was deflated at this time at 133 minutes. The knee was placed in a immobilizer. The patient was extubated in the OR and transported to the PACU in stable condition. Due to the complex nature of the procedure, the entire surgery was performed with the operational assistance of Jaime Holt PA-C. The therapy administrative assistant, under direct supervision, was involved in the actual performance of all aspects of the surgical procedure including patient positioning, hemostasis, tissue retraction, instrument management and wound closure. I attest to the content of the Intraoperative Record and any orders documented therein. Any exceptions are noted below.
--- NOTE | 2019-11-06 18:10 | Orthopedic Progress Note ---
Date of Service November 06, 2019 Assessment & Plan (1) Infection of total left knee replacement: s/p Explant left total knee, I+D, placement of articulating antibiotic cement spacer -Daptomycin -DVT ppx: SCDs, TEDs, Lovenox -PWB LLE -Monitor HMV drain output -Maintain KI at all times -PT/OT -PO XR pending -am labs -DC planning Admission and Anticipated Discharge Date Admission Date: November 05, 2019 Subjective Post Operative Progress Note Patient seen in recovery, comfortable, denies complaints, pain well controlled, no acute issues. Still waking up from anesthesia Review of Systems Review of Systems: All systems reviewed & are unremarkable except as noted in HPI & below Constitutional: as per Subjective / HPI Physical Exam Physical Exam: LLE NVSI +EHL/FHL/TA/GS SILT grossly, +2 DP pulse, compartments soft NT, dressing cdi. HMV drain intact Constitutional: WD/WN, vitals as above Results & Data ([facility]) Vital Signs (Past 12 Hours) Vital Signs Temp Pulse Resp BP Pulse Ox 11/06/19 08:13 36.7 C 63 18 155/88 H 98
[2019-11-06] MEDS: fentaNYL citrate 100 MCG/2 ML VIAL IV PRN ×4 (18:24→18:39)
[2019-11-06] MEDS: HYDROmorphone INJ 1 MG/ML SYRINGE IV PRN ×4 (18:44→18:59)
[2019-11-06] MEDS ORDERED: PROMETHAZINE HCL 12.5 MG in SODIUM CHLORIDE 0.9% 50 ML IV PRN (18:48)
--- NOTE | 2019-11-06 19:00 | XRay Report ---
XR knee LT 1 or 2V routine HISTORY: 64 years-old Female Surgical Post Op [knee total joint arthroplasty COMPARISON: Left knee radiographs 11/05/2019 TECHNIQUE: 2 views of the left knee FINDINGS: Postoperative changes of left knee total joint arthroplasty with revision of the tibial component. Th e tibial component appears to be comprised of radiopaque cement-like material. Satisfactory alignment without acute fracture or retained foreign body. Anterior midline skin michael are noted along with expected postoperative swelling with deep tissue air and surgical drainage catheter. IMPRESSION: Expected postoperative findings as above. ACT 112: Negative or not required by law. The above report was generated using voice recognition software. It may contain grammatical, syntax o r spelling errors. Electronically signed by: Sea Antunez M.D. 11/06/2019 6:59 PM
[2019-11-06] MEDS: SODIUM CHLORIDE 0.9% 1000ML 1,000 ML IV SCH ×2 (19:35→19:59)
[2019-11-06] MEDS ORDERED: NALOXONE HCL 0.4 MG/1 ML VIAL/CARP IV PRN (19:46)
[2019-11-06] MEDS ORDERED: bisacodyL 10 MG SUPP PR PRN (19:46)
[2019-11-06] MEDS ORDERED: MAGNESIUM HYDROXIDE SUSP 30 ML UDC PO PRN (19:46)
[2019-11-06] MEDS ORDERED: METOCLOPRAMIDE HCL INJ 5 MG/ML 2 ML VIAL IV PRN (19:46)
--- NOTE | 2019-11-06 20:15 | Anesthesiology Progress Note ---
Date of Service November 06, 2019 Anesthesia Post Procedure Vital Signs Vital Signs: Temp Pulse Pulse Pulse Resp BP Pulse Ox 11/06/19 20:08 36.5 C 84 16 115/75 100 11/06/19 19:35 36.4 C L 84 16 110/76 100 11/06/19 19:27 36.4 C L 96 H 18 101/66 98 11/06/19 19:15 94 H 16 105/70 99 11/06/19 19:05 94 H 18 105/70 98 11/06/19 18:55 91 H 18 116/77 98 11/06/19 18:45 93 H 17 108/79 100 11/06/19 18:35 94 H 16 127/82 99 11/06/19 18:25 92 H 15 136/99 100 11/06/19 18:17 36.8 C 98 H 15 135/93 98 11/06/19 08:13 36.7 C 63 18 155/88 H 98 11/05/19 23:00 36.7 C 71 20 131/81 98 Pain Intensity Left Upper Knee: Pain Intensity: 2 Left Knee: Pain Intensity: 8 Transfer of Care Handoff Completed per policy Notes Mental Status: alert / awake / arousable and participated in evaluation Patient Amnestic to Procedure: Yes Nausea / Vomiting: adequately controlled Pain: adequately controlled Airway Patency, RR, SpO2: stable & adequate BP & HR: stable & adequate Hydration State: stable & adequate Anesthetic Complications: no major complications apparent and Pt Satisfied with anesthetic care
[2019-11-06] MEDS: SENNA 8.6 MG TAB PO SCH (21:11)
[2019-11-06] MEDS: DOCUSATE SODIUM 100 MG CAP PO SCH (21:11)
[2019-11-06] MEDS: ACETAMINOPHEN 500 MG TAB PO SCH (21:11)
[2019-11-06] MEDS: ONDANSETRON INJ 2 MG/ML 2 ML VIAL IV PRN (21:15)
[2019-11-06] MEDS: HYDROmorphone INJ 0.5 MG/0.5 ML SYR IV PRN (22:48)
[2019-11-07] MEDS: TRAMADOL HCL 50 MG TABLET PO PRN ×4 (00:04→23:38)
[2019-11-07] MEDS: ONDANSETRON INJ 2 MG/ML 2 ML VIAL IV PRN (02:54)
[2019-11-07] MEDS: HYDROmorphone INJ 0.5 MG/0.5 ML SYR IV PRN (02:54)
[2019-11-07 05:40] LABS: Hematocrit (blood only) 23.6 % (37-47); Hemoglobin 7.3 g/dL (12.0-16.0); Mean Corpuscular Hemoglobin 25.4 pg (25-34); Mean Corpuscular Hgb Conc 30.9 g/dL (32-36); Mean Corpuscular Volume 82.2 fL (80-100); Mean Platelet Volume 8.6 fL (7.4-10.4); Platelet Count 446 K/uL (130-400); RDW Coefficient of Variation 16.8 % (11.5-14.5); RDW Standard Deviation 50.6 fL (36.4-46.3); Red Blood Count 2.87 M/uL (4.2-5.4); White Blood Count 10.85 K/uL (4.8-10.8)
[2019-11-07] MEDS: ACETAMINOPHEN 500 MG TAB PO SCH ×3 (05:49→21:40)
[2019-11-07] MEDS: SYNTHROID PO SCH (05:49)
[2019-11-07] MEDS: SODIUM CHLORIDE 0.9% 1000ML 1,000 ML IV SCH (05:50)
[2019-11-07 06:10] LABS: BUN Creatinine Ratio 18.6 (10-20); Calcium 8.3 mg/dl (8.5-10.1); Creatinine Clr Calc Pharmacy 58.6 ml/min; Est GFR (African American) 52.1; Potassium 4.6 mmol/L (3.5-5.1)
[2019-11-07] MEDS ORDERED: SODIUM CHLORIDE 0.9% 250 ML IV PRN ×2 (07:39→10:36)
[2019-11-07] MEDS: MULTIVITAMIN TAB PO SCH (08:44)
[2019-11-07] MEDS: PANTOprazole 40 MG TAB PO SCH (08:44)
[2019-11-07] MEDS: ENOXAPARIN INJ 40 MG/0.4 ML SYR SQ SCH (08:44)
[2019-11-07] MEDS: DOCUSATE SODIUM 100 MG CAP PO SCH ×2 (08:44→21:40)
[2019-11-07] MEDS: DAPTOmycin 400 MG in SYRINGE 0 ML IV SCH (08:53)
[2019-11-07] MEDS ORDERED: NON-FORMULARY MEDICATION (Esomeprazole Magnesium [Nexium] 40 MG) PO SCH (09:00)
--- NOTE | 2019-11-07 09:13 | Orthopedic Progress Note ---
Date of Service November 07, 2019 Assessment & Plan (1) Infection of total left knee replacement: 64 yo female stable POD #1 s/p left TKA excisional arthroplasty, placement abx spacer 1. Med management- acute blood loss anemia, VSS; will need PICC line, currently on IV Dapto 2. DVT prophylaxis- Lovenox, SCDs 3. PT/OT 4. D/C planning- will need 6 weeks IV abx, SS to determine where pt can get home/outpt IVs Admission and Anticipated Discharge Date Admission Date: November 05, 2019 Supervising Physician Co-Signing Physician Notes Post Operative Progress Note Patient seen sitting up in bed, comfortable, denies complaints, pain well controlled, no acute issues. LLE NVSI +EHL/FHL/TA/GS SILT grossly, +2 DP pulse, compartments soft NT, dressing cdi. HMV drain intact, KI in place A/P s/p explant L TKA, I+D, placement of articulating spacer -Daptomycin -Lovenox -PWB LLE -Maintain KI -Maintain HMV -ID recs apprecaited -I/O cultures 11/22 + staph aureus, sensitivities pending -PICC ordered, consent in chart -am labs: hgb 7.3, patient receiving 1 unit PRBC -DC planning - home with HH Subjective Pt resting in bed, denies complaints, states moderate pain Denies F/C/N/V/SOB/CP. Review of Systems Review of Systems: All systems reviewed & are unremarkable except as noted in HPI & below Constitutional: as per Subjective / HPI Physical Exam Physical Exam: Knee immobilizer in place, dressing and drain in place Constitutional: WD/WN, vitals as above Results & Data ([place]) Vital Signs (Past 12 Hours) Vital Signs Temp Pulse Resp BP Pulse Ox 11/07/19 06:59 36.6 C 75 16 110/69 97 11/07/19 03:45 36.3 C L 89 16 112/71 97 11/06/19 23:43 36.3 C L 90 22 107/72 99 11/06/19 22:37 36.3 C L 91 H 16 104/68 100 11/06/19 21:26 36.8 C 92 H 16 116/80 100 Laboratory Results 11/07/19 11/07/19 11/05/19 Range/Units 05:13 05:13 15:11 WBC 10.85 H (4.8-10.8) K/uL RBC 2.87 L (4.2-5.4) M/uL Hgb 7.3 L (12.0-16.0) g/dL Hct 23.6 L (37-47) % MCV 82.2 (80-100) fL MCH 25.4 (25-34) pg MCHC 30.9 L (32-36) g/dL RDW Std Deviation 50.6 H (36.4-46.3) fL RDW Coeff of Jovita 16.8 H (11.5-14.5) % Plt Count 446 H (130-400) K/uL MPV 8.6 (7.4-10.4) fL Sodium 137 (136-145) mmol/L Potassium 4.6 (3.5-5.1) mmol/L Chloride 107 (98-107) mmol/L Carbon Dioxide 23 (21-32) mmol/L Anion Gap 7.0 (3-11) BUN 23 H (7-18) mg/dl Creatinine 1.26 H (0.6-1.2) mg/dl Est Cr Clr Drug Dosing 58.6 ml/min Est GFR ( Amer) 52.1 Est GFR (Non-Af Amer) 45.0 BUN/Creatinine Ratio 18.6 (10-20) Glucose 156 H (70-99) mg/dl Calcium 8.3 L (8.5-10.1) mg/dl Blood Type O Positive Antibody Screen NEGATIVE Crossmatch See Detail Microbiology 11/06/19 14:21 Gram Stain - Final Knee,Left 11/06/19 14:25 Gram Stain - Final Knee,Left 11/06/19 14:27 Gram Stain - Final Knee,Left 11/06/19 14:28 Gram Stain - Final Knee,Left 11/06/19 14:22 Gram Stain - Final Knee,Left 11/06/19 14:19 Gram Stain - Final Knee,Left
[2019-11-07] MEDS ORDERED: SODIUM CHLORIDE 0.9% 1000ML 1,000 ML IV SCH (09:45)
--- NOTE | 2019-11-07 10:03 | Hospitalist Progress Note ---
Date of Service November 07, 2019 Assessment & Plan (1) Infection of left knee: - On Keflex/Bactrim as outpatient for presumed septic left knee joint, diagnosed on 10/29 by orthopedics. - S/p left TKA excisional arthroplasty, placement abx spacer on 11/05; POD#1. - ID consulted, will need Daptomycin IV x 6 weeks at home. - Pain management per primary team. - PT/OT for discharge planning. (2) History of arthroplasty of left knee: - H/o Left TKA in March 2019; also required Left Knee Incision and Drainage, Poly Swap, Primary Quad Tendon Repair in June 2019. - Management per ortho as noted above. (3) Dehydration: - Elevated BUN/Cr noted on morning labs - likely related to dehydration. - NS at 80 cc/hr x 1 bag. - Repeat BMP in the morning. (4) Anemia: - Hgb trended down, is 7.3 this morning; Baseline hgb ~13.0. - Borderline microcytic - iron studies did not indicate underlying CHRISTOPHER. - Pt. was symptomatic with sitting at side of bed during OT session -- will transfuse 1 unit pRBCs. - Monitor CBC daily; no evidence of active bleeding, likely related to acute blood loss anemia and partially dilutional. (5) GERD (gastroesophageal reflux disease): - PPI daily as inpatient. (6) Hypertension: - H/o, pt. reports she does not take anti-hypertensives at home. - BP has been intermittently elevated. (7) Hypothyroidism: - Continue home Synthroid 75 mcg daily (prefers brand name from home) - TSH 4.260. (8) Premature ventricular contractions: - H/o, PVCs not present on exam. (9) Obesity: - BMI 32.6. - Encourage weight loss and exercise. (10) DVT prophylaxis: - SCDs; Lovenox 40 mg subQ daily. Dispo: Med/surg; will continue to follow, please call with any questions. Case management is aware of home needs, will verify cost of Daptomycin IV with home health. Admission and Anticipated Discharge Date Admission Date: November 05, 2019 Subjective Pt. is doing well overall. She has pain in left knee post op, increased after working with PT this morning. She is passing gas, no BM yet. Is voiding without difficulty. H/H trending down. Creatinine mildly elevated. Review of Systems Review of Systems: All systems reviewed & are unremarkable except as noted in HPI & below Constitutional: + fatigue and + weakness; no fever, no chills and no anorexia Respiratory: no cough, no dyspnea and no dyspnea on exertion Cardiovascular: no chest pain, no palpitations and no edema Gastrointestinal: + constipation; no abdominal pain, no nausea and no vomiting Genitourinary: no difficulty urinating Musculoskeletal: + joint pain and + swelling; no back pain Integumentary: no non-healing lesions Physical Exam Physical Exam: General: Resting comfortably HEENT: NC/AT; PERRLA with EOMI; [place] conjunctiva, MMM. No erythema of posterior pharynx Neck: Supple and nontender Cardiac: RRR Lungs: CTA bilaterally Abdomen: Bowel normoactive X 4; Nontender to palpation Extremities: Warm. Left knee with dressing in place, appears edematous. Neuro: No focal weakness Skin: No rash Results & Data ([facility]) Vital Signs (Past 12 Hours) Vital Signs Temp Pulse Resp BP Pulse Ox 11/07/19 06:59 36.6 C 75 16 110/69 97 11/07/19 03:45 36.3 C L 89 16 112/71 97 11/06/19 23:43 36.3 C L 90 22 107/72 99 11/06/19 22:37 36.3 C L 91 H 16 104/68 100 Laboratory Results 11/07/19 11/07/19 11/05/19 Range/Units 05:13 05:13 15:11 WBC 10.85 H (4.8-10.8) K/uL RBC 2.87 L (4.2-5.4) M/uL Hgb 7.3 L (12.0-16.0) g/dL Hct 23.6 L (37-47) % MCV 82.2 (80-100) fL MCH 25.4 (25-34) pg MCHC 30.9 L (32-36) g/dL RDW Std Deviation 50.6 H (36.4-46.3) fL RDW Coeff of Jovita 16.8 H (11.5-14.5) % Plt Count 446 H (130-400) K/uL MPV 8.6 (7.4-10.4) fL Sodium 137 (136-145) mmol/L Potassium 4.6 (3.5-5.1) mmol/L Chloride 107 (98-107) mmol/L Carbon Dioxide 23 (21-32) mmol/L Anion Gap 7.0 (3-11) BUN 23 H (7-18) mg/dl Creatinine 1.26 H (0.6-1.2) mg/dl Est Cr Clr Drug Dosing 58.6 ml/min Est GFR ( Amer) 52.1 Est GFR (Non-Af Amer) 45.0 BUN/Creatinine Ratio 18.6 (10-20) Glucose 156 H (70-99) mg/dl Calcium 8.3 L (8.5-10.1) mg/dl Blood Type O Positive Antibody Screen NEGATIVE Crossmatch See Detail PG Care Time/CCT Total # of Minutes Spent Total Time Spent with Patient: Total time spent is greater than 50% in coordination of care (as documented) at patient's floor/unit and/or counseling patient: Coding Level of Care Code 57358 Subseq Hosp Care Lvl 3 Diagnoses Infection of left knee M00.9 History of arthroplasty of left knee Z96.652 Dehydration E86.0 Anemia D64.9 GERD (gastroesophageal reflux disease) K21.9 Hypertension I10 Hypothyroidism E03.9 Premature ventricular contractions I49.3 Obesity E66.9 DVT prophylaxis Z29.9
[2019-11-07] MEDS: SENNA 8.6 MG TAB PO SCH (21:39)
[2019-11-08 06:01] LABS: Hemoglobin 6.7 g/dL (12.0-16.0); Mean Corpuscular Hemoglobin 26.4 pg (25-34); Mean Corpuscular Hgb Conc 31.9 g/dL (32-36); Mean Corpuscular Volume 82.7 fL (80-100); Mean Platelet Volume 8.7 fL (7.4-10.4); Platelet Count 356 K/uL (130-400); RDW Coefficient of Variation 16.5 % (11.5-14.5); RDW Standard Deviation 50.7 fL (36.4-46.3); Red Blood Count 2.54 M/uL (4.2-5.4); White Blood Count 6.98 K/uL (4.8-10.8)
[2019-11-08] MEDS ORDERED: SODIUM CHLORIDE 0.9% 250 ML IV PRN ×2 (06:04→07:31)
[2019-11-08] MEDS: SYNTHROID PO SCH (06:21)
[2019-11-08] MEDS: ACETAMINOPHEN 500 MG TAB PO SCH ×3 (06:22→21:22)
[2019-11-08] MEDS: TRAMADOL HCL 50 MG TABLET PO PRN ×2 (06:23→11:24)
[2019-11-08 06:24] LABS: Basophils # (auto) 0.03 K/uL (0-0.2); Basophils % (auto) 0.4 %; Eosinophils # (auto) 0.21 K/uL (0-0.5); Hypochromasia Present; Immature Granulocytes # (auto) 0.01 K/uL (0.00-0.02); Immature Granulocytes % (auto) 0.1 %; Lymphocytes # (auto) 2.29 K/uL (1.2-3.4); Lymphocytes % (auto) 32.8 %; Monocytes # (auto) 0.49 K/uL (0.11-0.59); Neutrophils # (auto) 3.95 K/uL (1.4-6.5); Neutrophils % (auto) 56.7 %
[2019-11-08 06:42] LABS: BUN Creatinine Ratio 15.8 (10-20); Calcium 8.2 mg/dl (8.5-10.1); Creatinine Clr Calc Pharmacy 87.9 ml/min; Est GFR (African American) 85.1; Est GFR (Non-African American) 73.4; Potassium 3.8 mmol/L (3.5-5.1)
[2019-11-08] MEDS: DOCUSATE SODIUM 100 MG CAP PO SCH ×2 (08:30→21:22)
[2019-11-08] MEDS: PANTOprazole 40 MG TAB PO SCH (08:30)
[2019-11-08] MEDS: MULTIVITAMIN TAB PO SCH (08:30)
[2019-11-08] MEDS: ENOXAPARIN INJ 40 MG/0.4 ML SYR SQ SCH (08:31)
--- NOTE | 2019-11-08 09:11 | Orthopedic Progress Note ---
Date of Service November 08, 2019 Assessment & Plan (1) Infection of total left knee replacement: 64 yo female stable POD #2 s/p left TKA excisional arthroplasty, placement abx, S Aureus on culture, sensitivities pending; acute blood loss anemia, currently being transfused 1. Med management- PICC line in place, IV Dapto 2. DVT prophylaxis- Lovenox, SCDs 3. PT/OT 4. D/C planning- SS to determine home vs outpt IV abx x 6 weeks Admission and Anticipated Discharge Date Admission Date: November 05, 2019 Subjective Pt resting in bed, denies pain or complaints, pt receiving transfusion Physical Exam Physical Exam: Dressing/drain in place, knee immobilizer in place, toes SHANDRA morales Results & Data ([facility]) Vital Signs (Past 12 Hours) Vital Signs Temp Pulse Pulse Resp BP BP Pulse Ox 11/08/19 08:55 37.0 C 73 18 131/72 99 11/08/19 08:07 36.7 C 76 18 128/78 98 11/08/19 07:50 36.7 C 74 18 125/81 97 11/08/19 06:48 36.7 C 72 18 130/77 99 11/07/19 23:55 36.8 C 71 16 115/66 97 Laboratory Results 11/08/19 11/08/19 11/05/19 Range/Units 05:19 05:19 15:11 WBC 6.98 (4.8-10.8) K/uL RBC 2.54 L (4.2-5.4) M/uL Hgb 6.7 L* (12.0-16.0) g/dL Hct 21.0 L (37-47) % MCV 82.7 (80-100) fL MCH 26.4 (25-34) pg MCHC 31.9 L (32-36) g/dL RDW Std Deviation 50.7 H (36.4-46.3) fL RDW Coeff of Jovita 16.5 H (11.5-14.5) % Plt Count 356 (130-400) K/uL MPV 8.7 (7.4-10.4) fL Immature Gran % (Auto) 0.1 % Neut % (Auto) 56.7 % Lymph % (Auto) 32.8 % [place] % (Auto) 7.0 % Eos % (Auto) 3.0 % Baso % (Auto) 0.4 % Immature Gran # (Auto) 0.01 (0.00-0.02) K/uL Neut # (Auto) 3.95 (1.4-6.5) K/uL Lymph # (Auto) 2.29 (1.2-3.4) K/uL [place] # (Auto) 0.49 (0.11-0.59) K/uL Eos # (Auto) 0.21 (0-0.5) K/uL Baso # (Auto) 0.03 (0-0.2) K/uL Hypochromasia Present Sodium 137 (136-145) mmol/L Potassium 3.8 D (3.5-5.1) mmol/L Chloride 107 (98-107) mmol/L Carbon Dioxide 26 (21-32) mmol/L Anion Gap 4.0 (3-11) BUN 13 (7-18) mg/dl Creatinine 0.84 D (0.6-1.2) mg/dl Est Cr Clr Drug Dosing 87.9 ml/min Est GFR ( Amer) 85.1 Est GFR (Non-Af Amer) 73.4 BUN/Creatinine Ratio 15.8 (10-20) Glucose 97 (70-99) mg/dl Calcium 8.2 L (8.5-10.1) mg/dl Blood Type O Positive Antibody Screen NEGATIVE Crossmatch See Detail Microbiology 11/06/19 14:28 Gram Stain - Final Knee,Left Aerobic and Anaerobic Culture - Preliminary Staphylococcus aureus 11/06/19 14:27 Gram Stain - Final Knee,Left Aerobic and Anaerobic Culture - Preliminary No growth to date. 11/06/19 14:19 Gram Stain - Final Knee,Left Aerobic and Anaerobic Culture - Preliminary No growth to date. 11/06/19 14:25 Gram Stain - Final Knee,Left Aerobic and Anaerobic Culture - Preliminary Staphylococcus aureus 11/06/19 14:22 Gram Stain - Final Knee,Left Aerobic and Anaerobic Culture - Preliminary Staphylococcus aureus 11/06/19 14:21 Gram Stain - Final Knee,Left Aerobic and Anaerobic Culture - Preliminary Staphylococcus aureus 11/06/19 09:10 Aerobic Blood Culture - Preliminary Blood No growth in Aerobic bottle after 24 hours. Anaerobic Blood Culture - Preliminary No growth in Anaerobic bottle after 24 hours. 11/06/19 09:28 Aerobic Blood Culture - Preliminary Blood No growth in Aerobic bottle after 24 hours. Anaerobic Blood Culture - Preliminary No growth in Anaerobic bottle after 24 hours.
[2019-11-08] MEDS: DAPTOmycin 400 MG in SYRINGE 0 ML IV SCH (10:46)
--- NOTE | 2019-11-08 14:18 | Hospitalist Progress Note ---
Date of Service November 08, 2019 Assessment & Plan (1) Infection of left knee: - On Keflex/Bactrim as outpatient for presumed septic left knee joint, diagnosed on 10/29 by orthopedics. - S/p left TKA excisional arthroplasty, placement abx spacer on 11/05; POD#2 - ID consulted, will need Daptomycin IV x 6 weeks at home. - Pain management per primary team. - PT/OT for discharge planning. knee culture from 11/05 growing staph aureus, final sensitivities still pending as of this afternoon (2) History of arthroplasty of left knee: - H/o Left TKA in March 2019; also required Left Knee Incision and Drainage, Poly Swap, Primary Quad Tendon Repair in June 2019. - Management per ortho as noted above. (3) Dehydration: - Elevated BUN/Cr noted on morning labs on 11/06 - likely related to dehydration. - NS at 80 cc/hr x 1 bag. - BUN/Cr 13/0.8 today, no further fluids, drinking well (4) Anemia: - Hgb trended down, is 7.3 on 11/06, no signs of significant bleeding, transfused one unit PRBC on 11/06 - Hgb down to 6.7 this morning (11/07) unclear why? no bleeding will transfuse one additional unit, repeat H/H in the afternoon and tomorrow morning no symptoms of anemia, if stable tomorrow morning would not transfuse further, Hb should trend up without bleeding there is shortage of blood supply at this time, only transfuse if < 7 (5) GERD (gastroesophageal reflux disease): - PPI daily as inpatient. (6) Hypertension: - H/o, pt. reports she does not take anti-hypertensives at home. - BP has been intermittently elevated, could be due to pain in knee (7) Hypothyroidism: - Continue home Synthroid 75 mcg daily (prefers brand name from home) - TSH 4.260. (8) Premature ventricular contractions: - H/o, PVCs not present on exam. (9) Obesity: - BMI 32.6. - Encourage weight loss and exercise. (10) DVT prophylaxis: - SCDs; Lovenox 40 mg subQ daily. Dispo: plan for home tomorrow with home health and Daptomycin IV, awaiting final sensitivities check Hb in the morning if Hb stable there would not be anything else to add from medical perspective, ID consulted for antibiotic selection sign off tomorrow if hb stable Admission and Anticipated Discharge Date Admission Date: November 05, 2019 Subjective patient feels well, sitting up in bed has some pain in left knee not working with therapy because of her anemia Hb down to 6.7 this morning, transfused one unit, had a unit yesterday no signs of bleeding, her knee looks good, drain out cultures from knee with staph aureus, awaiting final sensitivities vitals stable she does not have any symptoms from the anemia Review of Systems Review of Systems: All systems reviewed & are unremarkable except as noted in HPI & below Musculoskeletal: + joint pain (left knee) Physical Exam Constitutional: WD/WN, vitals as above Eyes: PERRL, conjunctivae normal, anicteric sclerae ENMT: external ear and nose normal, oropharynx normal Neck: trachea midline, no thyromegaly Respiratory: normal respiratory effort, lungs clear to auscultation Cardiovascular: RRR, no murmur, no edema Gastrointestinal (Abdomen): normal bowel sounds, soft, nontender, no hepatosplenomegaly Musculoskeletal: Head/Neck/Chest: normocephalic and head atraumatic Spine: no paraspinal tenderness Extremities: + extremities abnormal to inspection (left knee immobilized, dressing intact, drain out) Skin: no rashes, warm and dry Neurologic: patellar DTR's 2+ bilat, sensation intact and PERRL, EOMI, accommodation nl, no face palsy, no dysarthria Psychiatric: A+Ox3, euthymic affect Lymphatic: no cervical or axillary lymphadenopathy Results & Data ([facility]) Vital Signs (Past 12 Hours) Vital Signs Temp Pulse Pulse Resp BP BP Pulse Ox 11/08/19 10:43 36.6 C 67 16 122/72 97 11/08/19 09:55 36.7 C 71 18 138/81 98 11/08/19 08:55 37.0 C 73 18 131/72 99 11/08/19 08:35 37.0 C 74 18 128/72 99 11/08/19 08:07 36.7 C 76 18 128/78 98 11/08/19 07:50 36.7 C 74 18 125/81 97 11/08/19 06:48 36.7 C 72 18 130/77 99 Laboratory Results Laboratory Results - last 24 hr 03/11/08/19 11/08/19 15:11 05:19 05:19 WBC 6.98 RBC 2.54 L Hgb 6.7 L* Hct 21.0 L MCV 82.7 MCH 26.4 MCHC 31.9 L RDW Std Deviation 50.7 H RDW Coeff of Jovita 16.5 H Plt Count 356 MPV 8.7 Immature Gran % (Auto) 0.1 Neut % (Auto) 56.7 Lymph % (Auto) 32.8 [place] % (Auto) 7.0 Eos % (Auto) 3.0 Baso % (Auto) 0.4 Immature Gran # (Auto) 0.01 Neut # (Auto) 3.95 Lymph # (Auto) 2.29 [place] # (Auto) 0.49 Eos # (Auto) 0.21 Baso # (Auto) 0.03 Hypochromasia Present Sodium 137 Potassium 3.8 D Chloride 107 Carbon Dioxide 26 Anion Gap 4.0 BUN 13 Creatinine 0.84 D Est Cr Clr Drug Dosing 87.9 Est GFR ( Amer) 85.1 Est GFR (Non-Af Amer) 73.4 BUN/Creatinine Ratio 15.8 Glucose 97 Calcium 8.2 L Blood Type O Positive Antibody Screen NEGATIVE Crossmatch See Detail Microbiology 11/06/19 09:10 Blood Aerobic Blood Culture - Preliminary No growth in Aerobic bottle after 48 hours. 11/06/19 09:10 Blood Anaerobic Blood Culture - Preliminary No growth in Anaerobic bottle after 48 hours. 11/06/19 09:28 Blood Aerobic Blood Culture - Preliminary No growth in Aerobic bottle after 48 hours. 11/06/19 09:28 Blood Anaerobic Blood Culture - Preliminary No growth in Anaerobic bottle after 48 hours. 11/06/19 14:27 Knee,Left Gram Stain - Final 11/06/19 14:27 Knee,Left Aerobic and Anaerobic Culture - Preliminary Staphylococcus aureus 11/06/19 14:28 Knee,Left Gram Stain - Final 11/06/19 14:28 Knee,Left Aerobic and Anaerobic Culture - Preliminary Staphylococcus aureus 11/06/19 14:19 Knee,Left Gram Stain - Final 11/06/19 14:19 Knee,Left Aerobic and Anaerobic Culture - Preliminary No growth to date. 11/06/19 14:25 Knee,Left Gram Stain - Final 11/06/19 14:25 Knee,Left Aerobic and Anaerobic Culture - Preliminary Staphylococcus aureus 11/06/19 14:22 Knee,Left Gram Stain - Final 11/06/19 14:22 Knee,Left Aerobic and Anaerobic Culture - Preliminary Staphylococcus aureus 11/06/19 14:21 Knee,Left Gram Stain - Final 11/06/19 14:21 Knee,Left Aerobic and Anaerobic Culture - Preliminary Staphylococcus aureus Medications Administered Current Inpatient Medications Acetaminophen (Tylenol) 1,000 mg PO Q8 GITA Stop: 12/06/19 21:59 Last Admin: 11/08/19 14:15 Dose: 1,000 mg Documented by: Bisacodyl (Dulcolax) 10 mg OH DAILY PRN PRN Reason: Constipation Stop: 12/06/19 19:45 Diphenhydramine HCl (Benadryl Capsule) 25 mg PO Q8H PRN PRN Reason: Itching Stop: 12/06/19 19:45 Docusate Sodium (Colace) 100 mg PO BID GITA Stop: 12/06/19 20:59 Last Admin: 11/08/19 08:30 Dose: 100 mg Documented by: Enoxaparin Sodium (Lovenox) 40 mg SQ QAM GITA Stop: 12/07/19 08:59 Last Admin: 11/08/19 08:31 Dose: 40 mg Documented by: Heparin Sodium (Beef Lung) (Heparin Sod 10 Unit/Ml Flush) 5 ml FLUSH PRN PRN PRN Reason: Flush Stop: 12/07/19 23:44 Last Admin: 11/08/19 10:47 Dose: 5 ml Documented by: Hydromorphone HCl (Dilaudid) 0.5 mg IV Q4H PRN PRN Reason: Pain or Pre PT Stop: 11/20/19 19:45 Last Admin: 11/07/19 02:54 Dose: 0.5 mg Documented by: Daptomycin 400 mg/ Syringe 8 mls @ 2.75 mls/min IV Q24H GITA; Protocol Stop: 12/18/19 08:59 Last Admin: 11/08/19 10:46 Dose: 2.75 mls/min Documented by: Sodium Chloride (Nss) 250 mls @ 15 mls/hr IV .[id number] PRN PRN Reason: For Transfusion Stop: 11/08/19 16:04 Sodium Chloride (Nss) 250 mls @ 15 mls/hr IV .[id number] PRN PRN Reason: For Transfusion Stop: 11/08/19 17:31 Magnesium Hydroxide (Milk Of Magnesia) 30 ml PO Q6H PRN PRN Reason: Constipation Stop: 12/06/19 19:45 Metoclopramide HCl (Reglan) 10 mg IV Q6H PRN PRN Reason: Nausea And Vomiting Stop: 12/06/19 19:45 Last Admin: 11/07/19 03:15 Dose: 10 mg Documented by: Miscellaneous Information (Consult) 1 ea N/A UD PRN PRN Reason: Consult Stop: 12/06/19 08:46 Multivitamins (Multivitamin Tab) 1 tab PO QAM [facility] Stop: 12/07/19 08:59 Last Admin: 11/08/19 08:30 Dose: 1 tab Documented by: Naloxone HCl (Narcan) 0.1 mg IV Q5M PRN PRN Reason: Oversedation/Resp Depression Stop: 12/06/19 19:45 *Synthroid*Non- Formulary Patient's Own Med 1 ea PO DAILYBB [facility] Stop: 12/06/19 00:00 Last Admin: 11/08/19 06:21 Dose: 75 mcg Documented by: Ondansetron HCl (Zofran) 4 mg IV Q6H PRN PRN Reason: Nausea/Vomiting Stop: 12/05/19 14:37 Last Admin: 11/07/19 02:54 Dose: 4 mg Documented by: Ondansetron HCl (Zofran) 4 mg IV Q6H PRN PRN Reason: Nausea And Vomiting Stop: 12/06/19 19:45 Oxycodone HCl (Roxicodone Immediate Rel) 5 mg PO Q4H PRN PRN Reason: Pain Stop: 11/19/19 14:46 Pantoprazole Sodium (Protonix) 40 mg PO QAM GITA Stop: 12/06/19 08:59 Last Admin: 11/08/19 08:30 Dose: 40 mg Documented by: Sennosides (Senokot) 17.2 mg PO HS [facility] Stop: 12/06/19 20:59 Last Admin: 11/07/19 21:39 Dose: 17.2 mg Documented by: Tramadol HCl (Ultram) 50 - 100 mg PO Q4H PRN PRN Reason: Pain & Pre PT Stop: 12/06/19 19:45 Last Admin: 03/22/20 11:24 Dose: 100 mg Documented by: PG Care Time/CCT Total # of Minutes Spent Total Time Spent with Patient: Total time spent is greater than 50% in coordination of care (as documented) at patient's floor/unit and/or counseling patient: Coding Level of Care Code 99096 Subseq Hosp Care Lvl 2 Diagnoses Infection of left knee M00.9 History of arthroplasty of left knee Z96.652 Dehydration E86.0 Anemia D64.9 GERD (gastroesophageal reflux disease) K21.9 Hypertension I10 Hypothyroidism E03.9 Premature ventricular contractions I49.3 Obesity E66.9 DVT prophylaxis Z29.9
[2019-11-08 15:10] LABS: Hematocrit (blood only) 24.7 % (37-47); Hemoglobin 8.1 g/dL (12.0-16.0)
[2019-11-08] MEDS: SENNA 8.6 MG TAB PO SCH (21:22)
[2019-11-09] MEDS: SYNTHROID PO SCH (05:39)
[2019-11-09] MEDS: ACETAMINOPHEN 500 MG TAB PO SCH ×2 (05:39→15:52)
[2019-11-09 05:57] LABS: Basophils # (auto) 0.02 K/uL (0-0.2); Basophils % (auto) 0.3 %; Eosinophils # (auto) 0.29 K/uL (0-0.5); Eosinophils % (auto) 4.7 %; Hematocrit (blood only) 23.8 % (37-47); Hemoglobin 7.7 g/dL (12.0-16.0); Immature Granulocytes # (auto) 0.02 K/uL (0.00-0.02); Immature Granulocytes % (auto) 0.3 %; Lymphocytes # (auto) 2.51 K/uL (1.2-3.4); Lymphocytes % (auto) 40.4 %; Mean Corpuscular Hemoglobin 26.8 pg (25-34); Mean Corpuscular Hgb Conc 32.4 g/dL (32-36); Mean Corpuscular Volume 82.9 fL (80-100); Mean Platelet Volume 8.9 fL (7.4-10.4); Monocytes # (auto) 0.36 K/uL (0.11-0.59); Monocytes % (auto) 5.8 %; Neutrophils # (auto) 3.01 K/uL (1.4-6.5); Neutrophils % (auto) 48.5 %; Platelet Count 374 K/uL (130-400); RDW Coefficient of Variation 16.2 % (11.5-14.5); RDW Standard Deviation 49.2 fL (36.4-46.3); Red Blood Count 2.87 M/uL (4.2-5.4); White Blood Count 6.21 K/uL (4.8-10.8)
[2019-11-09 06:28] LABS: BUN Creatinine Ratio 12.5 (10-20); C Reactive Protein 6.7 mg/dl (0-0.29); Calcium 8.4 mg/dl (8.5-10.1); Est GFR (African American) 87.6; Est GFR (Non-African American) 75.6; Potassium 3.8 mmol/L (3.5-5.1)
[2019-11-09 06:48] LABS: RBC Morphology Unremarkable
--- NOTE | 2019-11-09 08:00 | Orthopedic Progress Note ---
Date of Service November 09, 2019 Assessment & Plan (1) Infection of total left knee replacement: 64 yo female stable POD #3 s/p left TKA excisional arthroplasty, placement abx, MSSA, acute blood loss anemia; 1 unit transfused; 7.7 this AM. Pt currently asymptomatic. 1. Med management- PICC line in place, IV Dapto 2. DVT prophylaxis- Lovenox, SCDs 3. PT/OT 4. D/C planning- CM waiting on [facility] for Admission and Anticipated Discharge Date Admission Date: November 05, 2019 Supervising Physician Co-Signing Physician Notes Patient seen and examined, agree with above assessment and plan, doing well. LLE NVSI +EHL/FHL/TA/GS SILT grossly, +2 DP pulse, compartments soft NT, dressing cdi. A/P POD# 3 s/p explant L TKA, I+D, placement of articulating antibiotic cement spacer -Daptomycin x 6 weeks, weekly labs, ID follow up -I/O cultures + MSSA -PWB LLE -Maintain KI at all times, may remove for hygiene -HMV Drain DC'd -Hgb 7.7, patient asymptomatic, recheck in afternoon -DC planning - home with IV abx Subjective POD 3 s/p Septic Left TKA with I/D and Poly change. No complaints today. States she continues to feel better each day. Pain controlled. Review of Systems Review of Systems: All systems reviewed & are unremarkable except as noted in HPI & below Constitutional: as per Subjective / HPI Physical Exam Physical Exam: LLE NVSI +EHL/FHL/TA/GS SILT grossly, +2 DP pulse, compartments soft NT, dressing cdi. Constitutional: WD/WN, vitals as above Eyes: PERRL, conjunctivae normal, anicteric sclerae ENMT: external ear and nose normal, oropharynx normal Neck: trachea midline, no thyromegaly Respiratory: normal respiratory effort, lungs clear to auscultation Cardiovascular: RRR, no murmur, no edema Gastrointestinal (Abdomen): normal bowel sounds, soft, nontender, no hepatosplenomegaly Musculoskeletal: no cyanosis or clubbing, extremities motor strength 5/5 Skin: no rashes, warm and dry Neurologic: patellar DTR's 2+ bilat, sensation intact Psychiatric: A+Ox3, euthymic affect Lymphatic: no cervical or axillary lymphadenopathy Results & Data ([facility]) Vital Signs (Past 12 Hours) Vital Signs Temp Pulse Resp BP Pulse Ox 11/09/19 06:57 36.7 C 66 18 125/76 99 11/08/19 23:20 36.6 C 58 L 16 142/78 H 100 Laboratory Results Laboratory Results WBC 6.21 K/uL (4.8-10.8) 11/09/19 05:31 RBC 2.87 M/uL (4.2-5.4) L 11/09/19 05:31 Hgb 7.7 g/dL (12.0-16.0) L 11/09/19 05:31 Hct 23.8 % (37-47) L 11/09/19 05:31 MCV 82.9 fL (80-100) 11/09/19 05:31 MCH 26.8 pg (25-34) 11/09/19 05:31 MCHC 32.4 g/dL (32-36) 11/09/19 05:31 RDW Std Deviation 49.2 fL (36.4-46.3) H 11/09/19 05:31 RDW Coeff of Jovita 16.2 % (11.5-14.5) H 11/09/19 05:31 Plt Count 374 K/uL (130-400) 11/09/19 05:31 MPV 8.9 fL (7.4-10.4) 11/09/19 05:31 Immature Gran % (Auto) 0.3 % 11/09/19 05:31 Neut % (Auto) 48.5 % 11/09/19 05:31 Lymph % (Auto) 40.4 % 11/09/19 05:31 [place] % (Auto) 5.8 % 11/09/19 05:31 Eos % (Auto) 4.7 % 11/09/19 05:31 Baso % (Auto) 0.3 % 11/09/19 05:31 Immature Gran # (Auto) 0.02 K/uL (0.00-0.02) 11/09/19 05:31 Neut # (Auto) 3.01 K/uL (1.4-6.5) 11/09/19 05:31 Lymph # (Auto) 2.51 K/uL (1.2-3.4) 11/09/19 05:31 [place] # (Auto) 0.36 K/uL (0.11-0.59) 11/09/19 05:31 Eos # (Auto) 0.29 K/uL (0-0.5) 11/09/19 05:31 Baso # (Auto) 0.02 K/uL (0-0.2) 11/09/19 05:31 RBC Morphology Unremarkable 11/09/19 05:31 Hypochromasia Present 11/08/19 05:19 ESR 63 mm/hr (0-21) H 11/09/19 05:31 Sodium 139 mmol/L (136-145) 11/09/19 05:31 Potassium 3.8 mmol/L (3.5-5.1) 11/09/19 05:31 Chloride 109 mmol/L (98-107) H 11/09/19 05:31 Carbon Dioxide 27 mmol/L (21-32) 11/09/19 05:31 Anion Gap 3.0 (3-11) 11/09/19 05:31 BUN 10 mg/dl (7-18) 11/09/19 05:31 Creatinine 0.82 mg/dl (0.6-1.2) 11/09/19 05:31 Est Cr Clr Drug Dosing 90.0 ml/min 11/09/19 05:31 Est GFR ( Amer) 87.6 11/09/19 05:31 Est GFR (Non-Af Amer) 75.6 11/09/19 05:31 BUN/Creatinine Ratio 12.5 (10-20) 11/09/19 05:31 Glucose 109 mg/dl (70-99) H 11/09/19 05:31 Calcium 8.4 mg/dl (8.5-10.1) L 11/09/19 05:31 Iron 41 mcg/dl (35-150) 11/06/19 04:55 TIBC 195 mcg/dl (250-450) L 11/06/19 04:55 Transferrin 163 mg/dl (200-360) L 11/06/19 04:55 Transferrin % Sat 18 % (15-50) 11/06/19 04:55 Ferritin 467.6 ng/ml (8-388) H 11/06/19 04:55 C-Reactive Protein 6.70 mg/dl (0-0.29) H 11/09/19 05:31 TSH 4.260 uIu/ml (0.300-4.500) 11/06/19 04:55 Blood Type O Positive 11/05/19 15:11 Antibody Screen NEGATIVE 11/05/19 15:11 Crossmatch See Detail 11/05/19 15:11
[2019-11-09] MEDS: ENOXAPARIN INJ 40 MG/0.4 ML SYR SQ SCH (08:09)
[2019-11-09] MEDS: PANTOprazole 40 MG TAB PO SCH (08:09)
[2019-11-09] MEDS: DOCUSATE SODIUM 100 MG CAP PO SCH (08:09)
[2019-11-09] MEDS: MULTIVITAMIN TAB PO SCH (08:09)
[2019-11-09] MEDS: TRAMADOL HCL 50 MG TABLET PO PRN ×2 (08:19→17:20)
[2019-11-09] MEDS: DAPTOmycin 400 MG in SYRINGE 0 ML IV SCH (08:20)
--- NOTE | 2019-11-09 09:54 | Infectious Disease Progress Nt ---
Date of Service November 09, 2019 Assessment & Plan (1) Infection of total left knee replacement: will continue dapto, has pcn, cephalosporin allergy. blood cultures negative. OR cultures growing MSSA. will need prolonged, range of 6 weeks IV dapto. will need weekly cbc, cmp, esr, cpk. Admission and Anticipated Discharge Date Admission Date: November 05, 2019 Subjective pt growing MSSA from left knee culture, blood cultures negative, on dapto, tolerating well. afebrile. wbc 6, creat 0.8. for d/c when abx in place. Results & Data ([facility] [place]) Vital Signs (Past 12 Hours) Vital Signs Temp Pulse Resp BP Pulse Ox 11/09/19 06:57 36.7 C 66 18 125/76 99 11/08/19 23: 36.6 C 58 L 16 142/78 H 100 Laboratory Results Microbiology 11/06/19 14:19 Knee,Left Gram Stain - Final 11/06/19 14:19 Knee,Left Aerobic and Anaerobic Culture - Preliminary No growth to date. 11/06/19 14:21 Knee,Left Gram Stain - Final 11/06/19 14:21 Knee,Left Aerobic and Anaerobic Culture - Preliminary Staphylococcus aureus 11/06/19 09:10 Blood Aerobic Blood Culture - Preliminary No growth in Aerobic bottle after 48 hours. 11/06/19 09:10 Blood Anaerobic Blood Culture - Preliminary No growth in Anaerobic bottle after 48 hours. 11/06/19 09:28 Blood Aerobic Blood Culture - Preliminary No growth in Aerobic bottle after 48 hours. 11/06/19 09:28 Blood Anaerobic Blood Culture - Preliminary No growth in Anaerobic bottle after 48 hours. 11/06/19 14:27 Knee,Left Gram Stain - Final 11/06/19 14:27 Knee,Left Aerobic and Anaerobic Culture - Preliminary Staphylococcus aureus 11/06/19 14:28 Knee,Left Gram Stain - Final 11/06/19 14:28 Knee,Left Aerobic and Anaerobic Culture - Preliminary Staphylococcus aureus 11/06/19 14:25 Knee,Left Gram Stain - Final 11/06/19 14:25 Knee,Left Aerobic and Anaerobic Culture - Preliminary Staphylococcus aureus 11/06/19 14:22 Knee,Left Gram Stain - Final 11/06/19 14:22 Knee,Left Aerobic and Anaerobic Culture - Preliminary Staphylococcus aureus PG Care Time/CCT Total # of Minutes Spent Total Time Spent with Patient: Total time spent is greater than 50% in coordination of care (as documented) at patient's floor/unit and/or counseling patient: Coding Level of Care Code 75175 Subseq Hosp Care Lvl 1 Diagnoses Infection of total left knee replacement T84.54XA
--- NOTE | 2019-11-09 10:11 | Hospitalist Progress Note ---
Date of Service November 09, 2019 Assessment & Plan (1) Infection of left knee: - On Keflex/Bactrim as outpatient for presumed septic left knee joint, diagnosed on 10/29 by orthopedics. - S/p left TKA excisional arthroplasty, placement abx spacer on 11/05; POD#2 - ID consulted, will need Daptomycin IV x 6 weeks at home --> set up already. Will need weekly CBC, BMP, ESR, CPK - Pain management per primary team. - PT/OT for discharge planning -- home health Culture from 11/05 growing MSSA (2) History of arthroplasty of left knee: - H/o Left TKA in March 2019; also required Left Knee Incision and Drainage, Poly Swap, Primary Quad Tendon Repair in June 2019. - Management per ortho as noted above. (3) Dehydration: - Elevated BUN/Cr noted on morning labs on 11/06 - likely related to dehydration. - NS at 80 cc/hr x 1 bag. - BUN/Cr 10/0.82, no further fluids, drinking well (4) Anemia: - Hgb trended down, is 7.3 on 11/06, no signs of significant bleeding, transfused one unit PRBC on 11/06 - Hgb down to 6.7 mroning of 11/07-- given 1 unit PRBC - no evidence of overt bleeding, although likely significant loss following surgery -H/h 7.7/2..8 today -- repeat this afternoon --> if stable/improved, good for discharge. Rec despite no evidence of Fe def anemia, it may not be a bad idea to supplement with OTC iron supplementation for next 2 weeks. will transfuse one additional unit, repeat H/H in the afternoon and tomorrow morning there is shortage of blood supply at this time, only transfuse if < 7 (5) GERD (gastroesophageal reflux disease): - PPI daily as inpatient. (6) Hypertension: - H/o, pt. reports she does not take anti-hypertensives at home. - BP has been intermittently elevated, could be due to pain in knee Stable currently at 125/76 (7) Hypothyroidism: - Continue home Synthroid 75 mcg daily (prefers brand name from home) - TSH 4.260. (8) Premature ventricular contractions: - H/o, PVCs not present on exam. (9) Obesity: - BMI 32.6. - Encourage weight loss and exercise. (10) DVT prophylaxis: - SCDs; Lovenox 40 mg subQ daily. Dispo: repeat CBC this afternoon, then likely discharge home. Hospitalist service will sign off. Please do not hesitate to reach out for any questions/concerns. Admission and Anticipated Discharge Date Admission Date: November 05, 2019 Supervising Physician Co-Signing Physician Notes Attending Attestation: Chart reviewed in detail, care plan d/w PA Trish Dey. I agree w/ the seay components of her documentation. 64yo female w/ septic left TKA 2nd MSSA. plan - 6 weeks of IV daptomycin via PICC. acute blood loss anemia - Hb repeat this afternoon 8.4. d/c on ferrous sulfate 325mg BID. will need weekly labs while on IV daptomycin including CPK. vitals stable. other medical issues stable. from medical standpoint can discharge home. Mikey Mcdonough MD Subjective Patient seen this morning. Pain tolerable with tramadol. Denies fever, chills. Plans for continued IV abx and discussed need for weekly labs to monitor given Daptomycin IV. Patient previously unaware she would need labs and requested that home health draw these if possible. Stated that I would check with CM department to see if this is possible and will assist to arrange. Denies chest pain, shortness of breath, abdominal pain, dysuria at this time. Plans for repeat CBC this afternoon and then discharge per primary team. Review of Systems Review of Systems: All systems reviewed & are unremarkable except as noted in HPI & below Physical Exam Constitutional: WD/WN, vitals as above no acute distress Eyes: PERRL, conjunctivae normal, anicteric sclerae Neck: trachea midline, no thyromegaly Respiratory: normal respiratory effort, lungs clear to auscultation Cardiovascular: RRR, no murmur, no edema Gastrointestinal (Abdomen): normal bowel sounds, soft, nontender, no hepatosplenomegaly Musculoskeletal: dressing to R knee c/d/i NVI Calves nontender to palpation Skin: no rashes, warm and dry Neurologic: PERRL, EOMI, accommodation nl, no face palsy, no dysarthria Psychiatric: A+Ox3, euthymic affect Results & Data ([facility]) Vital Signs (Past 12 Hours) Vital Signs Temp Pulse Resp BP Pulse Ox 11/09/19 06:57 36.7 C 66 18 125/76 99 11/08/19 23:20 36.6 C 58 L 16 142/78 H 100 Laboratory Results 11/09/19 11/09/19 11/09/19 Range/Units 05:31 05:31 05:31 WBC 6.21 (4.8-10.8) K/uL RBC 2.87 L (4.2-5.4) M/uL Hgb 7.7 L (12.0-16.0) g/dL Hct 23.8 L (37-47) % MCV 82.9 (80-100) fL MCH 26.8 (25-34) pg MCHC 32.4 (32-36) g/dL RDW Std Deviation 49.2 H (36.4-46.3) fL RDW Coeff of Jovita 16.2 H (11.5-14.5) % Plt Count 374 (130-400) K/uL MPV 8.9 (7.4-10.4) fL Immature Gran % (Auto) 0.3 % Neut % (Auto) 48.5 % Lymph % (Auto) 40.4 % [place] % (Auto) 5.8 % Eos % (Auto) 4.7 % Baso % (Auto) 0.3 % Immature Gran # (Auto) 0.02 (0.00-0.02) K/uL Neut # (Auto) 3.01 (1.4-6.5) K/uL Lymph # (Auto) 2.51 (1.2-3.4) K/uL [place] # (Auto) 0.36 (0.11-0.59) K/uL Eos # (Auto) 0.29 (0-0.5) K/uL Baso # (Auto) 0.02 (0-0.2) K/uL RBC Morphology Unremarkable ESR 63 H (0-21) mm/hr Sodium 139 (136-145) mmol/L Potassium 3.8 (3.5-5.1) mmol/L Chloride 109 H (98-107) mmol/L Carbon Dioxide 27 (21-32) mmol/L Anion Gap 3.0 (3-11) BUN 10 (7-18) mg/dl Creatinine 0.82 (0.6-1.2) mg/dl Est Cr Clr Drug Dosing 90.0 ml/min Est GFR ( Amer) 87.6 Est GFR (Non-Af Amer) 75.6 BUN/Creatinine Ratio 12.5 (10-20) Glucose 109 H (70-99) mg/dl Calcium 8.4 L (8.5-10.1) mg/dl C-Reactive Protein 6.70 H (0-0.29) mg/dl 11/08/19 Range/Units 15:03 WBC (4.8-10.8) K/uL RBC (4.2-5.4) M/uL Hgb 8.1 L (12.0-16.0) g/dL Hct 24.7 L (37-47) % MCV (80-100) fL MCH (25-34) pg MCHC (32-36) g/dL RDW Std Deviation (36.4-46.3) fL RDW Coeff of Jovita (11.5-14.5) % Plt Count (130-400) K/uL MPV (7.4-10.4) fL Immature Gran % (Auto) % Neut % (Auto) % Lymph % (Auto) % [place] % (Auto) % Eos % (Auto) % Baso % (Auto) % Immature Gran # (Auto) (0.00-0.02) K/uL Neut # (Auto) (1.4-6.5) K/uL Lymph # (Auto) (1.2-3.4) K/uL [place] # (Auto) (0.11-0.59) K/uL Eos # (Auto) (0-0.5) K/uL Baso # (Auto) (0-0.2) K/uL RBC Morphology ESR (0-21) mm/hr Sodium (136-145) mmol/L Potassium (3.5-5.1) mmol/L Chloride (98-107) mmol/L Carbon Dioxide (21-32) mmol/L Anion Gap (3-11) BUN (7-18) mg/dl Creatinine (0.6-1.2) mg/dl Est Cr Clr Drug Dosing ml/min Est GFR ( Amer) Est GFR (Non-Af Amer) BUN/Creatinine Ratio (10-20) Glucose (70-99) mg/dl Calcium (8.5-10.1) mg/dl C-Reactive Protein (0-0.29) mg/dl PG Care Time/CCT Total # of Minutes Spent Total Time Spent with Patient: Total time spent is greater than 50% in coordination of care (as documented) at patient's floor/unit and/or counseling patient: Coding Level of Care Code 18017 Subseq Hosp Care Lvl 1 Diagnoses Infection of left knee M00.9 History of arthroplasty of left knee Z96.652 Dehydration E86.0 Anemia D64.9 GERD (gastroesophageal reflux disease) K21.9 Hypertension I10 Hypothyroidism E03.9 Premature ventricular contractions I49.3 Obesity E66.9 DVT prophylaxis Z29.9
[2019-11-09 15:25] LABS: Hematocrit (blood only) 25.7 % (37-47); Hemoglobin 8.4 g/dL (12.0-16.0)
--- NOTE | 2019-11-09 16:28 | Discharge Summary ---
Date of Service November 09, 2019 Admission HPI Per Admitting Provider Patient is a 64-year-old female with PSHx for Left TKA performed 03/30/19. The patient did well post operatively however sustained a mechanical fall and sustained a dehiscence of her surgical incision and quad tendon rupture. She underwent I+D, poly exchange and primary quad tendon repair on 06/22/19. The patient states she started developing a rash medial and lateral to her incision shortly after her last office appointment which was on 10/21/19. She was seen by her PCP on 10/30/19 and inflammatory labs drawn. Inflammatory labs were concerning for infectious process and the patient was asked to go to the ER how ever due to Coronavirus concern she elected to follow up in the office. The patient was seen in the office on 11/02/19 and arthrocentesis was performed and sent for Synovasure fluid analysis. Results positive alpha-defensins, CC [id number], Neuts 92.5%, culture showing gram positive cocci. The patient was directly admitted on 11/05/19 for medical optimization and surgery. Principal Diagnosis s/p Explant Left total knee, I+D, placement of articulating antibiotic cement spacer -Left knee periprosthetic joint infection Discharge Exam LLE NVSI +EHL/FHL/TA/GS SILT grossly, +2 DP pulse, compartments soft NT, dressing cdi. KI in place Constitutional WD/WN, vitals as above Discharge Data Allergies Allergy/AdvReac Type Severity Reaction Status Date / Time cephalexin Allergy Mild Hives Verified 11/05/19 13:19 blue dye AdvReac Intermediate Tachycardia Verified 06/22/19 06:53 adhesive tape AdvReac Mild SKIN Verified 06/22/19 06:53 BREAKS OUT oxycodone AdvReac Mild Nausea Verified 11/05/19 13:19 Penicillins AdvReac Mild yeast Verified 06/22/19 06:53 infection & upset stomach Consultations 11/05/19 14:47 Consult Internal Medicine Routine 11/05/19 15:27 Consult Infectious Diseases Routine 11/06/19 19:46 Consult Case Management - Discharge Planning Routine Procedures Performed Operation Date: 11/06/19 13:30 Actual Procedures p Explant with Insertion of Antibiotic Spacer(Left) - Brien Beltran DO s Left Knee Incision and Drainage, (Left) - Brien Beltran DO Hospital Course (1) Infection of total left knee replacement: The patient is a 64 -year-old female who presents with left knee periprosthetic joint infection. Admitted to [facility] on 3, medical hospitalist consulted for clearance and the patient medically optimized on 3. I indicated the patient for a explant of left total knee, I+D, placement of articulating antibiotic cement spacer, the risks, benefits and complications of the procedure include but not limited to infection, bleeding, damage to bone, nerves, vessels, surrounding soft tissue, may develop blood clots, loss of function, leg length discrepancy, dislocation, failure of the components, loosening of the components, the need for additional surgery and . The patient wished to proceed with surgery at this time and informed consent was obtained. Hospital Course: On 3 the patient was taken to the operating room, adequate anesthesia administered and underwent a left total knee, I+D, placement of articulating antibiotic cement spacer. The patient tolerated the procedure well and was taken to the PACU in stable condition. Post-operatively the patient was started on a DVT ppx medication and IV antibiotics continued. Consults were placed to infectous disease and the medical hospitalist (pre-op), physical therapy, occupational therapy and case management (post-op). On POD#1, the patient did well overnight and their pain was well controlled. L abs were drawn and the Hgb was 7.3. I/O cultures growing staph aureus, sensitivities pending. The patient did c/o feeling light headed upon ambulation and she was transfused 1 unit PRBC. Consent for PICC line obtained and placed. On POD#2, the patient continued to do well overnight. Labs were drawn, hgb 6.7, patient transfused 1 additional unit of PRBC. Repeat hgb that afternoon 8.1. Dressings were changed at this time and the incision was clean, dry and intact. Hmv Drain DC'd. On POD#3, the patient continued to do well overnight. Progressed with PT. Labs were drawn, hgb 7.7, VSS and patient asymptomatic. Repeat hgb that afternoon 8.4. Culture sensitivities returned, MSSA. Infectious disease provided final recommendations noted below, will continue dapto, has pcn, cephalosporin allergy. blood cultures negative. OR cultures growing MSSA. will need prolonged, range of 6 weeks IV dapto. will need weekly cbc, cmp, esr, cpk. The patients hospital stay was relatively uneventful and they were deemed stable by the orthopedic team and consultants to be discharged home with on 11/09/19. Discharge Instructions: Upon discharge the patient may partial weight bear through their operative extremity. They were instructed to keep the incision clean and dry at all times. The patient may shower but should not submerge the incision, avoid bathing, pools and hot tubes. The patient was given a script for pain medication and should take as instructed. The patient was given a script for DVT ppx Lovenox 40mg daily and should take as directed. The patient was in structed to not drive or travel for long distances until cleared to do so. If the patient develops any symptoms of fevers, chills, nausea, vomiting, increased redness, swelling, pain or drainage from the surgical site, they should notify the office and/or proceed to the nearest emergency room. The patient should follow up in 10-14 days after surgery for their routine post-operative follow-up appointment and should call the office to confirm the date and time. Patient also to follow up with infectious disease in regards to IV abx monitoring and for any further adjustments. 64 yo female stable POD #3 s/p left TKA excisional arthroplasty, placement abx, MSSA, acute blood loss anemia; 1 unit transfused; 7.7 this AM. Pt currently asymptomatic. 1. Med management- PICC line in place, IV Dapto 2. DVT prophylaxis- Lovenox, SCDs 3. PT/OT 4. D/C planning- CM waiting on auth for (2) Infection of left knee: Total Time Total Time Spent Total Time Spent (In Minutes): >60 minutes Discharge Plan Discharge Items Patient Disposition: Home - Home Health Services Reason For Visit: Left Knee Periprosthetic Joint Infection Discharge Diagnosis: Explant left total knee, I+D, placement of antibiotic articulating spacer Condition on Discharge: Good Activity: Per Instructions section Lifting: Wait until after follow-up appointment Bathing: Keep incision dry Bathing Comment: No bathing, pools or hot tubs. Sexual Activity: Wait until after follow-up appointment Exercise/Sports: Wait until after follow-up appointment Driving/Machine Use: No driving Weightbearing: Left partial Non-emergency contact: Primary Care Provider and Surgeon Call non-emergency contact if: you have any medication questions, your symptoms worsen, your pain is not controlled, your pain is worsening, your pain is unusual for you, your pain is concerning for you, you have a fever, your temperature is above 101, your wound has increased redness, your wound has increased drainage and your wound pain has increased Follow-up/Referrals: Armando Tejeda D.O. [Primary Care Provider] - Diet: Regular Ambulatory Orders: Basic Metabolic Panel (Q7D) Timeframe: 20191116 Location: Determined by Patient Ordered By: Trish Dey Basic Metabolic Panel (Q7D) Timeframe: 20191123 Location: Determined by Patient Ordered By: Trish Dey Basic Metabolic Panel (Q7D) Timeframe: 20191130 Location: Determined by Patient Ordered By: Trish Dey Basic Metabolic Panel (Q7D) Timeframe: 20191207 Location: Determined by Patient Ordered By: Trish Dey Basic Metabolic Panel (Q7D) Timeframe: 20191214 Location: Determined by Patient Ordered By: Trish Dey Complete Blood Count with Diff (Q7D) Timeframe: 20191123 Location: Determined by Patient Ordered By: Trish Dey Complete Blood Count with Diff (Q7D) Timeframe: 20191130 Location: Determined by Patient Ordered By: Trish Dey Complete Blood Count with Diff (Q7D) Timeframe: 20191207 Location: Determined by Patient Ordered By: Trish Dey Complete Blood Count with Diff (Q7D) Timeframe: 20191214 Location: Determined by Patient Ordered By: Trish Dey Creatine Kinase (Timed) Timeframe: 1 Week Location: Determined by Patient Ordered By: Trish Dey Creatine Kinase (Q7D) Timeframe: 20191123 Location: Determined by Patient Ordered By: Trish Dey Creatine Kinase (Q7D) Timeframe: 20191130 Location: Determined by Patient Ordered By: Trish Dey Creatine Kinase (Q7D) Timeframe: 20191207 Location: Determined by Patient Ordered By: Trish Dey Creatine Kinase (Q7D) Timeframe: 20191214 Location: Determined by Patient Ordered By: Trish Dey Addtl Attending Provider Instructions: ACTIVITY RECOMMENDATIONS: SELF CARE INSTRUCTIONS AFTER TOTAL KNEE REPLACEMENT A. You may need to continue a physical therapy program after discharge from the hospital. There are several options available to you. Your doctor will assist you in selecting the best one for you. 1. An out-patient facility 2 to 3 times a week for therapy or home therapy. 2. Continue working on all exercises taught to you in the hospital. Your goals should be to increase bending of your knee to 90 degrees and beyond and to fully straighten your knee. B. You may progress at your own pace from walking with a walker or crutches to a cane; then to no assistive devices. C. Make walking a part of your daily routine. Be up as much as comfortable with rest periods throughout the day. Rest with leg elevation is very important. Use the ice wrap frequently for the first 3-4 weeks. D. There are no restrictions on activities. You may ride in a car, shop, participate in event av operator and all social activities. E. Wear the long elastic stockings (STAS hose) 20 hours a day for 2 weeks after surgery. They can be removed several times a day for laundering and for a bath. F. You may shower, no tub baths until cleared by your doctor. SPECIAL CARE INSTRUCTIONS: VERY IMPORTANT TO READ AND REVIEW A. There are a few signs you need to watch for after you are home. Call [facility] if you notice any of the followin. Increased severe knee pain. Some pain is expected especially when you exercise. 2. Increased swelling in your leg or knee; pain or swelling of the calf muscle in either lower leg. 3. Any fluid drainage from the incision. 4. Shortness of breath or chest pain. B. Please call [facility] at if you have any concerns or questions about your operation or recovery. The doctor or his nurse will return your call promptly. C. You must take antibiotics before dental work, bladder, bowel or other surgery. Your doctor will provide you with a permanent care to carry describing this precaution. IMPORTANT: * REMEMBER TO TAKE LOVENOX 40MG DAILY FOR 4 WEEKS UNLESS OTHERWISE DIRECTED. THIS IS YOUR BLOOD THINNER. * HIGH RISK PATIENTS MAY BE PRESCRIBED A STRONGER BLOOD THINNER. THIS WILL BE PROVIDED AT DISCHARGE. * CALL IF INCREASED PAIN, REDNESS, DRAINAGE OR FEVER GREATER THAT 101. * WEAR STAS HOSE 20 HOURS PER DAY FOR 2 WEEKS. * YOU MAY HAVE A LARGE BAND-AID LIKE DRESSING (SILVERON). THIS WILL REMAIN ON YOUR INCISION FOR 7 DAYS, THEN CAN BE REMOVED. *KEEP INCISION CLEAN AND DRY AT ALL TIMES, DRESSING CHANGE WITH 4X4s, ABDs AND MARYBEL WRAP IF INCISION IS LEAKING THROUGH DRESSING, CALL THE OFFICE . FOLLOW UP VISIT: If appointment is not already scheduled: Please call [facility], Dr. Beltran to make a follow-up appointment for 2 weeks after your surgery at . Please schedule follow up with [facility] infectous disease, Dr. Cotter 1- 2 weeks upon discharge . Addtl Degree Clerk Provider Instructions: While on Daptomycin IV (your antibiotic), it is recommended that you get weekly labs, which include the following: * CBC (complete blood count) * BMP (basic metabolic profile) * CPK (creatinine kinase) * ESR [facility] may draw these labs for you. An order has been provided and the results will be forwarded to your primary care provider. Pending Studies at Discharge: No Stand-Alone Forms: My [facility], Opioid Pain Management, Smoking Cessation Medications and DC Order Prescriptions: New sennosides [Senokot] 8.6 mg Tablet 17.2 mg PO HS PRN (Reason: Constipation) Qty: 28 RF: 0 tramadol 50 mg Tablet 50 - 100 mg PO Q6H PRN (Reason: pain) Qty: 30 RF: 0 acetaminophen 500 mg Tablet 1,000 mg PO Q8 PRN (Reason: pain/fevers) Qty: 90 RF: 0 enoxaparin 40 mg/0.4 mL Syringe 40 mg subcut QAM Qty: 28 RF: 0 daptomycin 500 mg recon soln 400 mg IV DAILY 42 Days Qty: 10 RF: 0 Continued levothyroxine [Synthroid] 75 mcg Tablet 75 mcg PO QAM RF: 0 esomeprazole magnesium [Nexium] 40 mg Capsule,Delayed Release(Dr/Ec) 40 mg PO QAM RF: 0 ergocalciferol (vitamin D2) [Vitamin D2] 50,000 unit Capsule 50,000 unit PO WK RF: 0 ascorbic acid (vitamin C) [Vitamin C] 1,000 mg Tablet 1,000 mg PO QAM RF: 0 Discontinued oxycodone 5 mg capsule 5 mg PO Q6 MDD 6 tablets PRN (Reason: pain) Qty: 30 RF: 0 Discharge Orders: Discharge Order (Routine); Ordered 11/09/19 Ordered By: Brien Dawn/Other Patient Handouts: DVT Prevention, Caring for Your Central Vein Access, Peripherally Inserted Central Catheter PICC, PICC Line Flush Home Admission Data Admit Date/Time: 11/05/19 12:26 Attending Provider: Brien Beltran Admit Provider: Brien Beltran Primary Care Provider: Armando Tejeda Other Providers: Tri Cotter ; Mikey Mcdonough Other Interventions: Discharge Summary Assessment (RN) Last Done: 11/09/19 16:12 DC Date/Time DO NOT enter until pt leaves facility: 11/09/19 18:54
== END 2019-11-09 18:54 | disposition home health service (06) | DRG 465 ==
LOC: 3E 12:26